=== PATIENT | male | born 1965 | race American Indian/Alaskan Native ===

== ENCOUNTER 2022-03-13 01:23 | Inpatient (IN) | payer OTHER ==
--- NOTE | 2022-03-13 02:32 | Emergency Department Report ---
HPI - General Chief Complaint: Dyspnea/Respdistress Time Seen by Provider: 03/13/22 02:14 - [facility] HPI: Room 4 Patient is a 56-year-old male present with a chief complaint of abdominal pain. Patient states he came to the emergency department because for the past 3 days he has had intermittent diffuse abdominal pain. Patient admits to nausea but denies vomiting. Patient denies diarrhea. Patient also states for the same on time he has had dyspnea on exertion. Patient has history of congestive heart failure and states he has been compliant with his Lasix. Patient states currently while at rest and not moving he does not have abdominal pain. Patient currently denies symptoms ED Past Medical Hx - Past Medical History Previous Medical History?: Yes Hx Hypertension: Yes Hx Congestive Heart Failure: Yes Hx Diabetes: Yes - Surgical History Past Surgical History?: No - Family History Family history: no significant - Social History Smoking Status: Never Smoker Substance Use Type: None (Denies illicit drug use) ED Review of Systems ROS: Stated complaint: CHF Other details as noted in HPI Constitutional: no symptoms reported Eyes: denies: eye pain ENT: denies: throat pain Respiratory: SOB with exertion Cardiovascular: dyspnea on exertion Endocrine: no symptoms reported Gastrointestinal: abdominal pain, nausea. denies: vomiting, diarrhea Genitourinary: denies: dysuria Musculoskeletal: denies: back pain Neurological: denies: headache Physical Exam - Physical Exam Vital Signs: Vital Signs 03/13/22 03/13/22 03/13/22 01:47 02:17 02:20 Temperature 98.4 F Pulse Rate 87 Respiratory 18 17 18 Rate Blood Pressure 149/88 O2 Sat by Pulse 94 94 99 Oximetry Physical Exam: GENERAL: The patient is a morbidly obese well-nourished male lying on stretcher not appearing to be in acute distress. [] HEENT: Normocephalic. Atraumatic. Extraocular motions are intact. Patient has moist mucous membranes. NECK: Supple. Trachea midline CHEST/LUNGS: Clear to auscultation. There is no respiratory distress noted. HEART/CARDIOVASCULAR: Regular. There is no tachycardia. There is no gallop rub or murmur. ABDOMEN: Abdomen is soft, with diffuse mild discomfort to palpation. Patient has normal bowel sounds. There is no abdominal distention. SKIN: There is no diaphoresis. NEURO: The patient is awake, alert, and oriented. The patient is cooperative. The patient has no focal neurologic deficits. The patient has normal speech. GCS 15 MUSCULOSKELETAL: There is no evidence of acute injury. ED Course Vital Signs 03/13/22 03/13/22 03/13/22 01:47 02:17 02:20 Temperature 98.4 F Pulse Rate 87 Respiratory 18 17 18 Rate Blood Pressure 149/88 O2 Sat by Pulse 94 94 99 Oximetry - Reevaluation(s) Reevaluation #1: 03/13/22 03:58 After fentanyl administration patient desatted to the 60s. Patient drifts to sleep but is easily awakened by verbal and tactile stimuli and answers questions appropriately at this time. Patient placed on nonrebreather and Narcan 0.4 mg ordered ED Medical Decision Making - Lab Data Result diagrams: 03/13/22 02:30 03/13/22 02:30 Laboratory Tests 03/13/22 03/13/22 02:30 02:30 WBC 6.8 RBC 4.47 Hgb 11.0 L Hct 35.5 MCV 80 L MCH 25 L MCHC 31 L RDW 21.0 H Plt Count 192 Lymph % (Auto) 24.4 [place] % (Auto) 10.1 H Eos % (Auto) 1.5 Baso % (Auto) 0.4 Lymph # (Auto) 1.6 [place] # (Auto) 0.7 Eos # (Auto) 0.1 Baso # (Auto) 0.0 Seg Neutrophils % 63.6 Seg Neutrophils # 4.3 Sodium 141 Potassium 4.3 Chloride 98.1 Carbon Dioxide 33 H Anion Gap 14 BUN 23 H Creatinine 1.1 Estimated GFR > 60 BUN/Creatinine Ratio 21 Glucose 99 Calcium 8.1 L Total Bilirubin 0.50 AST 13 ALT 13 Alkaline Phosphatase 73 NT-Pro-B Natriuret Pep 4736 H Total Protein 7.5 Albumin 3.5 L Albumin/Globulin Ratio 0.9 Lipase 12 L - EKG Data -: EKG Interpreted by Me EKG shows normal: sinus rhythm Rate: normal - EKG Data When compared to previous EKG there are: changes noted Interpretation: nonspecific ST-T wave robert (T wave inversions leads II, 3, aVF, V2, V3, V4, V5, V6) - Radiology Data Radiology results: report reviewed (CT abdomen pelvis, chest x-ray), image reviewed (CT abdomen pelvis, chest x-ray) interpreted by me: Chest x-ray-no vascular congestion. No pneumothorax. No definite focal infiltrate [facility] [address] [place] [address] Cat Scan Report Signed Patient: JEFFY GUNTER MR#: [id number] : 1965 Acct:[id number] Age/Sex: 56 / M ADM Date: 03/13/22 Loc: ED Attending Dr: Order ing Physician: RADHA OLIVIER MD Date of Service: 03/13/22 Procedure(s): CT abdomen pelvis w con Accession Number(s): [id number] cc: RADHA OLIVIER MD CT ABDOMEN AND PELVIS WITH CONTRAST INDICATION / CLINICAL INFORMATION: Diffuse pain. TECHNIQUE: Axial CT images were obtained through the abdomen and pelvis after 100 cc Omnipaque [address] scans at this location are performed using CT dose reduction for ALARA by means of automated exposure control. COMPARISON: None available. FINDINGS: LOWER CHEST: Moderate cardiomegaly. LIVER: No focal lesion. No acute findings. GALLBLADDER: No significant abnormality. BILE DUCTS: Not well visualized. SPLEEN: No significant abnormality. PANCREAS: No significant abnormality. ADRENALS: No significant abnormality. KIDNEYS/URETERS: No stones or hydronephrosis. No solid renal lesion. STOMACH / DUODENUM / SMALL BOWEL: The stomach, duodenum, and small bowel demonstrate no significant abnormality. No specific abnormality of the mesentery demonstrated. COLON: Diverticulosis without acute inflammation. APPENDIX: No significant abnormality. PERITONEUM: No free air or free fluid are present within the abdomen or pelvis. LYMPH NODES: No significant adenopathy. AORTA / ARTERIES: No significant abnormality. IVC / VEINS: No significant abnormality. URINARY BLADDER: No significant abnormality. REPRODUCTIVE ORGANS: No significant abnormality. ADDITIONAL ABDOMINAL/PELVIC FINDINGS: None. SKELETAL SYSTEM: Degenerative changes of the lumbar spine are present with straightening of lordosis and moderate loss of intervertebral disc space at L4-5 and L5-S1. V acuum disc phenomenon present. IMPRESSION: 1. No imaging findings to suggest etiology of the provided symptoms. Signer Name: Sonia Graham II, MD Signed: 03/13/2022 5:04 AM Workstation Name: [id number] Transcribed By: ROGER Dictated By: SONIA GRAHAM II, MD Electronically Authenticated By: SONIA GRAHAM II, MD Signed Date/Time: 03/13/22 0504 DD/ 0500 TD/TT: [facility] [address] [place] [address] XRay Report Signed Patient: JEFFY UGNTER MR#: [id number] : 1965 Acct:[id number] Age/Sex: 56 / M ADM Date: 03/13/22 Loc: ED Attending Dr: Ordering Physician: RADHA OLIVIER MD Date of Service: 03/13/22 Procedure(s): XR chest 1V ap Accession Number(s): [id number] cc: RADHA OLIVIER MD Fluoro Time In Terese saúl: CHEST 1 VIEW INDICATION / CLINICAL INFORMATION: Dyspnea on exertion. COMPARISON: None available. FINDINGS: SUPPORT DEVICES: None. HEART / MEDIASTINUM: Mild cardiomegaly. LUNGS / PLEURA: Enlarged central pulmonary vasculature. Trace fluid minor fissure. Beam attenuation from chest wall soft tissues. No focal airspace consolidation. BONES: No significant osseous abnormality. ADDITIONAL FINDINGS: No significant additional findings. IMPRESSION: 1. Cardiomegaly and mild pulmonary vascular congestive changes are suggested. Mild interstitial pulmonary edema not excluded. Signer Name: Sonia Graham II, MD Signed: 03/13/2022 3:20 AM Workstation Name: [id number] Transcribed By: ROGER Dictated By: SONIA GRAHAM II, MD Electronically Authenticated By: SONIA GRAHAM II, MD Signed Date/Time: 03/13/22 0320 DD/ TD/TT: - Differential Diagnosis Gastritis, pancreatitis, CHF exacerbation Critical care attestation.: If time is entered above; I have spent that time in minutes in the direct care of this critically ill patient, excluding procedure time. ED Disposition Clinical Impression: CHF exacerbation, Abdominal pain Disposition: ADMITTED INPATIENT Is pt being admited?: Yes Does the pt Need Aspirin: Yes Condition: Fair Time of Disposition: 05:31 (Care transferred to hospitalist (Dr Yeh))
[2022-03-13 02:57] LABS: Basophils % (Auto) 0.4 % (0.0-1.8); Eosinophils # (Auto) 0.1 K/mm3 (0.0-0.4); Eosinophils % (Auto) 1.5 % (0.0-4.3); Hematocrit 35.5 % (35.5-45.6); Lymphocytes # (Auto) 1.6 K/mm3 (1.2-5.4); Lymphocytes % (Auto) 24.4 % (13.4-35.0); Mean Corpuscular HGB Conc 31 % (32-34); Mean Corpuscular Volume 80 fl (84-94); Monocytes # (Auto) 0.7 K/mm3 (0.0-0.8); Monocytes % (Auto) 10.1 % (0.0-7.3); Platelet Count 192 K/mm3 (140-440); Red Blood Count 4.47 M/mm3 (3.65-5.03)
[2022-03-13 03:07] LABS: Alanine Aminotransferase 13 units/L (7-56); Albumin 3.5 g/dL (3.9-5); BUN/Creatinine Ratio 21; Blood Urea Nitrogen 23 mg/dL (9-20); Calcium 8.1 mg/dL (8.4-10.2); Hemolysis Index 4
--- NOTE | 2022-03-13 03:25 | XRay Report ---
CHEST 1 VIEW INDICATION / CLINICAL INFORMATION: Dyspnea on exertion. COMPARISON: None available. FINDINGS: SUPPORT DEVICES: None. HEART / MEDIASTINUM: Mild cardiomegaly. LUNGS / PLEURA: Enlarged central pulmonary vasculature. Trace fluid minor fissure. Beam attenuation f rom chest wall soft tissues. No focal airspace consolidation. BONES: No significant osseous abnormality. ADDITIONAL FINDINGS: No significant additional findings. IMPRESSION: 1. Cardiomegaly and mild pulmonary vascular congestive changes are suggested. Mild interstitial pulmo nary edema not excluded. Signer Name: Pj Das II, MD Signed: 03/13/2022 3:20 AM Workstation Name: [id number]
[2022-03-13] MEDS ORDERED: ONDANSETRON 4 MG/2 ML INJ IV ONE (03:29)
[2022-03-13] MEDS ORDERED: fentaNYL 100 MCG/2 ML INJ IV ONE ×2 (03:29→12:18)
[2022-03-13] MEDS ORDERED: NALOXONE 2 MG/2 ML INJ IV ONE ×3 (03:56→08:00)
[2022-03-13] MEDS ORDERED: NALOXONE 2 MG/2 ML INJ ONE (03:56)
[2022-03-13] MEDS ORDERED: FUROSEMIDE 40 MG/4 ML INJ IV ONE (05:00)
--- NOTE | 2022-03-13 05:09 | Cat Scan Report ---
CT ABDOMEN AND PELVIS WITH CONTRAST INDICATION / CLINICAL INFORMATION: Diffuse pain. TECHNIQUE: Axial CT images were obtained through the abdomen and pelvis after 100 cc Omnipaque [address] scans at this location are performed using CT dose reduction for ALARA by means of automated exposure control. COMPARISON: None available. FINDINGS: LOWER CHEST: Moderate cardiomegaly. LIVER: No focal lesion. No acute findings. GALLBLADDER: No significant abnormality. BILE DUCTS: Not well visualized. SPLEEN: No significant abnormality. PANCREAS: No significant abnormality. ADRENALS: No significant abnormality. KIDNEYS/URETERS: No stones or hydronephrosis. No solid renal lesion. STOMACH / DUODENUM / SMALL BOWEL: The stomach, duodenum, and small bowel demonstrate no significant a bnormality. No specific abnormality of the mesentery demonstrated. COLON: Diverticulosis without acute inflammation. APPENDIX: No significant abnormality. PERITONEUM: No free air or free fluid are present within the abdomen or pelvis. LYMPH NODES: No significant adenopathy. AORTA / ARTERIES: No significant abnormality. IVC / VEINS: No significant abnormality. URINARY BLADDER: No significant abnormality. REPRODUCTIVE ORGANS: No significant abnormality. ADDITIONAL ABDOMINAL/PELVIC FINDINGS: None. SKELETAL SYSTEM: Degenerative changes of the lumbar spine are present with straightening of lordosis and moderate loss of intervertebral disc space at L4-5 and L5-S1. Vacuum disc phenomenon present. IMPRESSION: 1. No imaging findings to suggest etiology of the provided symptoms. Signer Name: Pj Das II, MD Signed: 03/13/2022 5:04 AM Workstation Name: [id number]
[2022-03-13] MEDS ORDERED: MAGNESIUM HYDROXIDE (MOM) ORAL LIQD UDC PO PRN (05:48)
[2022-03-13] MEDS ORDERED: DEXTROSE 50% IN WATER (25GM) 50 ML SYRINGE IV PRN (05:48)
[2022-03-13] MEDS ORDERED: MORPHINE 2 MG/1 ML INJ IV PRN (05:48)
[2022-03-13] MEDS ORDERED: ONDANSETRON 4 MG/2 ML INJ IV PRN (05:48)
--- NOTE | 2022-03-13 05:59 | History and Physical Report ---
History of Present Illness Date of examination: 03/13/22 Date of admission: 03/13/2022 Chief complaint: Shortness of Breath Abdominal Pain History of present illness: 56-year-old -[place] male with known history of congestive heart failure, diabetes mellitus, hypertension and morbid obesity presenting to the emergency room today complaining of abdominal pain. Abdominal pain is said to be diffuse started sometime earlier today. He denies any fever or chills, denies any vomiting but has been having some nausea. Patient denies any diarrhea. Patient also indicates that he has been having intermittent shortness of breath especially on exertion. He states he has been compliant with his medications. While in the emergency room today patient had an episode of respiratory distress and became hypoxic. He was subsequently placed on nonrebreather with improvement in his oxygen saturation. Work-up in the emergency room today, chest x-ray reveals mild pulmonary vascular congestion and cardiomegaly. Labs significant for BUN of 23 and creatinine of 1.1. All other labs were essentially unremarkable. Past History Past Medical History: diabetes, heart failure, hypertension Past Surgical History: No surgical history Social history: no significant social history Family history: no significant family history Medications and Allergies Allergies Allergy/AdvReac Type Severity Reaction Status Date / Time No Known Allergies Allergy Unverified 03/13/22 01:55 Review of Systems Constitutional: no fever, no chills Ears, nose, mouth and throat: no nasal congestion, no sore throat Cardiovascular: no chest pain, no palpitations Respiratory: shortness of breath, no cough, no wheezing Gastrointestinal: no abdominal pain, no nausea, no vomiting, no diarrhea Genitourinary Male: no dysuria, no hematuria, no nocturia Musculoskeletal: no neck pain, no low back pain Integumentary: no rash, no pruritis Neurological: no headaches, no confusion Psychiatric: no anxiety, no depression Endocrine: no polyphagia, no polyuria, no nocturia Exam - Constitutional Vitals: Temp Pulse Resp BP Pulse Ox 98.4 F 94 H 18 141/91 92 03/13/22 01:47 03/13/22 04:04 03/13/22 04:10 03/13/22 04:01 03/13/22 04:10 General appearance: Present: no acute distress, well-nourished, obese - EENT Eyes: Present: PERRL, EOM intact. Absent: scleral icterus ENT: hearing intact, clear oral mucosa, dentition normal - Neck Neck: Present: supple, normal ROM - Respiratory Respiratory effort: normal Respiratory: bilateral: rales - Cardiovascular Rhythm: regular Heart Sounds: Present: S1 & S2. Absent: gallop, systolic murmur, diastolic murmur, rub, click - Extremities Extremities: no ischemia, pulses intact, pulses symmetrical, normal temperature, Full ROM Extremity abnormal: edema (2+ bilateral lower extremity edema), ulceration (Dressing over ulcer on the lower one third of of left leg), other (Hyperpigmentation of skin on bilateral lower extremities) Peripheral Pulses: within normal limits - Abdominal General gastrointestinal: Present: soft, non-tender, non-distended (Very obese), normal bowel sounds. Absent: mass - Integumentary Integumentary: Present: clear, warm, dry, normal turgor. Absent: rash - Musculoskeletal Musculoskeletal: strength equal bilaterally - Psychiatric Psychiatric: appropriate mood/affect, intact judgment & insight, memory intact, cooperative - Neurologic Neurologic: CNII-XII intact, no focal deficits, moves all extremities Results - Labs CBC & Chem 7: 03/13/22 02:30 03/13/22 02:30 Labs: Abnormal lab results 03/13/22 03/13/22 Range/Units 02:30 02:30 Hgb 11.0 L (11.8-15.2) gm/dl MCV 80 L (84-94) fl MCH 25 L (28-32) pg MCHC 31 L (32-34) % RDW 21.0 H (13.2-15.2) % [place] % (Auto) 10.1 H (0.0-7.3) % Carbon Dioxide 33 H (22-30) mmol/L BUN 23 H (9-20) mg/dL Calcium 8.1 L (8.4-10.2) mg/dL NT-Pro-B Natriuret Pep 4736 H (0-900) pg/mL Albumin 3.5 L (3.9-5) g/dL Lipase 12 L (13-60) units/L Assessment and Plan - Patient Problems (1) CHF exacerbation Status: Acute Plan to address problem: Patient admitted and placed on diuretics Will monitor of input and output and also monitor daily weight. We will schedule patient for echocardiogram. (2) Abdominal pain Status: Acute Plan to address problem: Etiology is unclear. CT scan of the abdomen and pelvis did not reveal any acute abnormality. Will place on analgesic medication as needed. (3) Diabetes mellitus Status: Acute Plan to address problem: Patient placed on sliding scale insulin. Will monitor Accu-Cheks. (4) Morbid obesity with BMI of 50.0-59.9, adult Status: Acute Plan to address problem: BMI of 59.3 Dietary consult requested Labs modification encouraged. (5) DVT prophylaxis Status: Acute Plan to address problem: Patient placed on subcutaneous heparin. (6) Full code status Status: Acute Plan to address problem: Patient is full code.
[2022-03-13] MEDS ORDERED: FUROSEMIDE 40 MG/4 ML INJ IV SCH (06:00)
[2022-03-13 08:24] LABS: ABG Base Excess 5.7 mmol/L (-2.0-3.0); ABG HCO3 41.7 mmol/L (20.0-26.0); ABG Methemoglobin 0.6 % (0.0-1.5); ABG Oxygen Saturation 90.4 % (95.0-99.0); ABG PCO2 172.7 mm Hg; ABG PO2 90.8 mm Hg (80.0-90.0)
[2022-03-13 08:30] LABS: ABG PH 7.001 pH Units (7.350-7.450)
[2022-03-13] MEDS ORDERED: KETAMINE 500 MG/5 ML VIAL MDV ONE (08:40)
[2022-03-13] MEDS ORDERED: ROCURONIUM 50 MG/5 ML INJ IV ONE ×2 (08:41→09:05)
[2022-03-13 08:52] LABS: Bacteria,Urine 1+ /HPF (Negative); Bilirubin,Urine NEG (Negative); Blood,Urine NEG (Negative); Color,Urine Yellow (Yellow); Hyaline Casts,Urine 1 /LPF; Mucus,Urine FEW /HPF; RBC,Urine < 1.0 /HPF (0.0-6.0); Urobilinogen,Urine < 2.0 mg/dL (<2.0); WBC,Urine < 1.0 /HPF (0.0-6.0)
[2022-03-13] MEDS ORDERED: KETAMINE 200 MG/20 ML INJ MDV IV ONE (09:05)
--- NOTE | 2022-03-13 09:09 | Procedure Note ---
Date of procedure: 03/13/22 Pre-op diagnosis: Acute hypercarbic respiratory failure Post-op diagnosis: same Procedure: Received a phone call from hospital physician, Dr. Ramiro Bee, requesting intubation for ABG demonstrating acute hypercarbic respiratory failure and decompensated respiratory acidosis. Patient is on a BiPAP, and reported to be unresponsive. During quick evaluation, the patient is obtunded, and on BiPAP. A decision is made to intubate given the aforementioned. Patient moved into room 2, placed on electronic device monitor, pulse oximeter, nasal cannula, 15 L/min, and is currently on positive pressure ventilation. Patient is induced with 400 mg of ketamine, and video laryngoscopy is performed with a curved S4 laryngoscope blade. He received 200 mg of rocuronium The trachea is visualized, and a 7.5 endotracheal tube is gently inserted through the trachea. The ship's pilot balloon is inflated, and fastens in place, 24 cm at the lip. He has appropriate end-tidal capnography color change, and remains hemodynamically stable. The hospital physician is updated. An x-ray is ordered, but I will defer to the inpatient team to follow-up on postintubation sedation package, as well as contacting critical care team to arrange admission to the ICU. The patient tolerated the procedure well, without obvious complications. Assisted by respiratory therapist Shamika Kwon. Soft tissue neck-2 frontal images INDICATION: ETT PLACEment. COMPARISON: Chest x-ray from today IMPRESSION: Endotracheal tube terminates just below the level the clavicles in satisfactory position. Unchanged lung findings. NG tube projects below the sbasp-rh-ahde. Signer Name: Matthieu Pryor MD Signed: 03/13/2022 9:27 AM Workstation Name: [id number] CHEST - 1 VIEW INDICATION: resp failure ett placement COMPARISON: Earlier today FINDINGS: SUPPORT DEVICES: Nasogastric tube placement with tip projecting below the [id number]-lk-nmzh into the stomach. HEART: Stable cardiomediastinal silhouette. LUNGS/PLEURA: Unchanged findings of interstitial edema and right hilar prominence. ADDITIONAL FINDINGS: None. IMPRESSION: New NG tube projecting below the msfpi-me-hekh to the stomach. Otherwise unchanged exam. Signer Name: Matthieu Pryor MD Signed: 03/13/2022 8:41 AM Workstation N neel: [id number] Anesthesia: other (Ketamine, rocuronium) Surgeon: NATACHA SAMAYOA [employer]: JENNIFER KWON Estimated blood loss: none Condition: critical Disposition: ICU
--- NOTE | 2022-03-13 09:45 | XRay Report ---
CHEST - 1 VIEW INDICATION: resp failure ett placement COMPARISON: Earlier today FINDINGS: SUPPORT DEVICES: Nasogastric tube placement with tip projecting below the taypl-au-rdxh into the sto mach. HEART: Stable cardiomediastinal silhouette. LUNGS/PLEURA: Unchanged findings of interstitial edema and right hilar prominence. ADDITIONAL FINDINGS: None. IMPRESSION: New NG tube projecting below the iuefp-sn-hrsr to the stomach. Otherwise unchanged exam. Signer Name: Matthieu Pryor MD Signed: 03/13/2022 9:41 AM Workstation Name: [id number]
--- NOTE | 2022-03-13 10:27 | Consultation ---
History of Present Illness Consult date: 03/13/22 Consult reason: congestive heart failure, hypertension History of present illness: 56-year-old morbidly obese -[place] male presenting with shortness of breath who was found to be in hypoxemic hypercapnic respiratory failure and currently intubated on the ventilator patient is currently unresponsive given his sedation. Past History Past Medical History: diabetes, heart failure, hypertension Past Surgical History: No surgical history Social history: no significant social history Family history: no significant family history Medications and Allergies Allergies Allergy/AdvReac Type Severity Reaction Status Date / Time No Known Allergies Allergy Unverified 03/13/22 01:55 Active Meds: Active Medications Acetaminophen (Acetaminophen 325 Mg Tab) 650 mg PO Q4H PRN PRN Reason: Pain MILD(1-3)/Fever >100.5/DEJESUS Dextrose (Dextrose 50% In Water (25gm) 50 Ml Syringe) 0 ml IV Q30MIN PRN; Protocol PRN Reason: Hypoglycemia Furosemide (Furosemide 40 Mg/4 Ml Inj) 40 mg IV BID@0600,1800 GERRI Last Admin: 03/13/22 06:27 Dose: Not Given Heparin Sodium (Porcine) (Heparin 5,000 Unit/1 Ml Vial) 5,000 unit SUB-Q Q8H GERRI Insulin Human Lispro (Insulin Lispro 100 Unit/Ml) 0 unit SUB-Q ACHS ON LICENSE OF [facility]; Protocol Magnesium Hydroxide (Magnesium Hydroxide (Mom) Oral Liqd Udc) 30 ml PO Q4H PRN PRN Reason: Constipation Morphine Sulfate (Morphine 2 Mg/1 Ml Inj) 2 mg IV Q4H PRN PRN Reason: Pain, Moderate (4-6) Morphine Sulfate (Morphine 4 Mg/1 Ml Inj) 4 mg IV Q4H PRN PRN Reason: Pain , Severe (7-10) Ondansetron HCl (Ondansetron 4 Mg/2 Ml Inj) 4 mg IV Q8H PRN PRN Reason: Nausea And Vomiting Sodium Chloride (Sodium Chloride 0.9% 10 Ml Flush Syringe) 10 ml IV BID GERRI Sodium Chloride (Sodium Chloride 0.9% 10 Ml Flush Syringe) 10 ml IV PRN PRN PRN Reason: LINE FLUSH Review of Systems ROS unobtainable: due to endotracheal tube, due to mental status Physical Examination Vital Signs Temp Pulse Resp BP Pulse Ox 98.4 F 87 18 149/88 94 03/13/22 01:47 03/13/22 01:47 03/13/22 01:47 03/13/22 01:47 03/13/22 01:47 General appearance: obese (intubated) HEENT: Positive: PERRL, Normocephaly, Mucus Membranes Moist. Negative: Jaundice Neck: Positive: neck supple, trachea midline. Negative: JVD/HJR Cardiac: Positive: Regular Rate, S1/S2, Dilated, Laterally Displaced. Negative: S3 Lungs: Positive: clear to auscultation, No Wheeze, Rales, Rhonchi Neuro: Positive: No Lateralizing Findings Abdomen: Positive: Soft, Active Bowel Sounds Extremities: Present: edema, Other (peripheral ulcer left leg, hyperpigmentation both lower legs with vascular skin changes) Results 03/13/22 02:30 03/13/22 02:30 Cardiac Enzymes 03/13/22 Range/Units 02:30 AST 13 (5-40) units/L CBC 03/13/22 Range/Units 02:30 WBC 6.8 (4.5-11.0) K/mm3 RBC 4.47 (3.65-5.03) M/mm3 Hgb 11.0 L (11.8-15.2) gm/dl Hct 35.5 (35.5-45.6) % Plt Count 192 (140-440) K/mm3 Lymph # (Auto) 1.6 (1.2-5.4) K/mm3 [place] # (Auto) 0.7 (0.0-0.8) K/mm3 Eos # (Auto) 0.1 (0.0-0.4) K/mm3 Baso # (Auto) 0.0 (0.0-0.1) K/mm3 Comprehensive Metabolic Panel 03/13/22 Range/Units 02:30 Sodium 141 (137-145) mmol/L Potassium 4.3 (3.6-5.0) mmol/L Chloride 98.1 (98-107) mmol/L Carbon Dioxide 33 H (22-30) mmol/L BUN 23 H (9-20) mg/dL Creatinine 1.1 (0.8-1.3) mg/dL Glucose 99 (75-100) mg/dL Calcium 8.1 L (8.4-10.2) mg/dL AST 13 (5-40) units/L ALT 13 (7-56) units/L Alkaline Phosphatase 73 (35-129) units/L Total Protein 7.5 (6.3-8.2) g/dL Albumin 3.5 L (3.9-5) g/dL EKG interpretations - Telemetry EKG Rhythm: Sinus Rhythm Assessment and Plan 1. 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 Dilated cardiomyopathy 3. Essential hypertension 4. Respiratory failure currently intubated on the mechanical ventilator 5. Morbid obesity 6. Type 2 diabetes mellitus Patient is currently intubated and sedated. Nitro ointment to be applied for pre and afterload reduction of the left ventricle and echocardiogram be done to assess global and regional left ventricular systolic function. Intravenous diuretics. Pulmonary consultation for management of respiratory failure and ventilator
--- NOTE | 2022-03-13 10:31 | XRay Report ---
Soft tissue neck-2 frontal images INDICATION: ETT PLACEment. COMPARISON: Chest x-ray from today IMPRESSION: Endotracheal tube terminates just below the level the clavicles in satisfactory position . Unchanged lung findings. NG tube projects below the idxak-dy-akma. Signer Name: Matthieu Pryor MD Signed: 03/13/2022 10:27 AM Workstation Name: [id number]
[2022-03-13] MEDS ORDERED: IPRATROPIUM/ALBUTEROL SULFATE 3 ML AMPUL.NEB IH PRN (10:52)
[2022-03-13 11:26] LABS: ABG Base Excess 9.6 mmol/L (-2.0-3.0); ABG HCO3 35.2 mmol/L (20.0-26.0); ABG Methemoglobin 0.5 % (0.0-1.5); ABG Oxygen Saturation 93.6 % (95.0-99.0); ABG PCO2 52.3 mm Hg; ABG PH 7.446 pH Units (7.350-7.450); ABG PO2 56.8 mm Hg (80.0-90.0)
--- NOTE | 2022-03-13 12:43 | Progress Note ---
Assessment and Plan Critical care statement The high probability OF a clinically significant sudden or life-threatening deterioration of the cardiorespiratory system and endocrine system required my full and direct attention, intervention and postoperative management. The aggregate critical care time was 40 minutes. The time is in addition to time spent performing reported procedures but includes the followin: Data review and interpretation 2: Patient assessment and monitoring of vital signs 3: Documentation 4:: Medication orders and management - Patient Problems (1) Acute respiratory failure with hypoxia and hypercapnia Current Visit: Yes Status: Acute Plan to address problem: Patient to be intubated by anesthesia (2) Acute encephalopathy Current Visit: Yes Status: Acute Plan to address problem: Secondary to hypercarbia (3) COPD with acute exacerbation Current Visit: Yes Status: Acute Plan to address problem: IV abx,High dose IV steroids and IV abx Vent protocol (4) CHF exacerbation Current Visit: No Status: Acute Qualifiers: Heart failure type: unspecified Qualified Code(s): I50.9 - Heart failure, unspecified Plan to address problem: BNP is high IV Lasix for now Aldactone Echocardiogram for ejection fraction Cardiology consult requested (5) T2DM (type 2 diabetes mellitus) Current Visit: Yes Status: Acute (6) Morbid obesity with BMI of 50.0-59.9, adult Current Visit: No Status: Acute Plan to address problem: Needs to follw with bariatric surgery dept in the hospital after discharge life style modification (7) Stasis dermatitis Current Visit: Yes Status: Chronic Qualifiers: Laterality: bilateral Qualified Code(s): I87.2 - Venous insufficiency (chronic) (peripheral) Plan to address problem: Stasis dermatitis bilateral lower extremity Venous insufficiency (8) DVT prophylaxis Current Visit: No Status: Acute Plan to address problem: On Heparin and GI -prophylaxis Subjective Date of service: 03/13/22 Principal diagnosis: Acute resp failure with hypoxia and hypercarbia Interval history: 56-year-old -L[place] male with known history of congestive heart failure, diabetes mellitus, hypertension and morbid obesity presenting to the emergency room today complaining of abdominal pain. Abdominal pain is said to be diffuse started sometime earlier today. He denies any fever or chills, denies any vomiting but has been having some nausea. Patient denies any diarrhea. Patient also indicates that he has been having intermittent shortness of breath especially on exertion. He states he has been compliant with his medications. While in the emergency room today patient had an episode of respiratory distress and became hypoxic. He was subsequently placed on nonrebreather with improvement in his oxygen saturation. Work-up in the emergency room today, chest x-ray reveals mild pulmonary vascular congestion and cardiomegaly. Labs significant for BUN of 23 and creatinine of 1.1. All other labs were essentially unremarkable. On Reeval patient is unresponsive on bipap ABG repeated---reveals Pco2 of 172 Intubation was initiated Objective - Constitutional Vitals: Vital Signs - 12hr 03/13/22 03/13/22 03/13/22 01:47 02:17 02:20 Temperature 98.4 F Pulse Rate 87 Respiratory 18 17 18 Rate Blood Pressure 149/88 Blood Pressure [Left] O2 Sat by Pulse 94 94 99 Oximetry 03/13/22 03/13/22 03/13/22 02:37 04:01 04:04 Temperature Pulse Rate 78 93 H 94 H Respiratory 17 21 Rate Blood Pressure Blood Pressure 141/91 [Left] O2 Sat by Pulse 91 96 Oximetry 03/13/22 03/13/22 03/13/22 04:10 06:17 07:04 Temperature 97.1 F L Pulse Rate 97 H Respiratory 18 18 17 Rate Blood Pressure Blood Pressure 156/88 [Left] O2 Sat by Pulse 92 92 95 Oximetry 03/13/22 03/13/22 08:20 09:00 Temperature Pulse Rate 85 100 H Respiratory 14 Rate Blood Pressure 135/88 Blood Pressure 116/71 [Left] O2 Sat by Pulse 87 99 Oximetry General appearance: Present: severe distress, well-nourished - EENT Eyes: PERRL, EOM intact ENT: hearing intact, clear oral mucosa Ears: bilateral: normal - Neck Neck: supple, normal ROM - Respiratory Respiratory effort: normal Respiratory: bilateral: diminished, rhonchi, wheezing - Breasts Breasts: normal - Cardiovascular Rhythm: regular Heart Sounds: Present: S1 & S2. Absent: gallop, rub Extremities: pulses intact, No edema, normal color, Full ROM - Gastrointestinal General gastrointestinal: Present: soft, non-tender, non-distended, normal bowel sounds - Genitourinary Male genitourinary: normal - Integumentary Integumentary: clear, warm, dry - Musculoskeletal Musculoskeletal: 1, strength equal bilaterally - Neurologic Neurologic: moves all extremities - Psychiatric Psychiatric: other (Decreased responsiveness) - Labs CBC & Chem 7: 05/29/22 02:30 03/13/22 02:30 Labs: Abnormal lab results 03/13/22 03/13/22 03/13/22 Range/Units 02:30 02:30 07:50 Hgb 11.0 L (11.8-15.2) gm/dl MCV 80 L (84-94) fl MCH 25 L (28-32) pg MCHC 31 L (32-34) % RDW 21.0 H (13.2-15.2) % [place] % (Auto) 10.1 H (0.0-7.3) % ABG pH 7.001 L* (7.350-7.450) pH Units ABG pO2 90.8 H (80.0-90.0) mm Hg ABG HCO3 41.7 H (20.0-26.0) mmol/L ABG O2 Saturation 90.4 L (95.0-99.0) % ABG Base Excess 5.7 H (-2.0-3.0) mmol/L ABG Hemoglobin 12.1 L (14.0-18.0) gm/dl Oxyhemoglobin 87.7 L (95.0-99.0) % Carbon Dioxide 33 H (22-30) mmol/L BUN 23 H (9-20) mg/dL Calcium 8.1 L (8.4-10.2) mg/dL NT-Pro-B Natriuret Pep 4736 H (0-900) pg/mL Albumin 3.5 L (3.9-5) g/dL Lipase 12 L (13-60) units/L 03/13/22 Range/Units 11:10 Hgb (11.8-15.2) gm/dl MCV (84-94) fl MCH (28-32) pg MCHC (32-34) % RDW (13.2-15.2) % [place] % (Auto) (0.0-7.3) % ABG pH (7.350-7.450) pH Units ABG pO2 56.8 L (80.0-90.0) mm Hg ABG HCO3 35.2 H (20.0-26.0) mmol/L ABG O2 Saturation 93.6 L (95.0-99.0) % ABG Base Excess 9.6 H (-2.0-3.0) mmol/L ABG Hemoglobin 12.1 L (14.0-18.0) gm/dl Oxyhemoglobin 91.0 L (95.0-99.0) % Carbon Dioxide (22-30) mmol/L BUN (9-20) mg/dL Calcium (8.4-10.2) mg/dL NT-Pro-B Natriuret Pep (0-900) pg/mL Albumin (3.9-5) g/dL Lipase (13-60) units/L Short CBC 03/13/22 Range/Units 02:30 WBC 6.8 (4.5-11.0) K/mm3 Hgb 11.0 L (11.8-15.2) gm/dl Hct 35.5 (35.5-45.6) % Plt Count 192 (140-440) K/mm3 BMP 03/13/22 02:30 Sodium 141 Potassium 4.3 Chloride 98.1 Carbon Dioxide 33 H BUN 23 H Creatinine 1.1 Glucose 99 Calcium 8.1 L Liver Function 03/13/22 Range/Units 02:30 Total Bilirubin 0.50 (0.1-1.2) mg/dL AST 13 (5-40) units/L ALT 13 (7-56) units/L Alkaline Phosphatase 73 (35-129) units/L Albumin 3.5 L (3.9-5) g/dL Urine 03/13/22 Range/Units 07:20 Urine Color Yellow (Yellow) Urine pH 5.0 (5.0-7.0) Ur Specific [place] 1.012 (1.003-1.030) Urine Protein 30 mg/dl (Negative) mg/dL Urine Glucose (UA) Neg (Negative) mg/dL
[2022-03-13] MEDS ORDERED: MIDAZOLAM 5 MG/5 ML INJ MDV IV SCH (13:00)
[2022-03-13] MEDS: cefTRIAXone/NS 2 GM/100 ML 2 GM/100 ML BAG IV SCH (13:07)
[2022-03-13] MEDS: IPRATROPIUM/ALBUTEROL SULFATE 3 ML AMPUL.NEB IH SCH ×3 (13:11→19:54)
[2022-03-13] MEDS ORDERED: methylPREDNISolone Sod Succinate 125 MG/2 ML INJ IV SCH (14:00)
[2022-03-13] MEDS: SPIRONOLACTONE 50 MG TAB PO SCH (15:16)
[2022-03-13] MEDS: NITROGLYCERIN 2% OINT 1 GM TP SCH ×2 (15:20→17:56)
[2022-03-13] MEDS: INSULIN LISPRO 100 UNIT/ML SUB-Q SCH ×2 (16:22→22:57)
[2022-03-13] MEDS: HEPARIN 5,000 UNIT/1 ML VIAL SUB-Q SCH (16:27)
[2022-03-13] MEDS: AZITHROMYCIN/NS 500 MG/250 ML 500 MG/250 ML BAG IV SCH (16:40)
[2022-03-13] MEDS: hydrALAZINE 20 MG/1 ML INJ IV PRN (17:05)
[2022-03-13] MEDS: FUROSEMIDE 40 MG/4 ML INJ IV SCH (17:57)
--- NOTE | 2022-03-13 19:30 | Consultation ---
History of Present Illness Consult date: 03/13/22 Requesting physician: JENNIFER ELISE Reason for consult: other (Acute hypoxic hypercapnic resp failure on MVS) History of present illness: 56-year-old -[place] male with known history of congestive heart failure, diabetes mellitus, hypertension and morbid obesity presenting to the emergency room today complaining of abdominal pain. Abdominal pain is said to be diffuse started sometime earlier today. He denies any fever or chills, denies any vomiting but has been having some nausea. Patient denies any diarr hea. Patient also indicates that he has been having intermittent shortness of breath especially on exertion. He states he has been compliant with his medications. While in the emergency room today patient had an episode of respiratory distress and became hypoxic. He was subsequently placed on nonrebreather with improvement in his oxygen saturation. Work-up in the emergency room today, chest x-ray reveals mild pulmonary vascular congestion and cardiomegaly. Labs significant for BUN of 23 and creatinine of 1.1. All other labs were essentially unremarkable. After fentanyl administration patient dropped his SpO2 to the 60s. Patient placed on non rebreather and Narcan 0.4 mg ordered He was placed on BIPAP, with worsening encephaloapthy, ABG was ordered which showed acute severe uncompensated resp acidosis, the patient was orally intubated and admitted to the ICU Patient seen and examined. Vitals, labs, medications, chart and imaging reviewed. He cannot give a history at this time secondary to encephalopathy and intubation status. Past History Past Medical History: diabetes, heart failure, hypertension Past Surgical History: No surgical history Social history: no significant social history Family history: no significant family history Medications and Allergies Allergies Allergy/AdvReac Type Severity Reaction Status Date / Time No Known Allergies Allergy Unverified 03/13/22 01:55 Active Meds: Active Medications Acetaminophen (Acetaminophen 325 Mg Tab) 650 mg PO Q4H PRN PRN Reason: Pain MILD(1-3)/Fever >100.5/DEJESUS Albuterol/Ipratropium (Ipratropium/Albuterol Sulfate 3 Ml Ampul.Neb) 1 ampul IH Q3H PRN PRN Reason: Wheezing Albuterol/Ipratropium (Ipratropium/Albuterol Sulfate 3 Ml Ampul.Neb) 1 ampul IH QIDRT GERRI Last Admin: 03/13/22 16:01 Dose: 1 ampul Dextrose (Dextrose 50% In Water (25gm) 50 Ml Syringe) 0 ml IV Q30MIN PRN; Protocol PRN Reason: Hypoglycemia Furosemide (Furosemide 40 Mg/4 Ml Inj) 40 mg IV 0600,1800 [facility] Last Admin: 03/13/22 17:57 Dose: 40 mg Heparin Sodium (Porcine) (Heparin 5,000 Unit/1 Ml Vial) 5,000 unit SUB-Q Q8H [facility] Last Admin: 03/13/22 16:27 Dose: 5,000 unit Hydralazine HCl (Hydralazine 20 Mg/1 Ml Inj) 10 mg IV Q3H PRN PRN Reason: Hypertension Last Admin: 03/13/22 17:05 Dose: 10 mg Azithromycin (Zithromax/Ns) 500 mg in 250 mls @ 250 mls/hr IV Q24H [facility] Last Admin: 03/13/22 16:40 Dose: 250 mls/hr Ceftriaxone Sodium (Rocephin/Ns 2 Gm/100 Ml) 2 gm in 100 mls @ 200 mls/hr IV Q24HR [facility]; Protocol Last Admin: 03/13/22 13:07 Dose: 200 mls/hr Insulin Human Lispro (Insulin Lispro 100 Unit/Ml) 0 unit SUB-Q ACHS [facility]; Protocol Last Admin: 03/13/22 16:22 Dose: Not Given Magnesium Hydroxide (Magnesium Hydroxide (Mom) Oral Liqd Udc) 30 ml PO Q4H PRN PRN Reason: Constipation Methylprednisolone Sodium Succinate (Methylprednisolone Sod Succinate 125 Mg/2 Ml Inj) 125 mg IV Q8HR [facility] Last Admin: 03/13/22 15:19 Dose: 125 mg Midazolam HCl (Midazolam 5 Mg/5 Ml Inj Mdv) 5 mg IV ONCE [facility] Last Admin: 03/13/22 12:36 Dose: 5 mg Morphine Sulfate (Morphine 2 Mg/1 Ml Inj) 2 mg IV Q4H PRN PRN Reason: Pain, Moderate (4-6) Morphine Sulfate (Morphine 4 Mg/1 Ml Inj) 4 mg IV Q4H PRN PRN Reason: Pain , Severe (7-10) Nitroglycerin (Nitroglycerin 2% Oint 1 Gm) 1 inch TP TIDNTG [facility]; Protocol Last Admin: 03/13/22 17:56 Dose: 1 inch Ondansetron HCl (Ondansetron 4 Mg/2 Ml Inj) 4 mg IV Q8H PRN PRN Reason: Nausea And Vomiting Sodium Chloride (Sodium Chloride 0.9% 10 Ml Flush Syringe) 10 ml IV BID [facility] Last Admin: 03/13/22 13:08 Dose: 10 ml Sodium Chloride (Sodium Chloride 0.9% 10 Ml Flush Syringe) 10 ml IV PRN PRN PRN Reason: LINE FLUSH Spironolactone (Spironolactone 50 Mg Tab) 50 mg PO QDAY [facility] Last Admin: 03/13/22 15:16 Dose: Not Given Review of Systems ROS unobtainable: due to endotracheal tube, due to mental status Physical Examination Vital signs: Vital Signs Temp Pulse Resp BP Pulse Ox 98.4 F 87 18 149/88 94 03/13/22 01:47 03/13/22 01:47 03/13/22 01:47 03/13/22 01:47 03/13/22 01:47 General appearance: no acute distress, other (atruamatic, normocephalic, alrge neck, orally intuabted) Eyes: non-icteric ENT: other (ETT at ) Neck: supple, no lymphadenopathy, other (short large neck) Ascultation: Bilateral: diminished breath sounds, rhonchi Cardiovascular: regular rate and rhythm, other (S1,S2) Gastrointestinal: normoactive bowel sounds, soft, non-tender, non-distended Extremities: edema (3+, scrotal edema, anterior abdominal wall edema) non-focal exam (grossly), unable to assess other (Unale to assess mood or affect) Results - Laboratory Findings CBC and BMP: 03/14/22 Unknown 03/14/22 02:50 ABG ABG pH 7.446 pH Units (7.350-7.450) 03/13/22 11:10 ABG pCO2 52.3 mm Hg 03/13/22 11:10 ABG pO2 56.8 mm Hg (80.0-90.0) L 03/13/22 11:10 ABG O2 Saturation 93.6 % (95.0-99.0) L 03/13/22 11:10 Abnormal lab findings: Abnormal Labs 03/13/22 03/13/22 03/13/22 02:30 02:30 07:50 Hgb 11.0 L MCV 80 L MCH 25 L MCHC 31 L RDW 21.0 H [place] % (Auto) 10.1 H ABG pH 7.001 L* ABG pO2 90.8 H ABG HCO3 41.7 H ABG O2 Saturation 90.4 L ABG Base Excess 5.7 H ABG Hemoglobin 12.1 L Oxyhemoglobin 87.7 L Carbon Dioxide 33 H BUN 23 H Calcium 8.1 L NT-Pro-B Natriuret Pep 4736 H Albumin 3.5 L Lipase 12 L 03/13/22 11:10 Hgb MCV MCH MCHC RDW [place] % (Auto) ABG pH ABG pO2 56.8 L ABG HCO3 35.2 H ABG O2 Saturation 93.6 L ABG Base Excess 9.6 H ABG Hemoglobin 12.1 L Oxyhemoglobin 91.0 L Carbon Dioxide BUN Calcium NT-Pro-B Natriuret Pep Albumin Lipase - Diagnostic Findings Chest x-ray: image reviewed (Cardiomegaly, alveolar edema) Assessment and Plan Acute and chronic Respiratory Failure with Hypoxia and Hypercapnia 2/2 CHF Exacerbation on MVS Probable AGUS/Obesity Hypoventilation Syndrome Extreme obesity BMI 59.4 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 Daily SBT -Fentnayl infusion fro pain managemnt. Titrate to CPOT 0-2 - CXR suggesting possible pulmonary edema, pulmonary venous hypertension -Diuresis while monitoring renal function, hemodynamics and electrolyte profile -Replete electrolytes as clinically indicated - IV steroids and bronchodilators- discontinue steroids -Empiric antibiotics therapy fro CAP- get procalitonin levels. If normal, discontinue antibiotics -Accuchecks with glycemic control. target blood glucose 140-180 mg/dL. Avoid hypoglycemia -Confirm OGT position and initiate enteric nutritional support -VTE prophylaxis- Heparin -Avoid nephrotoxins and renally dose all medications -Stress ulcer prophylaxsis- start famotidine -Mobility, frequent turning, off loading per facility protocol to prevent pressure ulcers - Strict I&Os and Daily weights -Heart failure measures, Follow echocardiogram -Maintnain sleep wake cycle, avoid benzodiazepines. -Limit delirium CONDITION:CRITICAL PROGNOSIS: GUARDED CODE STATUS; FULL CODE The high probability of a clinically significant, sudden or life threatening deterioration of the respiratory, cardiovascular, neurology system required my full and direct attention, intervention and personal management. The aggregate critical care time was [75] minutes. This time is in addition to time spent performing reported procedures but includes the following: [x] Data Review and interpretation [x] Patient assessment and monitoring of vital signs [x] Documentation [x] Medication orders and management
[2022-03-13] MEDS ORDERED: LIP THERAPY VASELINE TP PRN (19:33)
[2022-03-13] MEDS ORDERED: MINERAL OIL/PETROLATUM, WHITE OPHTH OINT 3.5 GM OU PRN (19:33)
[2022-03-13] MEDS: MORPHINE 4 MG/1 ML INJ IV PRN (20:10)
[2022-03-13] MEDS: methylPREDNISolone Sod Succinate 40 MG/1 ML INJ IV SCH (22:58)
[2022-03-13] MEDS: FAMOTIDINE 20 MG/2 ML INJ IV SCH (22:58)
[2022-03-13] MEDS: SENNOSIDES/DOCUSATE SODIUM 8.6/50 MG TAB FEEDTUBE SCH (22:58)
[2022-03-14] MEDS: HEPARIN 5,000 UNIT/1 ML VIAL SUB-Q SCH ×3 (00:05→16:35)
[2022-03-14] MEDS: MORPHINE 4 MG/1 ML INJ IV PRN (01:15)
[2022-03-14 02:54] LABS: Hematocrit 35.7 % (35.5-45.6); Hemoglobin 11.2 gm/dl (11.8-15.2); Mean Corpuscular HGB Conc 31 % (32-34); Mean Corpuscular Volume 78 fl (84-94); Platelet Count 181 K/mm3 (140-440); Red Blood Count 4.55 M/mm3 (3.65-5.03)
[2022-03-14 03:05] LABS: Red Cell Distribution Width 20.8 % (13.2-15.2)
[2022-03-14 03:08] LABS: BUN/Creatinine Ratio 21; Blood Urea Nitrogen 23 mg/dL (9-20); Calcium 7.6 mg/dL (8.4-10.2); Hemolysis Index 334
[2022-03-14 04:22] LABS: Band Neutrophils # (Manual) 0.2 K/mm3; Total Cells Counted 100
[2022-03-14 04:23] LABS: Basophils % (Manual) 0 % (0.0-1.8)
[2022-03-14 04:24] LABS: Platelet Estimate Consistent w Auto
[2022-03-14 05:38] LABS: ABG Base Excess 8.9 mmol/L (-2.0-3.0); ABG HCO3 33.5 mmol/L (20.0-26.0); ABG Methemoglobin 0.6 % (0.0-1.5); ABG Oxygen Saturation 96.9 % (95.0-99.0); ABG PCO2 46.1 mm Hg; ABG PH 7.478 pH Units (7.350-7.450); ABG PO2 76.2 mm Hg (80.0-90.0)
[2022-03-14] MEDS: NITROGLYCERIN 2% OINT 1 GM TP SCH ×3 (06:27→17:05)
[2022-03-14] MEDS: FUROSEMIDE 40 MG/4 ML INJ IV SCH ×2 (06:27→17:04)
[2022-03-14] MEDS: methylPREDNISolone Sod Succinate 40 MG/1 ML INJ IV SCH (06:27)
[2022-03-14] MEDS: IPRATROPIUM/ALBUTEROL SULFATE 3 ML AMPUL.NEB IH SCH (07:27)
[2022-03-14] MEDS: cefTRIAXone/NS 2 GM/100 ML 2 GM/100 ML BAG IV SCH (09:56)
[2022-03-14] MEDS: INSULIN LISPRO 100 UNIT/ML SUB-Q SCH ×4 (09:57→21:55)
[2022-03-14] MEDS: SPIRONOLACTONE 50 MG TAB PO SCH (09:57)
[2022-03-14] MEDS: FAMOTIDINE 20 MG/2 ML INJ IV SCH ×2 (09:57→21:56)
[2022-03-14] MEDS: SENNOSIDES/DOCUSATE SODIUM 8.6/50 MG TAB FEEDTUBE SCH ×2 (09:58→21:56)
[2022-03-14] MEDS ORDERED: ALBUTEROL 2.5 MG/3 ML NEBU IH PRN ×2 (10:00)
--- NOTE | 2022-03-14 11:07 | XRay Report ---
XR chest 1V ap INDICATION / CLINICAL INFORMATION: resp distress. COMPARISON: Radiograph from yesterday. FINDINGS: SUPPORT DEVICES: Endotracheal tube projects in the midtrachea. Enteric catheter is stable, as visuali zed. HEART /PULMONARY VASCULATURE: Slight increased congestive changes. Stable cardiomegaly. LUNGS / PLEURA: Mild increase in bilateral pulmonary opacities. No pneumothorax. IMPRESSION: Slight interval worsening in congestive changes and pulmonary edema. Signer Name: Filiberto Davis MD Signed: 03/14/2022 11:03 AM Workstation Name: [id number]
--- NOTE | 2022-03-14 12:02 | Progress Note ---
Assessment and Plan 1. 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 Dilated cardiomyopathy 3. Essential hypertension 4. Respiratory failure currently intubated on the mechanical ventilator 5. Morbid obesity 6. Type 2 diabetes mellitus Plan. Patient's is hemodynamically stable and rhythm is sinus. Currently in a negative fluid balance we will continue diuresing patient to be weaned off of mechanical ventilator as per pulmonary management. Echocardiogram pending. Subjective Date of service: 03/14/22 Principal diagnosis: Acute resp failure with hypoxia and hypercarbia Interval history: Intubated on mechanical ventilator Objective Vital Signs Temp Pulse Pulse Pulse Pulse Resp Resp 03/14/22 11:38 66 03/14/22 10:30 88 21 03/14/22 10:16 67 30 H 03/14/22 10:00 66 30 H 03/14/22 09:57 64 03/14/22 09:46 67 29 H 03/14/22 09:30 72 19 03/14/22 09:16 67 30 H 03/14/22 09:00 65 30 H 03/14/22 08:46 76 20 03/14/22 08:30 67 30 H 03/14/22 08:16 63 26 H 03/14/22 08:00 68 30 H 03/14/22 07:46 66 30 H 03/14/22 07:30 64 30 H 03/14/22 07:27 67 66 30 H 03/14/22 07:16 66 30 H 03/14/22 07:00 70 30 H 03/14/22 06:46 67 30 H 03/14/22 06:30 70 20 03/14/22 06:27 68 03/14/22 06:16 69 30 H 03/14/22 06:00 69 30 H 03/14/22 05:46 68 30 H 03/14/22 05:30 71 27 H 03/14/22 05:16 122 H 30 H 03/14/22 05:00 70 30 H 03/14/22 04:46 71 30 H 03/14/22 04:30 68 30 H 03/14/22 04:16 69 30 H 03/14/22 04:00 69 73 30 H 03/14/22 03:46 72 30 H 03/14/22 03:34 71 03/14/22 03:30 69 30 H 03/14/22 03:18 99.3 F 03/14/22 03:16 71 30 H 03/14/22 03:00 71 30 H 03/14/22 02:46 71 30 H 03/14/22 02:30 74 30 H 03/14/22 02:16 74 30 H 03/14/22 02:00 77 30 H 03/14/22 01:46 76 30 H 03/14/22 01:30 85 30 H 03/14/22 01:16 85 25 H 03/14/22 01:00 78 30 H 03/14/22 00:46 77 30 H 03/14/22 00:30 77 30 H 03/14/22 00:16 77 30 H 03/14/22 00:00 99.3 F 75 73 30 H 03/13/22 23:46 79 30 H 03/13/22 23:30 79 30 H 03/13/22 23:22 78 03/13/22 23:16 74 30 H 03/13/22 23:11 75 30 H 03/13/22 23:00 78 29 H 03/13/22 22:46 74 30 H 03/13/22 22:30 73 30 H 03/13/22 22:16 71 26 H 03/13/22 22:00 75 30 H 03/13/22 21:46 70 30 H 03/13/22 21:30 75 30 H 03/13/22 21:16 75 30 H 03/13/22 21:00 77 30 H 03/13/22 20:46 71 30 H 03/13/22 20:30 75 30 H 03/13/22 20:16 77 31 H 03/13/22 20:00 77 73 26 H 03/13/22 19:54 79 74 30 H 03/13/22 19:53 98.6 F 03/13/22 19:46 74 22 03/13/22 19:30 72 30 H 03/13/22 19:16 69 30 H 03/13/22 19:00 67 30 H 03/13/22 18:46 70 30 H 03/13/22 18:41 69 30 H 03/13/22 18:00 98.2 F 30 H 03/13/22 17:56 70 03/13/22 17:36 66 03/13/22 17:31 97.9 F 05/29/22 17:30 69 30 H 03/13/22 17:05 66 03/13/22 17:00 65 30 H 03/13/22 16:30 66 28 H 03/13/22 16:08 64 30 H 03/13/22 16:00 03/13/22 15:30 65 18 03/13/22 15:20 64 03/13/22 15:00 69 29 H 03/13/22 14:30 65 29 H 03/13/22 13:10 71 03/13/22 13:00 72 19 03/13/22 12:50 74 15 03/13/22 12:40 75 29 H 03/13/22 12:32 76 24 03/13/22 12:21 03/13/22 12:20 68 03/13/22 12:00 68 24 BP Pulse Ox 03/14/22 11:38 139/74 96 03/14/22 10:30 143/89 94 03/14/22 10:16 143/89 92 03/14/22 10:00 123/75 86 03/14/22 09:57 134/71 03/14/22 09:46 134/71 95 03/14/22 09:30 133/70 96 03/14/22 09:16 133/70 92 03/14/22 09:00 131/67 96 03/14/22 08:46 141/79 96 03/14/22 08:30 141/79 88 03/14/22 08:16 142/77 94 03/14/22 08:00 137/74 95 03/14/22 07:46 137/74 93 03/14/22 07:30 124/70 96 03/14/22 07:27 137/74 96 03/14/22 07:16 124/70 94 03/14/22 07:00 115/73 93 03/14/22 06:46 121/65 93 03/14/22 06:30 130/60 87 03/14/22 06:27 126/71 03/14/22 06:16 126/71 95 03/14/22 06:00 123/68 97 03/14/22 05:46 123/68 95 03/14/22 05:30 121/78 96 03/14/22 05:16 121/78 93 03/14/22 05:00 130/68 90 03/14/22 04:46 127/74 92 03/14/22 04:30 128/64 89 03/14/22 04:16 127/66 94 03/14/22 04:00 129/65 88 03/14/22 03:46 123/63 97 03/14/22 03:34 123/63 97 03/14/22 03:30 123/63 94 03/14/22 03:18 03/14/22 03:16 104/68 93 03/14/22 03:00 113/68 92 03/14/22 02:46 106/61 94 03/14/22 02:30 120/59 92 03/14/22 02:16 112/55 96 03/14/22 02:00 116/60 92 03/14/22 01:46 115/51 95 03/14/22 01:30 119/56 92 03/14/22 01:16 124/62 93 03/14/22 01:00 136/70 88 03/14/22 00:46 138/72 94 03/14/22 00:30 140/83 94 03/14/22 00:16 136/80 91 03/14/22 00:00 133/72 88 03/13/22 23:46 135/72 96 03/13/22 23:30 138/79 86 03/13/22 23:22 138/79 97 03/13/22 23:16 137/74 97 03/13/22 23:11 146/69 97 03/13/22 23:00 146/69 90 03/13/22 22:46 139/77 93 03/13/22 22:30 141/81 90 03/13/22 22:16 143/87 93 03/13/22 22:00 151/89 90 03/13/22 21:46 145/76 95 05 21:30 144/78 91 03/13/22 21:16 148/80 97 03/13/22 21:00 143/74 94 03/13/22 20:46 141/83 94 03/13/22 20:30 137/76 92 03/13/22 20:16 153/98 91 05 20:00 164/96 94 03/13/22 19:54 164/96 97 03/13/22 19:53 03/13/22 19:46 166/103 98 05/29/22 19:30 166/103 92 03/13/22 19:16 154/91 98 03/13/22 19:00 154/91 93 03/13/22 18:46 155/97 94 03/13/22 18:41 98 03/13/22 18:00 159/97 99 03/13/22 17:56 153/97 03/13/22 17:36 03/13/22 17:31 03/13/22 17:30 162/94 97 03/13/22 17:05 165/98 03/13/22 17:00 169/101 97 03/13/22 16:30 168/92 95 03/13/22 16:08 03/13/22 16:00 164/97 96 03/13/22 15:30 153/92 99 03/13/22 15:20 153/92 03/13/22 15:00 124/89 97 03/13/22 14:30 148/82 100 03/13/22 13:10 127/78 98 03/13/22 13:00 153/65 95 03/13/22 12:50 138/63 93 03/13/22 12:40 153/65 96 03/13/22 12:32 162/108 03/13/22 12:21 162/108 78 L 03/13/22 12:20 158/102 100 03/13/22 12:00 158/102 93 - Physical Examination General: Other (intubated and sedated,Morbidly obese) HEENT: Positive: PERRL, Normocephaly, Mucus Membranes Moist. Negative: Jaundice Neck: Positive: neck supple, trachea midline. Negative: JVD/HJR Cardiac: Positive: Regular Rate, S1/S2, PMI, Dilated, Laterally Displaced Lungs: Positive: clear to auscultation, No Wheeze, Rales, Rhonchi Neuro: Positive: No Lateralizing Findings, Other (Intubatd and sedated) Abdomen: Positive: Soft, Active Bowel Sounds Extremities: Present: edema, Other (peripheral ulcer left leg, hyperpigmentation both lower legs with vascular skin changes) - Labs and Meds CBC 03/14/22 Range/Units Unknown WBC 6.6 (4.5-11.0) K/mm3 RBC 4.55 (3.65-5.03) M/mm3 Hgb 11.2 L (11.8-15.2) gm/dl Hct 35.7 (35.5-45.6) % Plt Count 181 (140-440) K/mm3 Comprehensive Metabolic Panel 03/14/22 Range/Units 02:50 Sodium 139 (137-145) mmol/L Potassium 4.0 (3.6-5.0) mmol/L Chloride 97.2 L (98-107) mmol/L Carbon Dioxide 30 (22-30) mmol/L BUN 23 H (9-20) mg/dL Creatinine 1.1 (0.8-1.3) mg/dL Glucose 132 H (75-100) mg/dL Calcium 7.6 L (8.4-10.2) mg/dL
--- NOTE | 2022-03-14 12:25 | Progress Note ---
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 Daily SBT -Fentanyl infusion for pain management- ordered but not started. Patient states he feels comfortable -Continue diuresis while monitoring renal function, hemodynamics and electrolyte profile -Replete electrolytes as clinically indicated -Empiric antibiotics therapy for CAP-await procalcitonin levels. If normal, discontinue antibiotics -Accuchecks with glycemic control. target blood glucose 140-180 mg/dL. Avoid hypoglycemia -VTE prophylaxis- Heparin -Avoid nephrotoxins and renally dose all medications -Stress ulcer prophylaxis- famotidine -Mobility, frequent turning, off loading per facility protocol to prevent pre ssure ulcers - Strict I&Os and Daily weights -Heart failure measures -Maintain sleep wake cycle, avoid benzodiazepines. -Limit delirium Will need aggressive weight loss management, dietary and life style modifications Sleep study as outpatient, evaluation for surgical bariatric intervention CONDITION:CRITICAL PROGNOSIS: GUARDED CODE STATUS; FULL CODE The high probability of a clinically significant, sudden or life threatening deterioration of the respiratory, cardiovascular, neurology system required my full and direct attention, intervention and personal management. The aggregate critical care time was [35] minutes. 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 No adverse overnight events reported. Discussed with nursing and respiratory staff. remains orally intubated FIO2 70% PEEP 8 No reported fevers, no diarrhea, no emesis Objective Vital Signs - 12hr 03/14/22 03/14/22 03/14/22 00:30 00:46 01:00 Temperature Pulse Rate 77 77 78 Pulse Rate [ Anterior Bilateral] Pulse Rate [ From Monitor] Respiratory 30 H 30 H 30 H Rate Respiratory Rate [Anterior Bilateral] Blood Pressure 140/83 138/72 136/70 O2 Sat by Pulse 94 94 88 Oximetry 03/14/22 03/14/22 03/14/22 01:16 01:30 01:46 Temperature Pulse Rate 85 85 76 Pulse Rate [ Anterior Bilateral] Pulse Rate [ From Monitor] Respiratory 25 H 30 H 30 H Rate Respiratory Rate [Anterior Bilateral] Blood Pressure 124/62 119/56 115/51 O2 Sat by Pulse 93 92 95 Oximetry 03/14/22 03/14/22 03/14/22 02:00 02:16 02:30 Temperature Pulse Rate 77 74 74 Pulse Rate [ Anterior Bilateral] Pulse Rate [ From Monitor] Respiratory 30 H 30 H 30 H Rate Respiratory Rate [Anterior Bilateral] Blood Pressure 116/60 112/55 120/59 O2 Sat by Pulse 92 96 92 Oximetry 03/14/22 03/14/22 03/14/22 02:46 03:00 03:16 Temperature Pulse Rate 71 71 71 Pulse Rate [ Anterior Bilateral] Pulse Rate [ From Monitor] Respiratory 30 H 30 H 30 H Rate Respiratory Rate [Anterior Bilateral] Blood Pressure 106/61 113/68 104/68 O2 Sat by Pulse 94 92 93 Oximetry 03/14/22 03/14/22 03/14/22 03:18 03:30 03:34 Temperature 99.3 F Pulse Rate 69 71 Pulse Rate [ Anterior Bilateral] Pulse Rate [ From Monitor] Respiratory 30 H Rate Respiratory Rate [Anterior Bilateral] Blood Pressure 123/63 123/63 O2 Sat by Pulse 94 97 Oximetry 03/14/22 03/14/22 03/14/22 03:46 04:00 04:16 Temperature Pulse Rate 72 69 69 Pulse Rate [ Anterior Bilateral] Pulse Rate [ 73 From Monitor] Respiratory 30 H 30 H 30 H Rate Respiratory Rate [Anterior Bilateral] Blood Pressure 123/63 129/65 127/66 O2 Sat by Pulse 97 88 94 Oximetry 03/14/22 03/14/22 03/14/22 04:30 04:46 05:00 Temperature Pulse Rate 68 71 70 Pulse Rate [ Anterior Bilateral] Pulse Rate [ From Monitor] Respiratory 30 H 30 H 30 H Rate Respiratory Rate [Anterior Bilateral] Blood Pressure 128/64 127/74 130/68 O2 Sat by Pulse 89 92 90 Oximetry 03/14/22 03/14/22 03/14/22 05:16 05:30 05:46 Temperature Pulse Rate 122 H 71 68 Pulse Rate [ Anterior Bilateral] Pulse Rate [ From Monitor] Respiratory 30 H 27 H 30 H Rate Respiratory Rate [Anterior Bilateral] Blood Pressure 121/78 121/78 123/68 O2 Sat by Pulse 93 96 95 Oximetry 03/14/22 03/14/22 03/14/22 06:00 06:16 06:27 Temperature Pulse Rate 69 69 68 Pulse Rate [ Anterior Bilateral] Pulse Rate [ From Monitor] Respiratory 30 H 30 H Rate Respiratory Rate [Anterior Bilateral] Blood Pressure 123/68 126/71 126/71 O2 Sat by Pulse 97 95 Oximetry 03/14/22 03/14/22 03/14/22 06:30 06:46 07:00 Temperature Pulse Rate 70 67 70 Pulse Rate [ Anterior Bilateral] Pulse Rate [ From Monitor] Respiratory 20 30 H 30 H Rate Respiratory Rate [Anterior Bilateral] Blood Pressure 130/60 121/65 115/73 O2 Sat by Pulse 87 93 93 Oximetry 03/14/22 03/14/22 03/14/22 07:16 07:27 07:30 Temperature Pulse Rate 66 67 64 Pulse Rate [ 66 Anterior Bilateral] Pulse Rate [ From Monitor] Respiratory 30 H 30 H Rate Respiratory 30 H Rate [Anterior Bilateral] Blood Pressure 124/70 137/74 124/70 O2 Sat by Pulse 94 96 96 Oximetry 03/14/22 03/14/22 03/14/22 07:46 08:00 08:16 Temperature Pulse Rate 66 68 63 Pulse Rate [ Anterior Bilateral] Pulse Rate [ From Monitor] Respiratory 30 H 30 H 26 H Rate Respiratory Rate [Anterior Bilateral] Blood Pressure 137/74 137/74 142/77 O2 Sat by Pulse 93 95 94 Oximetry 03/14/22 03/14/22 03/14/22 08:30 08:46 09:00 Temperature Pulse Rate 67 76 65 Pulse Rate [ Anterior Bilateral] Pulse Rate [ From Monitor] Respiratory 30 H 20 30 H Rate Respiratory Rate [Anterior Bilateral] Blood Pressure 141/79 141/79 131/67 O2 Sat by Pulse 88 96 96 Oximetry 03/14/22 03/14/22 03/14/22 09:16 09:30 09:46 Temperature Pulse Rate 67 72 67 Pulse Rate [ Anterior Bilateral] Pulse Rate [ From Monitor] Respiratory 30 H 19 29 H Rate Respiratory Rate [Anterior Bilateral] Blood Pressure 133/70 133/70 134/71 O2 Sat by Pulse 92 96 95 Oximetry 03/14/22 03/14/22 03/14/22 09:57 10:00 10:16 Temperature Pulse Rate 64 66 67 Pulse Rate [ Anterior Bilateral] Pulse Rate [ From Monitor] Respiratory 30 H 30 H Rate Respiratory Rate [Anterior Bilateral] Blood Pressure 134/71 123/75 143/89 O2 Sat by Pulse 86 92 Oximetry 03/14/22 03/14/22 10:30 11:38 Temperature Pulse Rate 88 66 Pulse Rate [ Anterior Bilateral] Pulse Rate [ From Monitor] Respiratory 21 Rate Respiratory Rate [Anterior Bilateral] Blood Pressure 143/89 139/74 O2 Sat by Pulse 94 96 Oximetry Constitutional: no acute distress, alert, other (atruamatic, normocephalic, large neck, orally intuabted) Eyes: non-icteric ENT: other (ETT at ) Neck: supple, no lymphadenopathy, other (short large neck, tracheostomy scar) Effort: mildly labored Ascultation: Bilateral: diminished breath sounds, rhonchi Cardiovascular: regular rate and rhythm, other (S1,S2) Gastrointestinal: normoactive bowel sounds, soft, non-tender, non-distended Extremities: no cyanosis, edema (3+, scrotal edema, anterior abdominal wall gena a), other Neurologic: normal mental status, non-focal exam (grossly), pupils equal and round, motor strength normal and Psychiatric: mood appropriate, affect normal CBC and BMP: 03/16/22 08:04 03/16/22 08:04 ABG, PT/INR, D-dimer: ABG ABG pH 7.478 pH Units (7.350-7.450) H 03/14/22 05:24 ABG pCO2 46.1 mm Hg 03/14/22 05:24 ABG pO2 76.2 mm Hg (80.0-90.0) L 03/14/22 05:24 ABG O2 Saturation 96.9 % (95.0-99.0) 03/14/22 05:24 Abnormal lab findings: Abnormal Labs 03/13/22 03/13/22 03/13/22 02:30 02:30 07:50 Hgb 11.0 L MCV 80 L MCH 25 L MCHC 31 L RDW 21.0 H [place] % (Auto) 10.1 H Seg Neuts % (Manual) Lymphocytes % (Manual) Lymphocytes # (Manual) ABG pH 7.001 L* ABG pO2 90.8 H ABG HCO3 41.7 H ABG O2 Saturation 90.4 L ABG Base Excess 5.7 H ABG Hemoglobin 12.1 L Oxyhemoglobin 87.7 L Chloride Carbon Dioxide 33 H BUN 23 H Glucose POC Glucose Calcium 8.1 L NT-Pro-B Natriuret Pep 4736 H Albumin 3.5 L Lipase 12 L 03/13/22 03/13/22 03/14/22 11:10 21:52 02:50 Hgb MCV MCH MCHC RDW [place] % (Auto) Seg Neuts % (Manual) Lymphocytes % (Manual) Lymphocytes # (Manual) ABG pH ABG pO2 56.8 L ABG HCO3 35.2 H ABG O2 Saturation 93.6 L ABG Base Excess 9.6 H ABG Hemoglobin 12.1 L Oxyhemoglobin 91.0 L Chloride 97.2 L Carbon Dioxide BUN 23 H Glucose 132 H POC Glucose 107 H Calcium 7.6 L NT-Pro-B Natriuret Pep Albumin Lipase 03/14/22 03/14/22 03/14/22 05:24 09:54 Unknown Hgb 11.2 L MCV 78 L MCH 25 L MCHC 31 L RDW 20.8 H [place] % (Auto) Seg Neuts % (Manual) 89.0 H Lymphocytes % (Manual) 4.0 L Lymphocytes # (Manual) 0.3 L ABG pH 7.478 H ABG pO2 76.2 L ABG HCO3 33.5 H ABG O2 Saturation ABG Base Excess 8.9 H ABG Hemoglobin 11.4 L Oxyhemoglobin 94.8 L Chloride Carbon Dioxide BUN Glucose POC Glucose 145 H Calcium NT-Pro-B Natriuret Pep Albumin Lipase Chest x-ray: image reviewed (Pulmonary edema) Allied health notes reviewed: RT
[2022-03-14] MEDS: AZITHROMYCIN/NS 500 MG/250 ML 500 MG/250 ML BAG IV SCH (12:42)
--- NOTE | 2022-03-14 14:25 | Progress Note ---
<EDGARSUZAN HKolby - Last Filed: 03/14/22 14:23> Assessment and Plan Assessment and plan: This is a 56-year-old male with CHF, DM, HTN, morbid obesity admitted with acute hypercarbic respiratory failure, acute decompensated chronic combined systolic and diastolic heart failure Neuro: NAD -As needed fentanyl -Precedex gtt -Avoid delirium -Reorientation as needed -Maintain sleep-wake cycle -As needed analgesia Cardiac: Acute decompensated chronic combined systolic and diastolic heart failure, h/o HTN -Cardiology consulted, appreciate recommendations -Blood pressure monitoring per protocol -Echocardiogram pending -Diuresis with Lasix and Aldactone -proBNP 4736 Respiratory: Acute hypercapnic and hypoxic respiratory failure, ? OHS versus AGUS -CCM consulted, appreciate recommendations -Intubated 03/13 wtih 7.5 OETT at 24 cm at lip -A.m. vent settings: Assist-control/PRVC tidal volume 500, rate 30, PEEP 10, FiO2 70% -See RT notes for titration -A.m. ABG and CXR noted -VAP bundle -SPO2 monitoring GI: Morbid obesity -24 hours -2024 mL -PPI -NTR consulted for tube feedings -BR: Senokat -CT abdomen/pelvis with contrast showed no acute findings, moderate cardiomegaly, diverticulosis without acute inflammation, degenerative changes of the lumbar spine present with straightening of lordosis and moderate loss of intervertebral disc space at L4-5 and L5 -S1, vacuum disc phenomenon present : NAD -Nephrology consulted, appreciate recommendations -Strict intake and output -Renally dose medications -Avoid nephrotoxic medications -Daily weights -Trend BMP ID: ? CAP, lower extremity cellulites -Infectious disease consulted, appreciate recommendation -Antibiotic therapy with azithromycin and Rocephin -x/x precautions -f/u blood culture -Monitor WBC and temperature curve Endo: h/o DM -Avoid hypoglycemia -SSI -Accu-Cheks q. 6hr Heme: NAD -Trend CBC -heparin subq -Transfuse hemoglobin less than 7 -Monitor for signs of bleeding -SCDs to BLE while in bed The high probability of a clinically significant, sudden or life threatening deterioration of the [resp/cardio] system(s) required my full and direct attention, intervention and personal management. The aggregate critical care time was [60] minutes. This time is in addition to time spent performing reported procedures but includes the following: [x] Data Review and interpretation [x] Patient assessment and monitoring of vital signs [x] Documentation [x] Medication orders and management Disposition Plan: icu Total Time Spent with Patient (Minutes): 60 History Interval history: This is a 56-year-old male with CHF, DM, HTN, MO presents to the emergency department on 03/13 with complaints of diffuse abdominal pain which started earlier in the day with nausea and intermittent shortness of breath on exertion. In the emergency department patient had an episode of respiratory distress and became hypoxic and was placed on nonrebreather with improvement his oxygen saturations. Work-up in the emergency department included a CXR which showed mi ld pulmonary vascular congestion and cardiomegaly and lab work significant for elevated creatinine of 1.1. Patient was admitted to the hospitalist service with consults to cardiology. While in the emergency department patient's respiratory distress progressed to acute hypercarbic respiratory failure with decompensated respiratory acidosis while on BiPAP and patient became unresponsive and had to be intubated in the emergency department. [facility] was sent consulted and patient transferred to ICU. Hospital course to date: 03/14: Patient remains intubated with FiO2 of 70%, CXR shows cardiomegaly with pulmonary edema. We will continue antibiotics until procalcitonin results. Continue diuresis. Wean respiratory support as tolerated. Fentanyl as needed as needed. Patient has sedated however states that he is comfortable. Hospitalist Physical - Constitutional Vitals: Temp Pulse Resp BP Pulse Ox 99.3 F 62 30 H 143/79 94 03/14/22 03:18 03/14/22 12:42 03/14/22 12:16 03/14/22 12:42 03/14/22 12:16 General appearance: Present: no acute distress, well-nourished, obese - EENT Eyes: Present: PERRL, EOM intact ENT: hearing intact, clear oral mucosa, dentition normal - Neck Neck: Present: normal ROM - Respiratory Respiratory effort: normal Respiratory: bilateral: CTA, diminished - Cardiovascular Rhythm: regular Heart Sounds: Present: S1 & S2. Absent: systolic murmur, diastolic murmur - Extremities Extremities: no ischemia, pulses intact, pulses symmetrical, No edema, normal temperature, normal color Peripheral Pulses: within normal limits - Abdominal General gastrointestinal: soft, non-tender, non-distended, normal bowel sounds - Integumentary Integumentary: Present: warm, dry - Psychiatric Psychiatric: appropriate mood/affect, cooperative - Neurologic Neurologic: CNII-XII intact, no focal deficits, moves all extremities - Allied Health Allied health notes reviewed: nursing, RT, social work Results - Labs CBC & Chem 7: 03/14/22 Unknown 03/14/22 02:50 Labs: Laboratory Last Values WBC 6.6 K/mm3 (4.5-11.0) 03/14/22 Unknown RBC 4.55 M/mm3 (3.65-5.03) 03/14/22 Unknown Hgb 11.2 gm/dl (11.8-15.2) L 03/14/22 Unknown Hct 35.7 % (35.5-45.6) 03/14/22 Unknown MCV 78 fl (84-94) L 03/14/22 Unknown MCH 25 pg (28-32) L 03/14/22 Unknown MCHC 31 % (32-34) L 03/14/22 Unknown RDW 20.8 % (13.2-15.2) H 03/14/22 Unknown Plt Count 181 K/mm3 (140-440) 03/14/22 Unknown Lymph % (Auto) 24.4 % (13.4-35.0) 03/13/22 02:30 [place] % (Auto) 10.1 % (0.0-7.3) H 03/13/22 02:30 Eos % (Auto) 1.5 % (0.0-4.3) 03/13/22 02:30 Baso % (Auto) 0.4 % (0.0-1.8) 03/13/22 02:30 Lymph # (Auto) 1.6 K/mm3 (1.2-5.4) 03/13/22 02:30 [place] # (Auto) 0.7 K/mm3 (0.0-0.8) 03/13/22 02:30 Eos # (Auto) 0.1 K/mm3 (0.0-0.4) 03/13/22 02:30 Baso # (Auto) 0.0 K/mm3 (0.0-0.1) 03/13/22 02:30 Add Manual Diff Complete 03/14/22 Unknown Total Counted 100 03/14/22 Unknown Seg Neutrophils % Snowmaker 03/14/22 Unknown Seg Neuts % (Manual) 89.0 % (40.0-70.0) H 03/14/22 Unknown Band Neutrophils % 3.0 % 03/14/22 Unknown Lymphocytes % (Manual) 4.0 % (13.4-35.0) L 03/14/22 Unknown Reactive Lymphs % (Man) 0 % 03/14/22 Unknown Monocytes % (Manual) 3.0 % (0.0-7.3) 03/14/22 Unknown Eosinophils % (Manual) 1.0 % (0.0-4.3) 03/14/22 Unknown Basophils % (Manual) 0 % (0.0-1.8) 03/14/22 Unknown Metamyelocytes % 0 % 03/14/22 Unknown Myelocytes % 0 % 03/14/22 Unknown Promyelocytes % 0 % 03/14/22 Unknown Blast Cells % 0 % 03/14/22 Unknown Nucleated RBC % Not Reportable 03/14/22 Unknown Seg Neutrophils # 4.3 K/mm3 (1.8-7.7) 03/13/22 02:30 Seg Neutrophils # Man 5.9 K/mm3 (1.8-7.7) 03/14/22 Unknown Band Neutrophils # 0.2 K/mm3 03/14/22 Unknown Lymphocytes # (Manual) 0.3 K/mm3 (1.2-5.4) L 03/14/22 Unknown Abs React Lymphs (Man) 0.0 K/mm3 03/14/22 Unknown Monocytes # (Manual) 0.2 K/mm3 (0.0-0.8) 03/14/22 Unknown Eosinophils # (Manual) 0.1 K/mm3 (0.0-0.4) 03/14/22 Unknown Basophils # (Manual) 0.0 K/mm3 (0.0-0.1) 03/14/22 Unknown Metamyelocytes # 0.0 K/mm3 03/14/22 Unknown Myelocytes # 0.0 K/mm3 03/14/22 Unknown Promyelocytes # 0.0 K/mm3 03/14/22 Unknown Blast Cells # 0.0 K/mm3 03/14/22 Unknown WBC Morphology Not Reportable 03/14/22 Unknown Hypersegmented Neuts Not Reportable 03/14/22 Unknown Hyposegmented Neuts Not Reportable 03/14/22 Unknown Hypogranular Neuts Not Reportable 03/14/22 Unknown Smudge Cells Not Reportable 03/14/22 Unknown Toxic Granulation Not Reportable 03/14/22 Unknown Toxic Vacuolation Not Reportable 03/14/22 Unknown Dohle Bodies Not Reportable 03/14/22 Unknown Pelger-Huet Anomaly Not Reportable 03/14/22 Unknown Jill Rods Not Reportable 03/14/22 Unknown Platelet Estimate Consistent w auto 03/14/22 Unknown Clumped Platelets Not Reportable 03/14/22 Unknown Plt Clumps, EDTA Not Reportable 03/14/22 Unknown Large Platelets Not Reportable 03/14/22 Unknown Giant Platelets Not Reportable 03/14/22 Unknown Platelet Satelliting Not Reportable 03/14/22 Unknown Plt Morphology Comment Not Reportable 03/14/22 Unknown RBC Morphology Not Reportable 03/14/22 Unknown Dimorphic RBCs Not Reportable 03/14/22 Unknown Polychromasia Not Reportable 03/14/22 Unknown Hypochromasia Not Reportable 03/14/22 Unknown Poikilocytosis Not Reportable 03/14/22 Unknown Anisocytosis Not Reportable 03/14/22 Unknown Microcytosis Few 03/14/22 Unknown Macrocytosis Not Reportable 03/14/22 Unknown Spherocytes Not Reportable 03/14/22 Unknown Pappenheimer Bodies Not Reportable 03/14/22 Unknown Sickle Cells Not Reportable 03/14/22 Unknown Target Cells Not Reportable 03/14/22 Unknown Tear Drop Cells Not Reportable 03/14/22 Unknown Ovalocytes Not Reportable 03/14/22 Unknown Helmet Cells Not Reportable 03/14/22 Unknown Rgullon-Newhope Bodies Not Reportable 03/14/22 Unknown [place] Rings Not Reportable 03/14/22 Unknown [place] Cells Not Reportable 03/14/22 Unknown Bite Cells Not Reportable 03/14/22 Unknown Crenated Cell Not Reportable 03/14/22 Unknown Elliptocytes Not Reportable 03/14/22 Unknown Acanthocytes (Spur) Not Reportable 03/14/22 Unknown Rouleaux Not Reportable 03/14/22 Unknown Hemoglobin C Crystals Not Reportable 03/14/22 Unknown Schistocytes Not Reportable 03/14/22 Unknown Malaria parasites Not Reportable 03/14/22 Unknown Martell Bodies Not Reportable 03/14/22 Unknown Hem Pathologist Commnt No 03/14/22 Unknown ABG pH 7.478 pH Units (7.350-7.450) H 03/14/22 05:24 ABG pCO2 46.1 mm Hg 03/14/22 05:24 ABG pO2 76.2 mm Hg (80.0-90.0) L 03/14/22 05:24 ABG HCO3 33.5 mmol/L (20.0-26.0) H 03/14/22 05:24 ABG O2 Saturation 96.9 % (95.0-99.0) 03/14/22 05:24 ABG O2 Content 15.3 (0.0-44) 03/14/22 05:24 ABG Base Excess 8.9 mmol/L (-2.0-3.0) H 03/14/22 05:24 ABG Hemoglobin 11.4 gm/dl (14.0-18.0) L 03/14/22 05:24 ABG Carboxyhemoglobin 1.6 % (0.0-5.0) 03/14/22 05:24 ABG Methemoglobin 0.6 % (0.0-1.5) 03/14/22 05:24 Oxyhemoglobin 94.8 % (95.0-99.0) L 03/14/22 05:24 FiO2 70 % 03/14/22 05:24 Sodium 139 mmol/L (137-145) 03/14/22 02:50 Potassium 4.0 mmol/L (3.6-5.0) 03/14/22 02:50 Chloride 97.2 mmol/L (98-107) L 03/14/22 02:50 Carbon Dioxide 30 mmol/L (22-30) 03/14/22 02:50 Anion Gap 19 mmol/L 03/14/22 02:50 BUN 23 mg/dL (9-20) H 03/14/22 02:50 Creatinine 1.1 mg/dL (0.8-1.3) 03/14/22 02:50 Estimated GFR > 60 ml/min 03/14/22 02:50 BUN/Creatinine Ratio 21 % 03/14/22 02:50 Glucose 132 mg/dL (75-100) H 03/14/22 02:50 POC Glucose 145 mg/dL (70-105) H 03/14/22 09:54 Calcium 7.6 mg/dL (8.4-10.2) L 03/14/22 02:50 Total Bilirubin 0.50 mg/dL (0.1-1.2) 03/13/22 02:30 AST 13 units/L (5-40) 03/13/22 02:30 ALT 13 units/L (7-56) 03/13/22 02:30 Alkaline Phosphatase 73 units/L (35-129) 03/13/22 02:30 NT-Pro-B Natriuret Pep 4736 pg/mL (0-900) H 03/13/22 02:30 Total Protein 7.5 g/dL (6.3-8.2) 03/13/22 02:30 Albumin 3.5 g/dL (3.9-5) L 03/13/22 02:30 Albumin/Globulin Ratio 0.9 % 03/13/22 02:30 Lipase 12 units/L (13-60) L 03/13/22 02:30 Urine Color Yellow (Yellow) 03/13/22 07:20 Urine Turbidity Clear (Clear) 03/13/22 07:20 Urine pH 5.0 (5.0-7.0) 03/13/22 07:20 Ur Specific [place] 1.012 (1.003-1.030) 03/13/22 07:20 Urine Protein 30 mg/dl mg/dL (Negative) 03/13/22 07:20 Urine Glucose (UA) Neg mg/dL (Negative) 03/13/22 07:20 Urine Ketones Neg mg/dL (Negative) 03/13/22 07:20 Urine Blood Neg (Negative) 03/13/22 07:20 Urine Nitrite Neg (Negative) 03/13/22 07:20 Urine Bilirubin Neg (Negative) 03/13/22 07:20 Urine Urobilinogen < 2.0 mg/dL (<2.0) 03/13/22 07:20 Ur Leukocyte Esterase Neg (Negative) 03/13/22 07:20 Urine WBC (Auto) < 1.0 /HPF (0.0-6.0) 03/13/22 07:20 Urine RBC (Auto) < 1.0 /HPF (0.0-6.0) 03/13/22 07:20 Urine Bacteria (Auto) 1+ /HPF (Negative) 03/13/22 07:20 Hyaline Casts 1 /LPF 03/13/22 07:20 Urine Mucus Few /HPF 03/13/22 07:20 Microbiology: Microbiology 03/13/22 20:08 Tracheal Aspirate Sputum Culture - Preliminary [place]/IV: Voiding Method Indwelling Catheter Active Medications - Current Medications Current Medications: Generic Name Dose Route Start Last Admin Trade Name Freq PRN Reason Stop Dose Admin Acetaminophen 650 mg 03/13/22 05:48 Acetaminophen 325 Mg Tab PO Q4H PRN Pain MILD(1-3)/Fever >100.5/DEJESUS Albuterol 2.5 mg 03/14/22 10:00 Albuterol 2.5 Mg/3 Ml Nebu IH Q3H PRN Wheezing Dextrose 0 ml 03/13/22 05:48 Dextrose 50% In Water (25gm) 50 Ml Syringe IV Q30MIN PRN Hypoglycemia Protocol Famotidine 20 mg 03/13/22 22:00 03/14/22 09:57 Famotidine 20 Mg/2 Ml Inj IV 20 mg BID GERRI Administration Furosemide 40 mg 03/13/22 18:00 03/14/22 06:27 Furosemide 40 Mg/4 Ml Inj IV 40 mg 0600,1800 GERRI Administration Heparin Sodium (Porcine) 5,000 unit 03/13/22 08:00 03/14/22 09:00 Heparin 5,000 Unit/1 Ml Vial SUB-Q 5,000 unit Q8H EGRRI Administration Hydralazine HCl 10 mg 03/13/22 16:56 03/13/22 17:05 Hydralazine 20 Mg/1 Ml Inj IV 10 mg Q3H PRN Administration Hypertension Hydrophilic Ointment 1 applic 03/13/22 19:33 Lip Therapy Vaseline TP Q2HR PRN Dry Lips Azithromycin 500 mg in 250 mls @ 250 mls/hr 03/13/22 12:00 03/14/22 12:42 Zithromax/Ns IV 250 mls/hr Q24H GERRI Administration Ceftriaxone Sodium 2 gm in 100 mls @ 200 mls/hr 03/13/22 11:00 03/14/22 09:56 Rocephin/Ns 2 Gm/100 Ml IV 200 mls/hr Q24HR GERRI Administration Protocol Dexmedetomidine HCl 200 mcg/ 50 mls @ 9.942 mls/hr 03/13/22 20:00 Sodium Chloride IV TITRATE [facility] Protocol 0.2 MCG/KG/HR Insulin Human Lispro 0 unit 03/13/22 07:30 03/14/22 12:30 Insulin Lispro 100 Unit/Ml SUB-Q Not Given ACHS [facility] Protocol Magnesium Hydroxide 30 ml 03/13/22 05:48 Magnesium Hydroxide (Mom) Oral Liqd Udc PO Q4H PRN Constipation Morphine Sulfate 2 mg 03/13/22 05:48 Morphine 2 Mg/1 Ml Inj IV Q4H PRN Pain, Moderate (4-6) Morphine Sulfate 4 mg 03/13/22 05:48 03/14/22 01:15 Morphine 4 Mg/1 Ml Inj IV 4 mg Q4H PRN Administration Pain , Severe (7-10) Multi-Ingred Cream/Lotion/Oil/Oint 1 applic 03/13/22 19:33 Mineral Oil/Petrolatum, White Ophth Oint 3.5 Gm OU Q4HR PRN Dry Eye(s) Nitroglycerin 1 inch 03/13/22 13:00 03/14/22 12:42 Nitroglycerin 2% Oint 1 Gm TP 1 inch [facility]G [facility] Administration Protocol Ondansetron HCl 4 mg 03/13/22 05:48 Ondansetron 4 Mg/2 Ml Inj IV Q8H PRN Nausea And Vomiting Senna/Docusate Sodium 1 tab 03/13/22 22:00 03/14/22 09:58 Sennosides/Docusate Sodium 8.6/50 Mg Tab FEEDTUBE 1 tab BID GERRI Administration Sodium Chloride 10 ml 03/13/22 10:00 03/14/22 09:57 Sodium Chloride 0.9% 10 Ml Flush Syringe IV 10 ml BID GERRI Administration Sodium Chloride 10 ml 03/13/22 05:48 Sodium Chloride 0.9% 10 Ml Flush Syringe IV PRN PRN LINE FLUSH Spironolactone 50 mg 03/13/22 15:00 03/14/22 09:57 Spironolactone 50 Mg Tab PO 50 mg QDAY GERRI Administration Nutrition/Malnutrition Assess - Dietary Evaluation Nutrition/Malnutrition Findings: Nutrition Notes Start: 03/14/22 12:45 Freq: Status: Active Protocol: Document 03/14/22 12:45 MASOUD (Rec: 03/14/22 13:04 MASOUD [id number]) Nutrition Notes 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 Weight Status Morbidly Obese Subjective/Other Information RD consult for skin risk and nutritional intake assessments , and write/manage TF. <JUVE ROSADO E - Last Filed: 03/19/22 07:38> Assessment and Plan Assessment and plan: I saw and evaluated the patient. I agree with the findings and the plan of care as documented in the Nurse Practitioner's~note, with the following corrections and additions. Hospitalist Physical - Constitutional Vitals: Temp Pulse Resp BP Pulse Ox 98.6 F 68 19 127/81 97 03/19/22 04:15 03/19/22 04:49 03/19/22 04:49 03/19/22 04:49 03/19/22 04:49 Results - Labs CBC & Chem 7: 03/17/22 05:10 03/18/22 12:37 Labs: Laboratory Last Values WBC 5.0 K/mm3 (4.5-11.0) 03/17/22 05:10 RBC 5.39 M/mm3 (3.65-5.03) H 03/17/22 05:10 Hgb 12.9 gm/dl (11.8-15.2) 03/17/22 05:10 Hct 42.9 % (35.5-45.6) 03/17/22 05:10 MCV 80 fl (84-94) L 03/17/22 05:10 MCH 24 pg (28-32) L 03/17/22 05:10 MCHC 30 % (32-34) L 03/17/22 05:10 RDW 20.7 % (13.2-15.2) H 03/17/22 05:10 Plt Count 183 K/mm3 (140-440) 03/17/22 05:10 Lymph % (Auto) 24.4 % (13.4-35.0) 03/13/22 02:30 [place] % (Auto) 10.1 % (0.0-7.3) H 03/13/22 02:30 Eos % (Auto) 1.5 % (0.0-4.3) 03/13/22 02:30 Baso % (Auto) 0.4 % (0.0-1.8) 03/13/22 02:30 Lymph # (Auto) 1.6 K/mm3 (1.2-5.4) 03/13/22 02:30 [place] # (Auto) 0.7 K/mm3 (0.0-0.8) 03/13/22 02:30 Eos # (Auto) 0.1 K/mm3 (0.0-0.4) 03/13/22 02:30 Baso # (Auto) 0.0 K/mm3 (0.0-0.1) 03/13/22 02:30 Add Manual Diff Complete 03/14/22 Unknown Total Counted 100 03/14/22 Unknown Seg Neutrophils % Snowmaker 03/14/22 Unknown Seg Neuts % (Manual) 89.0 % (40.0-70.0) H 03/14/22 Unknown Band Neutrophils % 3.0 % 03/14/22 Unknown Lymphocytes % (Manual) 4.0 % (13.4-35.0) L 03/14/22 Unknown Reactive Lymphs % (Man) 0 % 03/14/22 Unknown Monocytes % (Manual) 3.0 % (0.0-7.3) 03/14/22 Unknown Eosinophils % (Manual) 1.0 % (0.0-4.3) 03/14/22 Unknown Basophils % (Manual) 0 % (0.0-1.8) 03/14/22 Unknown Metamyelocytes % 0 % 03/14/22 Unknown Myelocytes % 0 % 03/14/22 Unknown Promyelocytes % 0 % 03/14/22 Unknown Blast Cells % 0 % 03/14/22 Unknown Nucleated RBC % Not Reportable 03/14/22 Unknown Seg Neutrophils # 4.3 K/mm3 (1.8-7.7) 03/13/22 02:30 Seg Neutrophils # Man 5.9 K/mm3 (1.8-7.7) 03/14/22 Unknown Band Neutrophils # 0.2 K/mm3 03/14/22 Unknown Lymphocytes # (Manual) 0.3 K/mm3 (1.2-5.4) L 03/14/22 Unknown Abs React Lymphs (Man) 0.0 K/mm3 03/14/22 Unknown Monocytes # (Manual) 0.2 K/mm3 (0.0-0.8) 03/14/22 Unknown Eosinophils # (Manual) 0.1 K/mm3 (0.0-0.4) 03/14/22 Unknown Basophils # (Manual) 0.0 K/mm3 (0.0-0.1) 03/14/22 Unknown Metamyelocytes # 0.0 K/mm3 03/14/22 Unknown Myelocytes # 0.0 K/mm3 03/14/22 Unknown Promyelocytes # 0.0 K/mm3 03/14/22 Unknown Blast Cells # 0.0 K/mm3 03/14/22 Unknown WBC Morphology Not Reportable 03/14/22 Unknown Hypersegmented Neuts Not Reportable 03/14/22 Unknown Hyposegmented Neuts Not Reportable 03/14/22 Unknown Hypogranular Neuts Not Reportable 03/14/22 Unknown Smudge Cells Not Reportable 03/14/22 Unknown Toxic Granulation Not Reportable 03/14/22 Unknown Toxic Vacuolation Not Reportable 03/14/22 Unknown Dohle Bodies Not Reportable 03/14/22 Unknown Pelger-Huet Anomaly Not Reportable 03/14/22 Unknown Jill Rods Not Reportable 03/14/22 Unknown Platelet Estimate Consistent w auto 03/14/22 Unknown Clumped Platelets Not Reportable 03/14/22 Unknown Plt Clumps, EDTA Not Reportable 03/14/22 Unknown Large Platelets Not Reportable 03/14/22 Unknown Giant Platelets Not Reportable 03/14/22 Unknown Platelet Satelliting Not Reportable 03/14/22 Unknown Plt Morphology Comment Not Reportable 03/14/22 Unknown RBC Morphology Not Reportable 03/14/22 Unknown Dimorphic RBCs Not Reportable 03/14/22 Unknown Polychromasia Not Reportable 03/14/22 Unknown Hypochromasia Not Reportable 03/14/22 Unknown Poikilocytosis Not Reportable 03/14/22 Unknown Anisocytosis Not Reportable 03/14/22 Unknown Microcytosis Few 03/14/22 Unknown Macrocytosis Not Reportable 03/14/22 Unknown Spherocytes Not Reportable 03/14/22 Unknown Pappenheimer Bodies Not Reportable 03/14/22 Unknown Sickle Cells Not Reportable 03/14/22 Unknown Target Cells Not Reportable 03/14/22 Unknown Tear Drop Cells Not Reportable 03/14/22 Unknown Ovalocytes Not Reportable 03/14/22 Unknown Helmet Cells Not Reportable 03/14/22 Unknown Grullon-Newhope Bodies Not Reportable 03/14/22 Unknown [place] Rings Not Reportable 03/14/22 Unknown [place] Cells Not Reportable 03/14/22 Unknown Bite Cells Not Reportable 03/14/22 Unknown Crenated Cell Not Reportable 03/14/22 Unknown Elliptocytes Not Reportable 03/14/22 Unknown Acanthocytes (Spur) Not Reportable 03/14/22 Unknown Rouleaux Not Reportable 03/14/22 Unknown Hemoglobin C Crystals Not Reportable 03/14/22 Unknown Schistocytes Not Reportable 03/14/22 Unknown Malaria parasites Not Reportable 03/14/22 Unknown Martell Bodies Not Reportable 03/14/22 Unknown Hem Pathologist Commnt No 03/14/22 Unknown ABG pH 7.511 pH Units (7.350-7.450) H 03/15/22 08:32 ABG pCO2 42.7 mm Hg 03/15/22 08:32 ABG pO2 68.3 mm Hg (80.0-90.0) L 03/15/22 08:32 ABG HCO3 33.4 mmol/L (20.0-26.0) H 03/15/22 08:32 ABG O2 Saturation 95.6 % (95.0-99.0) 03/15/22 08:32 ABG O2 Content 17.5 (0.0-44) 03/15/22 08:32 ABG Base Excess 9.5 mmol/L (-2.0-3.0) H 03/15/22 08:32 ABG Hemoglobin 13.3 gm/dl (14.0-18.0) L 03/15/22 08:32 ABG Carboxyhemoglobin 1.7 % (0.0-5.0) 03/15/22 08:32 ABG Methemoglobin 0.5 % (0.0-1.5) 03/15/22 08:32 Oxyhemoglobin 93.5 % (95.0-99.0) L 03/15/22 08:32 FiO2 75 % 03/15/22 08:32 Sodium 137 mmol/L (137-145) 03/18/22 12:37 Potassium 4.2 mmol/L (3.6-5.0) 03/18/22 12:37 Chloride 94.9 mmol/L (98-107) L 03/18/22 12:37 Carbon Dioxide 33 mmol/L (22-30) H 03/18/22 12:37 Anion Gap 13 mmol/L 03/18/22 12:37 BUN 22 mg/dL (9-20) H 03/18/22 12:37 Creatinine 0.8 mg/dL (0.8-1.3) 03/18/22 12:37 Estimated GFR > 60 ml/min 03/18/22 12:37 BUN/Creatinine Ratio 28 % 03/18/22 12:37 Glucose 109 mg/dL (75-100) H 03/18/22 12:37 POC Glucose 135 mg/dL (70-105) H 03/18/22 21:41 Calcium 9.0 mg/dL (8.4-10.2) 03/18/22 12:37 Magnesium 2.10 mg/dL (1.7-2.3) 03/15/22 09:14 Total Bilirubin 0.50 mg/dL (0.1-1.2) 03/13/22 02:30 AST 13 units/L (5-40) 03/13/22 02:30 ALT 13 units/L (7-56) 03/13/22 02:30 Alkaline Phosphatase 73 units/L (35-129) 03/13/22 02:30 NT-Pro-B Natriuret Pep 4736 pg/mL (0-900) H 03/13/22 02:30 Total Protein 7.5 g/dL (6.3-8.2) 03/13/22 02:30 Albumin 3.5 g/dL (3.9-5) L 03/13/22 02:30 Albumin/Globulin Ratio 0.9 % 03/13/22 02:30 Lipase 12 units/L (13-60) L 03/13/22 02:30 Procalcitonin 1.23 ng/mL (<0.15) 03/14/22 15:39 Urine Color Yellow (Yellow) 03/13/22 07:20 Urine Turbidity Clear (Clear) 03/13/22 07:20 Urine pH 5.0 (5.0-7.0) 03/13/22 07:20 Ur Specific [place] 1.012 (1.003-1.030) 03/13/22 07:20 Urine Protein 30 mg/dl mg/dL (Negative) 03/13/22 07:20 Urine Glucose (UA) Neg mg/dL (Negative) 03/13/22 07:20 Urine Ketones Neg mg/dL (Negative) 03/13/22 07:20 Urine Blood Neg (Negative) 03/13/22 07:20 Urine Nitrite Neg (Negative) 03/13/22 07:20 Urine Bilirubin Neg (Negative) 03/13/22 07:20 Urine Urobilinogen < 2.0 mg/dL (<2.0) 03/13/22 07:20 Ur Leukocyte Esterase Neg (Negative) 03/13/22 07:20 Urine WBC (Auto) < 1.0 /HPF (0.0-6.0) 03/13/22 07:20 Urine RBC (Auto) < 1.0 /HPF (0.0-6.0) 03/13/22 07:20 Urine Bacteria (Auto) 1+ /HPF (Negative) 03/13/22 07:20 Hyaline Casts 1 /LPF 03/13/22 07:20 Urine Mucus Few /HPF 03/13/22 07:20 [place]/IV: Voiding Method Indwelling Catheter Active Medications - Current Medications Current Medications: Generic Name Dose Route Start Last Admin Trade Name Freq PRN Reason Stop Dose Admin Acetaminophen 650 mg 03/13/22 05:48 03/18/22 15:48 Acetaminophen 325 Mg Tab PO 650 mg Q4H PRN Administration Pain MILD(1-3)/Fever >100.5/DEJESUS Albuterol 2.5 mg 03/14/22 10:00 03/15/22 17:15 Albuterol 2.5 Mg/3 Ml Nebu IH 2.5 mg Q3H PRN Administration Wheezing Carvedilol 3.125 mg 03/17/22 12:00 03/18/22 22:18 Carvedilol 3.125 Mg Tab PO 3.125 mg BID GERRI Administration Dextrose 0 ml 03/13/22 05:48 Dextrose 50% In Water (25gm) 50 Ml Syringe IV Q30MIN PRN Hypoglycemia Protocol Famotidine 20 mg 03/16/22 10:00 03/18/22 10:47 Famotidine 20 Mg Tab PO 20 mg QDAY GERRI Administration Furosemide 40 mg 03/13/22 18:00 03/19/22 05:03 Furosemide 40 Mg/4 Ml Inj IV 40 mg 0600,1800 [facility] Administration Heparin Sodium (Porcine) 5,000 unit 03/13/22 08:00 03/19/22 00:00 Heparin 5,000 Unit/1 Ml Vial SUB-Q 5,000 unit Q8H GERRI Administration Hydralazine HCl 10 mg 03/13/22 16:56 03/16/22 09:43 Hydralazine 20 Mg/1 Ml Inj IV 10 mg Q3H PRN Administration Hypertension Hydralazine HCl 10 mg 03/17/22 14:00 03/19/22 05:03 Hydralazine 10 Mg Tab PO 10 mg Q8HR [facility] Administration Insulin Human Lispro 0 unit 03/16/22 11:30 03/18/22 22:20 Insulin Lispro 100 Unit/Ml SUB-Q Not Given ACHS [facility] Protocol Lisinopril 20 mg 03/17/22 12:00 03/18/22 18:46 Lisinopril 20 Mg Tab PO Not Given QDAY [facility] Magnesium Hydroxide 30 ml 03/13/22 05:48 Magnesium Hydroxide (Mom) Oral Liqd Udc PO Q4H PRN Constipation Morphine Sulfate 2 mg 03/13/22 05:48 Morphine 2 Mg/1 Ml Inj IV Q4H PRN Pain, Moderate (4-6) Morphine Sulfate 4 mg 03/13/22 05:48 03/15/22 11:42 Morphine 4 Mg/1 Ml Inj IV 4 mg Q4H PRN Administration Pain , Severe (7-10) Nitroglycerin 1 inch 03/13/22 13:00 03/19/22 05:03 Nitroglycerin 2% Oint 1 Gm TP 1 inch [facility] Administration Protocol Ondansetron HCl 4 mg 03/13/22 05:48 Ondansetron 4 Mg/2 Ml Inj IV Q8H PRN Nausea And Vomiting Senna/Docusate Sodium 1 tab 03/16/22 10:00 03/18/22 22:18 Sennosides/Docusate Sodium 8.6/50 Mg Tab PO 1 tab Q12H GERRI Administration Sodium Chloride 10 ml 03/13/22 10:00 03/18/22 22:19 Sodium Chloride 0.9% 10 Ml Flush Syringe IV 10 ml BID GERRI Administration Sodium Chloride 10 ml 05/29/22 05:48 03/15/22 05:06 Sodium Chloride 0.9% 10 Ml Flush Syringe IV 10 ml PRN PRN Administration LINE FLUSH Spironolactone 50 mg 03/13/22 15:00 03/18/22 10:48 Spironolactone 50 Mg Tab PO 50 mg QDAY GERRI Administration Nutrition/Malnutrition Assess - Dietary Evaluation Nutrition/Malnutrition Findings: Nutrition Notes Start: 03/14/22 12:45 Freq: Status: Active Protocol: Document 03/16/22 15:27 MASOUD (Rec: 03/16/22 15:38 MASOUD [email or web address]) Nutrition Notes Initial or Follow up Brief Note Current Diagnosis COPD,Diabetes,Hypertension, Respiratory Failure Other Pertinent Diagnosis Encephalopathy, CHF, L-LE Stasis Dermatitis, Abdominal Pain/Nausea. Current Diet Consistent Carbohydrates Diet (since L 03/16). Height 6 ft Weight 196 kg [place] Body Weight (kg) 80.90 BMI 58.6 Weight change and time frame 2.8 Kg body weight loss reported in 2 days. Weight Status Morbidly Obese Subjective/Other Information RD consult for routine F/U on TF tolerance/continuation. Diet advanced to PO, Bedside Swallow Screen passed, according to RN notes. No reports available on Pt's PO intake of meals at the time , will assess at F/U. RN note on 03/16/22 09:07: 0700 Report completed. Assessment on patient completed. [id number] Reviewed patient with NEPHROLOGY NURSE. Bedside swallow completed with pass. Diet to be ordered. 1120 NGT removed per orders. Reviewed rome catheter with NEPHROLOGY NURSE. Pt is on Nasal Cannula, O2 saturation @ 92%, according to Physical Assessment History notes. Percent of energy/protein needs met: Prescribed Consistent Carbohydrates Diet provides for energy/protein needs (2, 061 Kcal/91 g) during LOS. #1 Nutrition Diagnosis Inadequate oral intake Diagnosis Progress(for reassessment Resolved documentation) Is patient on ventilator? No Is Patient Ambulatory and/or Out of Bed No REE-([facility]-confined to bed) 3408.432 Kcal/Kg value to use for calculation 12 Approximate Energy Requirements Using 2352 kcal/Kg Calculation Used for Recommendations Kcal/kg Additional Notes Protein: 0.8-1 g/Kg AdjBW; 112 -140 g/day. Fluids: 1 ml/Kcal, or as per MD. Nutrition Intervention Change Diet Order: Advance to Consistent Carbohydrates Diet as tolerated. Nutrition Support: Discontinued. Goal #1 Adjust the dietary intervention to better serve Pt's needs and clinical conditions during LOS. Goal #2 Maintain body weight within +/ -3% of admission body weight during LOS. Follow-Up By: 03/23/22 Additional Comments Start monitoring food tolerance, %PO intake of meals , and BM.
[2022-03-15] MEDS: hydrALAZINE 20 MG/1 ML INJ IV PRN (01:34)
[2022-03-15] MEDS: HEPARIN 5,000 UNIT/1 ML VIAL SUB-Q SCH ×3 (01:35→15:49)
[2022-03-15 04:54] LABS: Mean Corpuscular HGB Conc 30 % (32-34); Mean Corpuscular Volume 79 fl (84-94); Platelet Count 196 K/mm3 (140-440); Red Blood Count 4.88 M/mm3 (3.65-5.03)
[2022-03-15 04:55] LABS: Hematocrit 38.3 % (35.5-45.6); Hemoglobin 11.6 gm/dl (11.8-15.2); Red Cell Distribution Width 21.1 % (13.2-15.2)
[2022-03-15] MEDS: FUROSEMIDE 40 MG/4 ML INJ IV SCH ×2 (05:04→18:18)
[2022-03-15] MEDS: NITROGLYCERIN 2% OINT 1 GM TP SCH ×3 (05:04→18:11)
[2022-03-15 05:23] LABS: BUN/Creatinine Ratio 23; Blood Urea Nitrogen 21 mg/dL (9-20); Calcium 8.4 mg/dL (8.4-10.2); Hemolysis Index 3
[2022-03-15] MEDS ORDERED: POTASSIUM CHLORIDE 20 MEQ PACKET FEEDTUBE SCH (08:00)
[2022-03-15] MEDS: INSULIN LISPRO 100 UNIT/ML SUB-Q SCH ×3 (08:28→18:11)
[2022-03-15 09:00] LABS: ABG Base Excess 9.5 mmol/L (-2.0-3.0); ABG HCO3 33.4 mmol/L (20.0-26.0); ABG Methemoglobin 0.5 % (0.0-1.5); ABG Oxygen Saturation 95.6 % (95.0-99.0); ABG PCO2 42.7 mm Hg; ABG PH 7.511 pH Units (7.350-7.450); ABG PO2 68.3 mm Hg (80.0-90.0)
[2022-03-15] MEDS: SENNOSIDES/DOCUSATE SODIUM 8.6/50 MG TAB FEEDTUBE SCH ×2 (10:05→21:40)
[2022-03-15] MEDS: FAMOTIDINE 20 MG/2 ML INJ IV SCH ×2 (10:05→21:41)
--- NOTE | 2022-03-15 10:28 | Progress Note ---
Assessment and Plan 1. Acute systolic heart failure improving 2. Cardiomyopathy unspecified 3. Essential hypertension 4. Respiratory failure currently intubated on the mechanical ventilator. 5. Chronic cor pulmonale 6. Morbid obesity 7. Type 2 diabetes mellitus Echocardiogram was suboptimal secondary to poor acoustic windows global left ventricular systolic function appears to be within normal limits. The right ventricle and right atrium were inadequately visualized but appear to be dilated with good excursions of the RV free wall. Further cardiac evaluation with a cardiac MRI when more stable. Plan. Patient's is hemodynamically stable and rhythm is sinus. Currently in a negative fluid balance we will continue diuresing patient to be weaned off of mechanical ventilator and extubated as per pulmonary management. Subjective Date of service: 03/15/22 Principal diagnosis: Acute resp failure with hypoxia and hypercarbia Interval history: Patient alert intubated on mechanical ventilator. Objective Vital Signs Temp Pulse Pulse Pulse Resp BP Pulse Ox 03/15/22 09:01 70 30 H 149/92 91 03/15/22 08:45 70 26 H 147/87 93 03/15/22 08:31 74 27 H 147/87 96 03/15/22 08:15 67 30 H 147/87 96 03/15/22 08:00 65 68 29 H 147/87 89 03/15/22 07:45 73 13 152/109 95 03/15/22 07:37 74 143/83 95 03/15/22 07:31 59 L 30 H 152/109 94 03/15/22 07:15 67 31 H 143/83 94 03/15/22 07:00 61 27 H 152/109 94 03/15/22 06:45 67 30 H 151/86 93 03/15/22 06:31 63 30 H 151/86 94 03/15/22 06:15 64 30 H 152/109 94 03/15/22 06:01 68 30 H 152/109 93 03/15/22 05:45 65 28 H 151/86 95 03/15/22 05:31 66 30 H 151/86 94 03/15/22 05:15 62 19 151/86 96 03/15/22 05:04 62 151/86 03/15/22 05:01 62 30 H 151/86 92 03/15/22 04:45 65 29 H 152/92 96 03/15/22 04:31 65 30 H 152/92 94 03/15/22 04:20 69 29 H 89 03/15/22 04:15 65 30 H 152/92 95 03/15/22 04:01 69 30 H 152/92 89 03/15/22 03:45 65 30 H 151/84 95 03/15/22 03:31 64 30 H 151/84 95 03/15/22 03:15 67 30 H 151/84 95 03/15/22 03:01 61 30 H 152/87 94 03/15/22 03:00 98.0 F 61 29 H 89 03/15/22 02:45 60 30 H 152/87 95 03/15/22 02:31 60 29 H 152/87 95 03/15/22 02:15 62 24 152/87 96 03/15/22 02:01 60 30 H 167/100 97 03/15/22 01:45 65 27 H 167/100 96 03/15/22 01:34 61 167/100 03/15/22 01:31 64 30 H 167/100 95 03/15/22 01:25 64 29 H 177/135 99 03/15/22 01:15 58 L 30 H 154/97 95 03/15/22 01:01 64 30 H 154/97 96 03/15/22 01:00 61 03/15/22 00:45 59 L 27 H 154/97 92 03/15/22 00:31 60 30 H 154/97 95 03/15/22 00:15 62 22 154/97 93 03/15/22 00:01 64 26 H 154/97 97 03/15/22 00:00 98.0 F 69 03/14/22 23:45 62 30 H 154/97 94 03/14/22 23:31 66 21 154/97 95 03/14/22 23:15 62 30 H 154/97 96 03/14/22 23:08 63 27 H 154/97 96 03/14/22 23:01 63 30 H 154/97 90 03/14/22 23:00 62 29 H 89 03/14/22 22:45 62 30 H 143/86 95 03/14/22 22:31 60 30 H 138/90 93 03/14/22 22:15 65 30 H 138/90 94 03/14/22 22:01 64 30 H 143/86 90 03/14/22 21:45 62 30 H 138/90 94 03/14/22 21:31 63 30 H 138/90 94 03/14/22 21:15 62 30 H 138/90 94 03/14/22 21:10 29 H 89 03/14/22 21:01 138/81 03/14/22 20:45 138/81 94 03/14/22 20:31 82 16 138/81 94 03/14/22 20:15 66 23 138/81 95 03/14/22 20:01 67 30 H 138/81 91 03/14/22 20:00 98.2 F 69 03/14/22 19:45 71 30 H 135/80 95 03/14/22 19:31 68 24 135/80 94 03/14/22 19:26 67 135/80 95 03/14/22 19:15 69 30 H 135/80 96 03/14/22 19:01 71 30 H 135/80 90 03/14/22 19:00 71 68 29 H 89 03/14/22 18:45 76 19 133/111 94 03/14/22 18:31 81 22 122/80 03/14/22 18:15 79 13 122/80 93 03/14/22 18:01 62 24 122/80 92 03/14/22 17:45 63 30 H 139/77 95 03/14/22 17:31 64 30 H 139/77 90 03/14/22 17:15 64 30 H 125/74 94 03/14/22 17:05 64 124/74 03/14/22 17:01 65 30 H 125/74 92 03/14/22 16:45 65 30 H 109/75 95 03/14/22 16:31 72 15 109/75 91 03/14/22 16:15 65 30 H 122/70 96 03/14/22 16:01 73 29 H 122/70 93 03/14/22 15:45 67 26 H 145/89 93 03/14/22 15:31 74 17 145/89 93 03/14/22 15:30 63 145/89 94 03/14/22 15:15 79 18 146/94 92 03/14/22 15:00 63 30 H 93 03/14/22 14:46 65 30 H 163/63 95 03/14/22 14:30 63 24 144/81 90 03/14/22 14:16 65 30 H 142/80 92 03/14/22 14:00 65 30 H 134/78 92 03/14/22 13:46 66 30 H 129/78 93 03/14/22 13:30 67 27 H 131/83 88 03/14/22 13:16 70 29 H 136/75 93 03/14/22 13:00 64 30 H 148/79 88 03/14/22 12:46 67 30 H 148/79 92 03/14/22 12:42 62 143/79 03/14/22 12:30 60 30 H 143/79 90 03/14/22 12:16 64 30 H 152/82 94 03/14/22 12:00 67 67 29 H 142/84 89 03/14/22 11:46 66 30 H 140/78 87 03/14/22 11:38 66 139/74 96 03/14/22 11:30 65 30 H 139/74 88 03/14/22 11:16 70 30 H 141/78 94 03/14/22 11:00 69 30 H 132/78 94 03/14/22 10:46 66 30 H 143/89 93 03/14/22 10:30 88 21 143/89 94 - Physical Examination General: Other (intubated and sedated,Morbidly obese) HEENT: Positive: PERRL, Normocephaly, Mucus Membranes Moist. Negative: Jaundice Neck: Positive: neck supple, trachea midline. Negative: JVD/HJR Cardiac: Positive: Regular Rate, S1/S2, PMI, Dilated, Laterally Displaced. Negative: S3, S4 Lungs: Positive: clear to auscultation, No Wheeze, Rales, Rhonchi Neuro: Positive: No Lateralizing Findings, Other (Intubatd and sedated) Abdomen: Positive: Soft, Active Bowel Sounds Extremities: Present: edema, Other (peripheral ulcer left leg, hyperpigmentation both lower legs with vascular skin changes) - Labs and Meds CBC 03/15/22 Range/Units 04:17 WBC 6.6 (4.5-11.0) K/mm3 RBC 4.88 (3.65-5.03) M/mm3 Hgb 11.6 L (11.8-15.2) gm/dl Hct 38.3 (35.5-45.6) % Plt Count 196 (140-440) K/mm3 Comprehensive Metabolic Panel 03/15/22 Range/Units 04:17 Sodium 144 (137-145) mmol/L Potassium 3.3 L (3.6-5.0) mmol/L Chloride 99.8 (98-107) mmol/L Carbon Dioxide 30 (22-30) mmol/L BUN 21 H (9-20) mg/dL Creatinine 0.9 (0.8-1.3) mg/dL Glucose 87 (75-100) mg/dL Calcium 8.4 (8.4-10.2) mg/dL
--- NOTE | 2022-03-15 10:29 | XRay Report ---
CHEST 1 VIEW 03/15/2022 10:07 AM INDICATION / CLINICAL INFORMATION: resp failure. COMPARISON: One view of the chest from 03/14/2022. FINDINGS: SUPPORT DEVICES: Unchanged. HEART / MEDIASTINUM: Stable. LUNGS / PLEURA: Reduced lung volumes are noted with improved bilateral pulmonary opacities. No signif icant pleural effusion. No pneumothorax. ADDITIONAL FINDINGS: No significant additional findings. IMPRESSION: Improved aeration of the lungs without other significant interval changes. Signer Name: Jose De Jesus Gilmore MD Signed: 03/15/2022 10:25 AM Workstation Name: [id number]
[2022-03-15] MEDS: AZITHROMYCIN/NS 500 MG/250 ML 500 MG/250 ML BAG IV SCH (11:20)
[2022-03-15] MEDS: cefTRIAXone/NS 2 GM/100 ML 2 GM/100 ML BAG IV SCH (11:21)
[2022-03-15] MEDS: MORPHINE 4 MG/1 ML INJ IV PRN (11:42)
[2022-03-15] MEDS: SPIRONOLACTONE 50 MG TAB PO SCH (12:05)
--- NOTE | 2022-03-15 15:16 | Progress Note ---
<EDGARSUZAN ZamoraKolby - Last Filed: 03/15/22 16:47> Assessment and Plan Assessment and plan: This is a 56-year-old male with CHF, DM, HTN, morbid obesity admitted with acute hypercarbic respiratory failure, acute decompensated chronic combined systolic and diastolic heart failure Neuro: NAD -As needed morphine -Precedex gtt -Avoid delirium -Reorientation as needed -Maintain sleep-wake cycle -As needed analgesia Cardiac: Acute decompensated chronic combined systolic and diastolic heart failure, Chronic cor pulmonale (per cardio), h/o HTN -Cardiology consulted, appreciate recommendations -Blood pressure monitoring per protocol -Echocardiogram shows EF of 60 to 65% -Diuresis with Lasix and Aldactone -proBNP 4736 Respiratory: Acute hypercapnic and hypoxic respiratory failure, ? OHS versus AGUS -CCM consulted, appreciate recommendations -Intubated 03/13 wtih 7.5 OETT at 24 cm at lip -A.m. vent settings: Assist-control/PRVC tidal volume 500, rate 30, PEEP 10, FiO2 70% -See RT notes for titration -Currently at 55% -CCM decreased CPAP to 6/6 -RT to obtain NIF and RSBI and planned extubation -Bipap q HS -A.m. ABG and CXR noted -VAP bundle -SPO2 monitoring GI: Morbid obesity -24 hours -2470 mL -PPI -NTR consulted for tube feedings -BR: Senokat -CT abdomen/pelvis with contrast showed no acute findings, moderate cardiomegaly, diverticulosis without acute inflammation, degenerative changes of the lumbar spine present with straightening of lordosis and moderate loss of intervertebral disc space at L4-5 and L5 -S1, vacuum disc phenomenon present : Hypokalemia -Nephrology consulted, appreciate recommendations -Strict intake and output -Renally dose medications -Avoid nephrotoxic medications -Daily weights -Replete KCL -Trend BMP ID: ? CAP, lower extremity cellulites -Antibiotic therapy with azithromycin and Rocephin -Procal 1.23 -f/u blood culture -Monitor WBC and temperature curve Endo: h/o DM -Avoid hypoglycemia -SSI -Accu-Cheks q. 6hr Heme: NAD -Trend CBC -heparin subq -Transfuse hemoglobin less than 7 -Monitor for signs of bleeding -SCDs to BLE while in bed The high probability of a clinically significant, sudden or life threatening deterioration of the [resp/cardio] system(s) required my full and direct attention, intervention and personal management. The aggregate critical care time was [60] minutes. This time is in addition to time spent performing rep orted procedures but includes the following: [x] Data Review and interpretation [x] Patient assessment and monitoring of vital signs [x] Documentation [x] Medication orders and management Disposition Plan: icu Total Time Spent with Patient (Minutes): 60 History Interval history: This is a 56-year-old male with CHF, DM, HTN, MO presents to the emergency department on 03/13 with complaints of diffuse abdominal pain which started earlier in the day with nausea and intermittent shortness of breath on exertion. In the emergency department patient had an episode of respiratory distress and became hypoxic and was placed on nonrebreather with improvement his oxygen saturations. Work-up in the emergency department included a CXR which showed mild pulmonary vascular congestion and cardiomegaly and lab work significant for elevated creatinine of 1.1. Patient was admitted to the hospitalist service with consults to cardiology. While in the emergency department patient's respiratory distress progressed to acute hypercarbic respiratory failure with decompensated respiratory acidosis while on BiPAP and patient became unresponsive and had to be intubated in the emergency department. CCM was sent consulted and patient transferred to ICU. Hospital course to date: 03/14: Patient remains intubated with FiO2 of 70%, CXR shows cardiomegaly with pulmonary edema. We will continue antibiotics until procalcitonin results. Continue diuresis. Wean respiratory support as tolerated. Fentanyl as needed as needed. Patient has sedated however states that he is comfortable. 03/15: Weaning Fi02 as tolerated. No acute events overnight. Hospitalist Physical - Constitutional Vitals: Temp Pulse Resp BP Pulse Ox 98.0 F 66 30 H 135/90 96 03/15/22 03:00 03/15/22 12:15 03/15/22 12:15 03/15/22 12:15 03/15/22 12:15 General appearance: Present: no acute distress, well-nourished, obese Results - Labs CBC & Chem 7: 03/15/22 04:17 03/15/22 04:17 Labs: Laboratory Last Values WBC 6.6 K/mm3 (4.5-11.0) 03/15/22 04:17 RBC 4.88 M/mm3 (3.65-5.03) 03/15/22 04:17 Hgb 11.6 gm/dl (11.8-15.2) L 03/15/22 04:17 Hct 38.3 % (35.5-45.6) 03/15/22 04:17 MCV 79 fl (84-94) L 03/15/22 04:17 MCH 24 pg (28-32) L 03/15/22 04:17 MCHC 30 % (32-34) L 03/15/22 04:17 RDW 21.1 % (13.2-15.2) H 03/15/22 04:17 Plt Count 196 K/mm3 (140-440) 03/15/22 04:17 Lymph % (Auto) 24.4 % (13.4-35.0) 03/13/22 02:30 [place] % (Auto) 10.1 % (0.0-7.3) H 03/13/22 02:30 Eos % (Auto) 1.5 % (0.0-4.3) 03/13/22 02:30 Baso % (Auto) 0.4 % (0.0-1.8) 03/13/22 02:30 Lymph # (Auto) 1.6 K/mm3 (1.2-5.4) 03/13/22 02:30 [place] # (Auto) 0.7 K/mm3 (0.0-0.8) 03/13/22 02:30 Eos # (Auto) 0.1 K/mm3 (0.0-0.4) 03/13/22 02:30 Baso # (Auto) 0.0 K/mm3 (0.0-0.1) 03/13/22 02:30 Add Manual Diff Complete 03/14/22 Unknown Total Counted 100 03/14/22 Unknown Seg Neutrophils % Records Tech 03/14/22 Unknown Seg Neuts % (Manual) 89.0 % (40.0-70.0) H 03/14/22 Unknown Band Neutrophils % 3.0 % 03/14/22 Unknown Lymphocytes % (Manual) 4.0 % (13.4-35.0) L 03/14/22 Unknown Reactive Lymphs % (Man) 0 % 03/14/22 Unknown Monocytes % (Manual) 3.0 % (0.0-7.3) 03/14/22 Unknown Eosinophils % (Manual) 1.0 % (0.0-4.3) 03/14/22 Unknown Basophils % (Manual) 0 % (0.0-1.8) 03/14/22 Unknown Metamyelocytes % 0 % 03/14/22 Unknown Myelocytes % 0 % 03/14/22 Unknown Promyelocytes % 0 % 03/14/22 Unknown Blast Cells % 0 % 03/14/22 Unknown Nucleated RBC % Not Reportable 03/14/22 Unknown Seg Neutrophils # 4.3 K/mm3 (1.8-7.7) 03/13/22 02:30 Seg Neutrophils # Man 5.9 K/mm3 (1.8-7.7) 03/14/22 Unknown Band Neutrophils # 0.2 K/mm3 03/14/22 Unknown Lymphocytes # (Manual) 0.3 K/mm3 (1.2-5.4) L 03/14/22 Unknown Abs React Lymphs (Man) 0.0 K/mm3 03/14/22 Unknown Monocytes # (Manual) 0.2 K/mm3 (0.0-0.8) 03/14/22 Unknown Eosinophils # (Manual) 0.1 K/mm3 (0.0-0.4) 03/14/22 Unknown Basophils # (Manual) 0.0 K/mm3 (0.0-0.1) 03/14/22 Unknown Metamyelocytes # 0.0 K/mm3 03/14/22 Unknown Myelocytes # 0.0 K/mm3 03/14/22 Unknown Promyelocytes # 0.0 K/mm3 03/14/22 Unknown Blast Cells # 0.0 K/mm3 03/14/22 Unknown WBC Morphology Not Reportable 03/14/22 Unknown Hypersegmented Neuts Not Reportable 03/14/22 Unknown Hyposegmented Neuts Not Reportable 03/14/22 Unknown Hypogranular Neuts Not Reportable 03/14/22 Unknown Smudge Cells Not Reportable 03/14/22 Unknown Toxic Granulation Not Reportable 03/14/22 Unknown Toxic Vacuolation Not Reportable 03/14/22 Unknown Dohle Bodies Not Reportable 03/14/22 Unknown Pelger-Huet Anomaly Not Reportable 03/14/22 Unknown Jill Rods Not Reportable 03/14/22 Unknown Platelet Estimate Consistent w auto 03/14/22 Unknown Clumped Platelets Not Reportable 03/14/22 Unknown Plt Clumps, EDTA Not Reportable 03/14/22 Unknown Large Platelets Not Reportable 03/14/22 Unknown Giant Platelets Not Reportable 03/14/22 Unknown Platelet Satelliting Not Reportable 03/14/22 Unknown Plt Morphology Comment Not Reportable 03/14/22 Unknown RBC Morphology Not Reportable 03/14/22 Unknown Dimorphic RBCs Not Reportable 03/14/22 Unknown Polychromasia Not Reportable 03/14/22 Unknown Hypochromasia Not Reportable 03/14/22 Unknown Poikilocytosis Not Reportable 03/14/22 Unknown Anisocytosis Not Reportable 03/14/22 Unknown Microcytosis Few 03/14/22 Unknown Macrocytosis Not Reportable 03/14/22 Unknown Spherocytes Not Reportable 03/14/22 Unknown Pappenheimer Bodies Not Reportable 03/14/22 Unknown Sickle Cells Not Reportable 03/14/22 Unknown Target Cells Not Reportable 03/14/22 Unknown Tear Drop Cells Not Reportable 03/14/22 Unknown Ovalocytes Not Reportable 03/14/22 Unknown Helmet Cells Not Reportable 03/14/22 Unknown [place] Bodies Not Reportable 03/14/22 Unknown [place] Rings Not Reportable 03/14/22 Unknown [place] Cells Not Reportable 03/14/22 Unknown Bite Cells Not Reportable 03/14/22 Unknown Crenated Cell Not Reportable 03/14/22 Unknown Elliptocytes Not Reportable 03/14/22 Unknown Acanthocytes (Spur) Not Reportable 03/14/22 Unknown Rouleaux Not Reportable 03/14/22 Unknown Hemoglobin C Crystals Not Reportable 03/14/22 Unknown Schistocytes Not Reportable 03/14/22 Unknown Malaria parasites Not Reportable 03/14/22 Unknown Martell Bodies Not Reportable 03/14/22 Unknown Hem Pathologist Commnt No 03/14/22 Unknown ABG pH 7.511 pH Units (7.350-7.450) H 03/15/22 08:32 ABG pCO2 42.7 mm Hg 03/15/22 08:32 ABG pO2 68.3 mm Hg (80.0-90.0) L 03/15/22 08:32 ABG HCO3 33.4 mmol/L (20.0-26.0) H 03/15/22 08:32 ABG O2 Saturation 95.6 % (95.0-99.0) 03/15/22 08:32 ABG O2 Content 17.5 (0.0-44) 03/15/22 08:32 ABG Base Excess 9.5 mmol/L (-2.0-3.0) H 03/15/22 08:32 ABG Hemoglobin 13.3 gm/dl (14.0-18.0) L 03/15/22 08:32 ABG Carboxyhemoglobin 1.7 % (0.0-5.0) 03/15/22 08:32 ABG Methemoglobin 0.5 % (0.0-1.5) 03/15/22 08:32 Oxyhemoglobin 93.5 % (95.0-99.0) L 03/15/22 08:32 FiO2 75 % 03/15/22 08:32 Sodium 144 mmol/L (137-145) 03/15/22 04:17 Potassium 3.3 mmol/L (3.6-5.0) L 03/15/22 04:17 Chloride 99.8 mmol/L (98-107) 03/15/22 04:17 Carbon Dioxide 30 mmol/L (22-30) 03/15/22 04:17 Anion Gap 18 mmol/L 03/15/22 04:17 BUN 21 mg/dL (9-20) H 03/15/22 04:17 Creatinine 0.9 mg/dL (0.8-1.3) 03/15/22 04:17 Estimated GFR > 60 ml/min 03/15/22 04:17 BUN/Creatinine Ratio 23 % 03/15/22 04:17 Glucose 87 mg/dL (75-100) 03/15/22 04:17 POC Glucose 115 mg/dL (70-105) H 03/14/22 21:50 Calcium 8.4 mg/dL (8.4-10.2) 03/15/22 04:17 Magnesium 2.10 mg/dL (1.7-2.3) 03/15/22 09:14 Total Bilirubin 0.50 mg/dL (0.1-1.2) 03/13/22 02:30 AST 13 units/L (5-40) 03/13/22 02:30 ALT 13 units/L (7-56) 03/13/22 02:30 Alkaline Phosphatase 73 units/L (35-129) 03/13/22 02:30 NT-Pro-B Natriuret Pep 4736 pg/mL (0-900) H 03/13/22 02:30 Total Protein 7.5 g/dL (6.3-8.2) 03/13/22 02:30 Albumin 3.5 g/dL (3.9-5) L 03/13/22 02:30 Albumin/Globulin Ratio 0.9 % 03/13/22 02:30 Lipase 12 units/L (13-60) L 03/13/22 02:30 Procalcitonin 1.23 ng/mL (<0.15) 03/14/22 15:39 Urine Color Yellow (Yellow) 03/13/22 07:20 Urine Turbidity Clear (Clear) 03/13/22 07:20 Urine pH 5.0 (5.0-7.0) 03/13/22 07:20 Ur Specific [place] 1.012 (1.003-1.030) 03/13/22 07:20 Urine Protein 30 mg/dl mg/dL (Negative) 03/13/22 07:20 Urine Glucose (UA) Neg mg/dL (Negative) 03/13/22 07:20 Urine Ketones Neg mg/dL (Negative) 03/13/22 07:20 Urine Blood Neg (Negative) 03/13/22 07:20 Urine Nitrite Neg (Negative) 03/13/22 07:20 Urine Bilirubin Neg (Negative) 03/13/22 07:20 Urine Urobilinogen < 2.0 mg/dL (<2.0) 03/13/22 07:20 Ur Leukocyte Esterase Neg (Negative) 03/13/22 07:20 Urine WBC (Auto) < 1.0 /HPF (0.0-6.0) 03/13/22 07:20 Urine RBC (Auto) < 1.0 /HPF (0.0-6.0) 03/13/22 07:20 Urine Bacteria (Auto) 1+ /HPF (Negative) 03/13/22 07:20 Hyaline Casts 1 /LPF 03/13/22 07:20 Urine Mucus Few /HPF 03/13/22 07:20 [place]/IV: Voiding Method Indwelling Catheter Active Medications - Current Medications Current Medications: Generic Name Dose Route Start Last Admin Trade Name Freq PRN Reason Stop Dose Admin Acetaminophen 650 mg 03/13/22 05:48 Acetaminophen 325 Mg Tab PO Q4H PRN Pain MILD(1-3)/Fever >100.5/DEJESUS Albuterol 2.5 mg 03/14/22 10:00 Albuterol 2.5 Mg/3 Ml Nebu IH Q3H PRN Wheezing Dextrose 0 ml 03/13/22 05:48 Dextrose 50% In Water (25gm) 50 Ml Syringe IV Q30MIN PRN Hypoglycemia Protocol Famotidine 20 mg 03/13/22 22:00 03/15/22 10:05 Famotidine 20 Mg/2 Ml Inj IV 20 mg BID GERRI Administration Furosemide 40 mg 03/13/22 18:00 03/15/22 05:04 Furosemide 40 Mg/4 Ml Inj IV 40 mg 0600,1800 GERRI Administration Heparin Sodium (Porcine) 5,000 unit 03/13/22 08:00 03/15/22 09:00 Heparin 5,000 Unit/1 Ml Vial SUB-Q 5,000 unit Q8H GERRI Administration Hydralazine HCl 10 mg 03/13/22 16:56 03/15/22 01:34 Hydralazine 20 Mg/1 Ml Inj IV 10 mg Q3H PRN Administration Hypertension Hydrophilic Ointment 1 applic 03/13/22 19:33 Lip Therapy Vaseline TP Q2HR PRN Dry Lips Azithromycin 500 mg in 250 mls @ 250 mls/hr 03/13/22 12:00 03/15/22 11:20 Zithromax/Ns IV 250 mls/hr Q24H GERRI Administration Ceftriaxone Sodium 2 gm in 100 mls @ 200 mls/hr 03/13/22 11:00 03/15/22 11:21 Rocephin/Ns 2 Gm/100 Ml IV 200 mls/hr Q24HR GERRI Administration Protocol Dexmedetomidine HCl 200 mcg/ 50 mls @ 9.942 mls/hr 03/13/22 20:00 Sodium Chloride IV TITRATE [facility] Protocol 0.2 MCG/KG/HR Insulin Human Lispro 0 unit 03/15/22 12:00 03/15/22 11:26 Insulin Lispro 100 Unit/Ml SUB-Q Not Given Q6HR GERRI Protocol Magnesium Hydroxide 30 ml 03/13/22 05:48 Magnesium Hydroxide (Mom) Oral Liqd Udc PO Q4H PRN Constipation Morphine Sulfate 2 mg 03/13/22 05:48 Morphine 2 Mg/1 Ml Inj IV Q4H PRN Pain, Moderate (4-6) Morphine Sulfate 4 mg 03/13/22 05:48 03/15/22 11:42 Morphine 4 Mg/1 Ml Inj IV 4 mg Q4H PRN Administration Pain , Severe (7-10) Multi-Ingred Cream/Lotion/Oil/Oint 1 applic 03/13/22 19:33 Mineral Oil/Petrolatum, White Ophth Oint 3.5 Gm OU Q4HR PRN Dry Eye(s) Nitroglycerin 1 inch 03/13/22 13:00 03/15/22 10:05 Nitroglycerin 2% Oint 1 Gm TP 1 inch TIDNTG GERRI Administration Protocol Ondansetron HCl 4 mg 03/13/22 05:48 Ondansetron 4 Mg/2 Ml Inj IV Q8H PRN Nausea And Vomiting Senna/Docusate Sodium 1 tab 03/13/22 22:00 03/15/22 10:05 Sennosides/Docusate Sodium 8.6/50 Mg Tab FEEDTUBE 1 tab BID GERRI Administration Sodium Chloride 10 ml 03/13/22 10:00 03/15/22 10:05 Sodium Chloride 0.9% 10 Ml Flush Syringe IV 10 ml BID GERRI Administration Sodium Chloride 10 ml 03/13/22 05:48 03/15/22 05:06 Sodium Chloride 0.9% 10 Ml Flush Syringe IV 10 ml PRN PRN Administration LINE FLUSH Spironolactone 50 mg 03/13/22 15:00 03/15/22 12:05 Spironolactone 50 Mg Tab PO 50 mg QDAY GERRI Administration Nutrition/Malnutrition Assess - Dietary Evaluation Nutrition/Malnutrition Findings: Nutrition Notes Start: 03/14/22 12:45 Freq: Status: Active Protocol: Document 03/14/22 12:45 MASOUD (Rec: 03/14/22 13:04 MASOUD [id number]) Nutrition Notes Need for Assessment generated from: MD Order,bead cutter Initial or Follow up Assessment Current Diagnosis COPD,Diabetes,Hypertension, Respiratory Failure Other Pertinent Diagnosis Encephalopathy, CHF, L-LE Stasis Dermatitis, Abdominal Pain/Nausea. Current Diet TF-Glucerna 1.2 Mart @ 80 ml/hr (since D 03/14). Labs/Tests 03/14: Cl 97.2, BUN 23, Glu 132, Ca 7.6. Pertinent Medications 03/14: Nutritionally unremarkable. Height 6 ft Weight 198.8 kg [place] Body Weight (kg) 80.90 BMI 59.4 Intake Prior to Admission Good Weight change and time frame Pt states not having loss body weight [employer]. Weight Status Morbidly Obese Subjective/Other Information RD consult for skin risk and nutritional intake assessments , and write/manage TF. Pt is currently on Mechanical Ventilation, O2 saturation @ 89%, according to Physical Assessment History notes. Pt has missing teeth, according to Physical Assessment History notes. Pt presents abdominal pain and nausea, according to Physical Assessment History notes. Procedure on 03/13: Intubation and started Mechanical ventilation, well tolerated, according to Procedure notes. TF prescribed and ordered. Pt presents L-LE Stasis Dermatitis, according to Physical Assessment History notes and Admission Documents. Percent of energy/protein needs met: Prescribed TF-Glucerna 1.2 Mart @ 80 ml/hr provides for energy/protein needs (2,300 Kcal/115 g) during LOS, 96% Kcal; 100% AA. Burn Absent Trauma Absent GI Symptoms Nausea,Other Food Allergy No Skin Integrity/Comment L-LE Stasis Dermatitis Current % PO Other Minimum of two criteria No #1 Nutrition Diagnosis Inadequate oral intake Etiology Pt on Mechanical Ventilation. As Evidenced by Signs and Symptoms Pt currently on NPO. Is patient on ventilator? Yes Is Patient Ambulatory and/or Out of Bed No REE-([facility]-confined to bed) 3441.996 Kcal/Kg value to use for calculation 12 Approximate Energy Requirements Using 2386 kcal/Kg Calculation Used for Recommendations Kcal/kg Additional Notes Protein: 0.8-1 g/Kg AdjBW; 112 -140 g/day. Fluids: 1 ml/Kcal, or as per MD. Nutrition Intervention Nutrition Support: Start TF-Glucerna 1.2 Mart @ 80 ml/hr. Flush: 140 ml water Q 4 hr, or as per MD. Kcal 2,300 Protein (gm) 115 Carbohydrates (gm) 219 Fat (gm) 115 Fluid (mL) 1,543 Fiber (gm) 31 % RDI: 96% Kcal; 100% AA. Goal #1 Provide at least 75% of energy /protein needs through Enteral Feeding during LOS. Goal #2 Maintain body weight within +/ -3% of admission body weight during LOS. Follow-Up By: 03/16/22 Additional Comments Start monitoring TF tolerance and BM. <KURTIS RICH - Last Filed: 03/22/22 10:14> Assessment and Plan Assessment and plan: I saw and evaluated the patient. Discussed with the nurse practitioner and agree with their findings and plan as documented in this note. Hospitalist Physical - Constitutional Vitals: Temp Pulse Resp BP Pulse Ox 97.6 F 71 18 138/82 91 03/19/22 11:35 03/19/22 12:50 03/19/22 11:35 03/19/22 12:50 03/19/22 11:35 Results - Labs CBC & Chem 7: 03/17/22 05:10 03/19/22 07:25 Labs: Laboratory Last Values WBC 5.0 K/mm3 (4.5-11.0) 03/17/22 05:10 RBC 5.39 M/mm3 (3.65-5.03) H 03/17/22 05:10 Hgb 12.9 gm/dl (11.8-15.2) 03/17/22 05:10 Hct 42.9 % (35.5-45.6) 03/17/22 05:10 MCV 80 fl (84-94) L 03/17/22 05:10 MCH 24 pg (28-32) L 03/17/22 05:10 MCHC 30 % (32-34) L 03/17/22 05:10 RDW 20.7 % (13.2-15.2) H 03/17/22 05:10 Plt Count 183 K/mm3 (140-440) 03/17/22 05:10 Lymph % (Auto) 24.4 % (13.4-35.0) 03/13/22 02:30 [place] % (Auto) 10.1 % (0.0-7.3) H 03/13/22 02:30 Eos % (Auto) 1.5 % (0.0-4.3) 03/13/22 02:30 Baso % (Auto) 0.4 % (0.0-1.8) 03/13/22 02:30 Lymph # (Auto) 1.6 K/mm3 (1.2-5.4) 03/13/22 02:30 [place] # (Auto) 0.7 K/mm3 (0.0-0.8) 03/13/22 02:30 Eos # (Auto) 0.1 K/mm3 (0.0-0.4) 03/13/22 02:30 Baso # (Auto) 0.0 K/mm3 (0.0-0.1) 03/13/22 02:30 Add Manual Diff Complete 03/14/22 Unknown Total Counted 100 03/14/22 Unknown Seg Neutrophils % Records Tech 03/14/22 Unknown Seg Neuts % (Manual) 89.0 % (40.0-70.0) H 03/14/22 Unknown Band Neutrophils % 3.0 % 03/14/22 Unknown Lymphocytes % (Manual) 4.0 % (13.4-35.0) L 03/14/22 Unknown Reactive Lymphs % (Man) 0 % 03/14/22 Unknown Monocytes % (Manual) 3.0 % (0.0-7.3) 03/14/22 Unknown Eosinophils % (Manual) 1.0 % (0.0-4.3) 03/14/22 Unknown Basophils % (Manual) 0 % (0.0-1.8) 03/14/22 Unknown Metamyelocytes % 0 % 03/14/22 Unknown Myelocytes % 0 % 03/14/22 Unknown Promyelocytes % 0 % 03/14/22 Unknown Blast Cells % 0 % 03/14/22 Unknown Nucleated RBC % Not Reportable 03/14/22 Unknown Seg Neutrophils # 4.3 K/mm3 (1.8-7.7) 03/13/22 02:30 Seg Neutrophils # Man 5.9 K/mm3 (1.8-7.7) 03/14/22 Unknown Band Neutrophils # 0.2 K/mm3 03/14/22 Unknown Lymphocytes # (Manual) 0.3 K/mm3 (1.2-5.4) L 03/14/22 Unknown Abs React Lymphs (Man) 0.0 K/mm3 03/14/22 Unknown Monocytes # (Manual) 0.2 K/mm3 (0.0-0.8) 03/14/22 Unknown Eosinophils # (Manual) 0.1 K/mm3 (0.0-0.4) 03/14/22 Unknown Basophils # (Manual) 0.0 K/mm3 (0.0-0.1) 03/14/22 Unknown Metamyelocytes # 0.0 K/mm3 03/14/22 Unknown Myelocytes # 0.0 K/mm3 03/14/22 Unknown Promyelocytes # 0.0 K/mm3 03/14/22 Unknown Blast Cells # 0.0 K/mm3 03/14/22 Unknown WBC Morphology Not Reportable 03/14/22 Unknown Hypersegmented Neuts Not Reportable 03/14/22 Unknown Hyposegmented Neuts Not Reportable 03/14/22 Unknown Hypogranular Neuts Not Reportable 03/14/22 Unknown Smudge Cells Not Reportable 03/14/22 Unknown Toxic Granulation Not Reportable 03/14/22 Unknown Toxic Vacuolation Not Reportable 03/14/22 Unknown Dohle Bodies Not Reportable 03/14/22 Unknown Pelger-Huet Anomaly Not Reportable 03/14/22 Unknown Jill Rods Not Reportable 03/14/22 Unknown Platelet Estimate Consistent w auto 03/14/22 Unknown Clumped Platelets Not Reportable 03/14/22 Unknown Plt Clumps, EDTA Not Reportable 03/14/22 Unknown Large Platelets Not Reportable 03/14/22 Unknown Giant Platelets Not Reportable 03/14/22 Unknown Platelet Satelliting Not Reportable 03/14/22 Unknown Plt Morphology Comment Not Reportable 03/14/22 Unknown RBC Morphology Not Reportable 03/14/22 Unknown Dimorphic RBCs Not Reportable 03/14/22 Unknown Polychromasia Not Reportable 03/14/22 Unknown Hypochromasia Not Reportable 03/14/22 Unknown Poikilocytosis Not Reportable 03/14/22 Unknown Anisocytosis Not Reportable 03/14/22 Unknown Microcytosis Few 03/14/22 Unknown Macrocytosis Not Reportable 03/14/22 Unknown Spherocytes Not Reportable 03/14/22 Unknown Pappenheimer Bodies Not Reportable 03/14/22 Unknown Sickle Cells Not Reportable 03/14/22 Unknown Target Cells Not Reportable 03/14/22 Unknown Tear Drop Cells Not Reportable 03/14/22 Unknown Ovalocytes Not Reportable 03/14/22 Unknown Helmet Cells Not Reportable 03/14/22 Unknown [place] Bodies Not Reportable 03/14/22 Unknown [place] Rings Not Reportable 03/14/22 Unknown [place] Cells Not Reportable 03/14/22 Unknown Bite Cells Not Reportable 03/14/22 Unknown Crenated Cell Not Reportable 03/14/22 Unknown Elliptocytes Not Reportable 03/14/22 Unknown Acanthocytes (Spur) Not Reportable 03/14/22 Unknown Rouleaux Not Reportable 03/14/22 Unknown Hemoglobin C Crystals Not Reportable 03/14/22 Unknown Schistocytes Not Reportable 03/14/22 Unknown Malaria parasites Not Reportable 03/14/22 Unknown Martell Bodies Not Reportable 03/14/22 Unknown Hem Pathologist Commnt No 03/14/22 Unknown ABG pH 7.511 pH Units (7.350-7.450) H 03/15/22 08:32 ABG pCO2 42.7 mm Hg 03/15/22 08:32 ABG pO2 68.3 mm Hg (80.0-90.0) L 03/15/22 08:32 ABG HCO3 33.4 mmol/L (20.0-26.0) H 03/15/22 08:32 ABG O2 Saturation 95.6 % (95.0-99.0) 03/15/22 08:32 ABG O2 Content 17.5 (0.0-44) 03/15/22 08:32 ABG Base Excess 9.5 mmol/L (-2.0-3.0) H 03/15/22 08:32 ABG Hemoglobin 13.3 gm/dl (14.0-18.0) L 03/15/22 08:32 ABG Carboxyhemoglobin 1.7 % (0.0-5.0) 03/15/22 08:32 ABG Methemoglobin 0.5 % (0.0-1.5) 03/15/22 08:32 Oxyhemoglobin 93.5 % (95.0-99.0) L 03/15/22 08:32 FiO2 75 % 03/15/22 08:32 Sodium 137 mmol/L (137-145) 03/19/22 07:25 Potassium 4.3 mmol/L (3.6-5.0) 03/19/22 07:25 Chloride 94.7 mmol/L (98-107) L 03/19/22 07:25 Carbon Dioxide 35 mmol/L (22-30) H 03/19/22 07:25 Anion Gap 12 mmol/L 03/19/22 07:25 BUN 22 mg/dL (9-20) H 03/19/22 07:25 Creatinine 0.9 mg/dL (0.8-1.3) 03/19/22 07:25 Estimated GFR > 60 ml/min 03/19/22 07:25 BUN/Creatinine Ratio 24 % 03/19/22 07:25 Glucose 96 mg/dL (75-100) 03/19/22 07:25 POC Glucose 95 mg/dL (70-105) 03/19/22 11:34 Calcium 8.8 mg/dL (8.4-10.2) 03/19/22 07:25 Magnesium 2.10 mg/dL (1.7-2.3) 03/15/22 09:14 Total Bilirubin 0.50 mg/dL (0.1-1.2) 03/13/22 02:30 AST 13 units/L (5-40) 03/13/22 02:30 ALT 13 units/L (7-56) 03/13/22 02:30 Alkaline Phosphatase 73 units/L (35-129) 03/13/22 02:30 NT-Pro-B Natriuret Pep 4736 pg/mL (0-900) H 03/13/22 02:30 Total Protein 7.5 g/dL (6.3-8.2) 03/13/22 02:30 Albumin 3.5 g/dL (3.9-5) L 03/13/22 02:30 Albumin/Globulin Ratio 0.9 % 03/13/22 02:30 Lipase 12 units/L (13-60) L 03/13/22 02:30 Procalcitonin 1.23 ng/mL (<0.15) 03/14/22 15:39 Urine Color Yellow (Yellow) 03/13/22 07:20 Urine Turbidity Clear (Clear) 03/13/22 07:20 Urine pH 5.0 (5.0-7.0) 03/13/22 07:20 Ur Specific [place] 1.012 (1.003-1.030) 03/13/22 07:20 Urine Protein 30 mg/dl mg/dL (Negative) 03/13/22 07:20 Urine Glucose (UA) Neg mg/dL (Negative) 03/13/22 07:20 Urine Ketones Neg mg/dL (Negative) 03/13/22 07:20 Urine Blood Neg (Negative) 03/13/22 07:20 Urine Nitrite Neg (Negative) 03/13/22 07:20 Urine Bilirubin Neg (Negative) 03/13/22 07:20 Urine Urobilinogen < 2.0 mg/dL (<2.0) 03/13/22 07:20 Ur Leukocyte Esterase Neg (Negative) 03/13/22 07:20 Urine WBC (Auto) < 1.0 /HPF (0.0-6.0) 03/13/22 07:20 Urine RBC (Auto) < 1.0 /HPF (0.0-6.0) 03/13/22 07:20 Urine Bacteria (Auto) 1+ /HPF (Negative) 03/13/22 07:20 Hyaline Casts 1 /LPF 03/13/22 07:20 Urine Mucus Few /HPF 03/13/22 07:20 [place]/IV: Voiding Method Toilet Nutrition/Malnutrition Assess - Dietary Evaluation Nutrition/Malnutrition Findings: Nutrition Notes Start: 03/14/22 12:45 Freq: Status: Discharge Protocol: Document 03/16/22 15:27 MASOUD (Rec: 03/16/22 15:38 MASOUD [id number]) Nutrition Notes Initial or Follow up Brief Note Current Diagnosis COPD,Diabetes,Hypertension, Respiratory Failure Other Pertinent Diagnosis Encephalopathy, CHF, L-LE Stasis Dermatitis, Abdominal Pain/Nausea. Current Diet Consistent Carbohydrates Diet (since L 03/16). Height 6 ft Weight 196 kg [place] Body Weight (kg) 80.90 BMI 58.6 Weight change and time frame 2.8 Kg body weight loss reported in 2 days. Weight Status Morbidly Obese Subjective/Other Information RD consult for routine F/U on TF tolerance/continuation. Diet advanced to PO, Bedside Swallow Screen passed, according to RN notes. No reports available on Pt's PO intake of meals at the time , will assess at F/U. RN note on 03/16/22 09:07: 0700 Report completed. Assessment on patient completed. [id number] Reviewed patient with [employer]. Bedside swallow completed with pass. Diet to be ordered. 1120 NGT removed per orders. Reviewed rome catheter with [employer]KE [employer]KER. Pt is on Nasal Cannula, O2 saturation @ 92%, according to Physical Assessment History notes. Percent of energy/protein needs met: Prescribed Consistent Carbohydrates Diet provides for energy/protein needs (2, 061 Kcal/91 g) during LOS. #1 Nutrition Diagnosis Inadequate oral intake Diagnosis Progress(for reassessment Resolved documentation) Is patient on ventilator? No Is Patient Ambulatory and/or Out of Bed No REE-([place]-confined to bed) [phone] Kcal/Kg value to use for calculation 12 Approximate Energy Requirements Using 2352 kcal/Kg Calculation Used for Recommendations Kcal/kg Additional Notes Protein: 0.8-1 g/Kg AdjBW; 112 -140 g/day. Fluids: 1 ml/Kcal, or as per MD. Nutrition Intervention Change Diet Order: Advance to Consistent Carbohydrates Diet as tolerated. Nutrition Support: Discontinued. Goal #1 Adjust the dietary intervention to better serve Pt's needs and clinical conditions during LOS. Goal #2 Maintain body weight within +/ -3% of admission body weight during LOS. Follow-Up By: 03/23/22 Additional Comments Start monitoring food tolerance, %PO intake of meals , and BM.
--- NOTE | 2022-03-15 16:18 | Progress Note ---
Assessment and Plan Acute and chronic Respiratory Failure with Hypoxia and Hypercapnia 2/2 CHF Exacerbation on MVS h/o Tracheostomy Probable AGUS/Obesity Hypoventilation Syndrome Extreme obesity BMI 59.4 Acute decompensated chronic combined systolic and diastolic heart failure Dilated cardiomyopathy Type [address] SBT Psupp 6. 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 Stop antibiotics -Accuchecks with glycemic control. target blood glucose 140-180 mg/dL. Avoid hypoglycemia -VTE prophylaxis- Heparin -Avoid nephrotoxins and renally dose all medications -Stress ulcer prophylaxis- famotidine -Mobility, frequent turning, off loading per facility protocol to prevent pressure ulcers - Strict I&Os and Daily weights -Heart failure measures -Maintain sleep wake cycle, avoid benzodiazepines. -Limit delirium Will need aggressive weight loss management, dietary and life style modificatio ns Sleep study as outpatient, evaluation for surgical bariatric intervention CONDITION:CRITICAL PROGNOSIS: GUARDED CODE STATUS; FULL CODE The high probability of a clinically significant, sudden or life threatening deterioration of the respiratory, cardiovascular, neurology system required my full and direct attention, intervention and personal management. The aggregate critical care time was [35] minutes. This time is in addition to time spent performing reported procedures but includes the following: [x] Data Review and interpretation [x] Patient assessment and monitoring of vital signs [x] Documentation [x] Medication orders and management Subjective Date of service: 03/15/22 Principal diagnosis: Acute resp failure with hypoxia and hypercarbia Interval history: Follow up for: Acute and chronic Respiratory Failure with Hypoxia and Hypercapnia 2/2 CHF Exacerbation on MVS; Probable AGUS/Obesity Hypoventilation Syndrome ;Extreme obesity BMI 59.4;Acute decompensated chronic combined systolic and diastolic heart failure;Dilated cardiomyopathy;Type 2 diabetes mellitus Seen and examined. No adverse overnight events reported. Discussed with nursing and respiratory staff. remains orally intubated FIO2 40% PSV 10/ No reported fevers, no diarrhea, no emesis Objective Vital Signs - 12hr 03/15/22 03/15/22 03/15/22 04:20 04:31 04:45 Pulse Rate 69 65 65 Pulse Rate [ From Monitor] Respiratory 29 H 30 H 29 H Rate Blood Pressure 152/92 152/92 O2 Sat by Pulse 89 94 96 Oximetry 03/15/22 03/15/22 03/15/22 05:01 05:04 05:15 Pulse Rate 62 62 62 Pulse Rate [ From Monitor] Respiratory 30 H 19 Rate Blood Pressure 151/86 151/86 151/86 O2 Sat by Pulse 92 96 Oximetry 03/15/22 03/15/22 03/15/22 05:31 05:45 06:01 Pulse Rate 66 65 68 Pulse Rate [ From Monitor] Respiratory 30 H 28 H 30 H Rate Blood Pressure 151/86 151/86 152/109 O2 Sat by Pulse 94 95 93 Oximetry 03/15/22 03/15/22 03/15/22 06:15 06:31 06:45 Pulse Rate 64 63 67 Pulse Rate [ From Monitor] Respiratory 30 H 30 H 30 H Rate Blood Pressure 152/109 151/86 151/86 O2 Sat by Pulse 94 94 93 Oximetry 03/15/22 03/15/22 03/15/22 07:00 07:15 07:31 Pulse Rate 61 67 59 L Pulse Rate [ From Monitor] Respiratory 27 H 31 H 30 H Rate Blood Pressure 152/109 143/83 152/109 O2 Sat by Pulse 94 94 94 Oximetry 03/15/22 03/15/22 03/15/22 07:37 07:45 08:00 Pulse Rate 74 73 65 Pulse Rate [ 68 From Monitor] Respiratory 13 29 H Rate Blood Pressure 143/83 152/109 147/87 O2 Sat by Pulse 95 95 89 Oximetry 03/15/22 03/15/22 03/15/22 08:15 08:31 08:45 Pulse Rate 67 74 70 Pulse Rate [ From Monitor] Respiratory 30 H 27 H 26 H Rate Blood Pressure 147/87 147/87 147/87 O2 Sat by Pulse 96 96 93 Oximetry 03/15/22 03/15/22 03/15/22 09:01 09:15 09:31 Pulse Rate 70 73 61 Pulse Rate [ From Monitor] Respiratory 30 H 22 30 H Rate Blood Pressure 149/92 149/92 147/87 O2 Sat by Pulse 91 95 93 Oximetry 03/15/22 03/15/22 03/15/22 09:45 10:01 10:05 Pulse Rate 69 69 64 Pulse Rate [ From Monitor] Respiratory 30 H 30 H Rate Blood Pressure 147/87 150/90 150/90 O2 Sat by Pulse 93 89 Oximetry 03/15/22 03/15/22 03/15/22 10:15 10:31 10:45 Pulse Rate 69 71 71 Pulse Rate [ From Monitor] Respiratory 22 27 H 27 H Rate Blood Pressure 150/90 150/90 150/90 O2 Sat by Pulse 93 94 95 Oximetry 03/15/22 03/15/22 03/15/22 11:01 11:15 11:17 Pulse Rate 67 69 66 Pulse Rate [ From Monitor] Respiratory 26 H 30 H Rate Blood Pressure 150/90 150/90 O2 Sat by Pulse 94 94 96 Oximetry 03/15/22 03/15/22 03/15/22 11:31 11:45 12:00 Pulse Rate 72 62 72 Pulse Rate [ 72 From Monitor] Respiratory 28 H 30 H 30 H Rate Blood Pressure 150/90 150/90 O2 Sat by Pulse 95 96 96 Oximetry 03/15/22 03/15/22 03/15/22 12:01 12:05 12:15 Pulse Rate 72 72 66 Pulse Rate [ From Monitor] Respiratory 30 H 30 H Rate Blood Pressure 150/90 150/90 135/90 O2 Sat by Pulse 96 Oximetry 03/15/22 03/15/22 03/15/22 12:31 12:45 13:01 Pulse Rate 67 68 65 Pulse Rate [ From Monitor] Respiratory 30 H 30 H 30 H Rate Blood Pressure 144/89 144/89 144/89 O2 Sat by Pulse 88 97 91 Oximetry 03/15/22 03/15/22 03/15/22 13:15 13:31 13:45 Pulse Rate 64 65 70 Pulse Rate [ From Monitor] Respiratory 30 H 30 H 22 Rate Blood Pressure 144/89 144/89 144/89 O2 Sat by Pulse 97 90 97 Oximetry 03/15/22 03/15/22 03/15/22 14:01 14:15 14:31 Pulse Rate 75 66 71 Pulse Rate [ From Monitor] Respiratory 30 H 30 H 30 H Rate Blood Pressure 144/89 144/89 144/89 O2 Sat by Pulse 93 96 Oximetry 05/03/15/22 03/15/22 14:45 15:01 15:15 Pulse Rate 67 68 73 Pulse Rate [ From Monitor] Respiratory 30 H 20 30 H Rate Blood Pressure 144/89 144/89 149/98 O2 Sat by Pulse 95 92 95 Oximetry 03/15/22 03/15/22 03/15/22 15:31 15:45 15:47 Pulse Rate 62 66 66 Pulse Rate [ From Monitor] Respiratory 22 30 H 18 Rate Blood Pressure 152/88 152/88 152/88 O2 Sat by Pulse 92 94 95 Oximetry Constitutional: no acute distress, alert, other (atruamatic, normocephalic, alrge neck, orally intuabted) Eyes: non-icteric ENT: other (ETT at ) Neck: supple, no lymphadenopathy, other (short large neck) Effort: normal Ascultation: Bilateral: diminished breath sounds, rhonchi Cardiovascular: regular rate and rhythm, other (S1,S2) Gastrointestinal: normoactive bowel sounds, soft, non-tender, non-distended Extremities: edema (3+, scrotal edema, anterior abdominal wall edema) Neurologic: normal mental status, non-focal exam, pupils equal and round, motor strength normal and Psychiatric: mood appropriate, affect normal CBC and BMP: 03/16/22 08:04 03/16/22 08:04 ABG, PT/INR, D-dimer: ABG ABG pH 7.511 pH Units (7.350-7.450) H 03/15/22 08:32 ABG pCO2 42.7 mm Hg 03/15/22 08:32 ABG pO2 68.3 mm Hg (80.0-90.0) L 03/15/22 08:32 ABG O2 Saturation 95.6 % (95.0-99.0) 03/15/22 08:32 Abnormal lab findings: Abnormal Labs 03/13/22 03/13/22 03/13/22 02:30 02:30 07:50 Hgb 11.0 L MCV 80 L MCH 25 L MCHC 31 L RDW 21.0 H [place] % (Auto) 10.1 H Seg Neuts % (Manual) Lymphocytes % (Manual) Lymphocytes # (Manual) ABG pH 7.001 L* ABG pO2 90.8 H ABG HCO3 41.7 H ABG O2 Saturation 90.4 L ABG Base Excess 5.7 H ABG Hemoglobin 12.1 L Oxyhemoglobin 87.7 L Potassium Chloride Carbon Dioxide 33 H BUN 23 H Glucose POC Glucose Calcium 8.1 L NT-Pro-B Natriuret Pep 4736 H Albumin 3.5 L Lipase 12 L 03/13/22 03/13/22 03/14/22 11:10 21:52 02:50 Hgb MCV MCH MCHC RDW [place] % (Auto) Seg Neuts % (Manual) Lymphocytes % (Manual) Lymphocytes # (Manual) ABG pH ABG pO2 56.8 L ABG HCO3 35.2 H ABG O2 Saturation 93.6 L ABG Base Excess 9.6 H ABG Hemoglobin 12.1 L Oxyhemoglobin 91.0 L Potassium Chloride 97.2 L Carbon Dioxide BUN 23 H Glucose 132 H POC Glucose 107 H Calcium 7.6 L NT-Pro-B Natriuret Pep Albumin Lipase 03/14/22 03/14/22 03/14/22 05:24 09:54 12:21 Hgb MCV MCH MCHC RDW [place] % (Auto) Seg Neuts % (Manual) Lymphocytes % (Manual) Lymphocytes # (Manual) ABG pH 7.478 H ABG pO2 76.2 L ABG HCO3 33.5 H ABG O2 Saturation ABG Base Excess 8.9 H ABG Hemoglobin 11.4 L Oxyhemoglobin 94.8 L Potassium Chloride Carbon Dioxide BUN Glucose POC Glucose 145 H 149 H Calcium NT-Pro-B Natriuret Pep Albumin Lipase 03/14/22 03/14/22 03/14/22 16:32 21:50 Unknown Hgb 11.2 L MCV 78 L MCH 25 L MCHC 31 L RDW 20.8 H [place] % (Auto) Seg Neuts % (Manual) 89.0 H Lymphocytes % (Manual) 4.0 L Lymphocytes # (Manual) 0.3 L ABG pH ABG pO2 ABG HCO3 ABG O2 Saturation ABG Base Excess ABG Hemoglobin Oxyhemoglobin Potassium Chloride Carbon Dioxide BUN Glucose POC Glucose 125 H 115 H Calcium NT-Pro-B Natriuret Pep Albumin Lipase 03/15/22 03/15/22 03/15/22 04:17 04:17 08:32 Hgb 11.6 L MCV 79 L MCH 24 L MCHC 30 L RDW 21.1 H [place] % (Auto) Seg Neuts % (Manual) Lymphocytes % (Manual) Lymphocytes # (Manual) ABG pH 7.511 H ABG pO2 68.3 L ABG HCO3 33.4 H ABG O2 Saturation ABG Base Excess 9.5 H ABG Hemoglobin 13.3 L Oxyhemoglobin 93.5 L Potassium 3.3 L Chloride Carbon Dioxide BUN 21 H Glucose POC Glucose Calcium NT-Pro-B Natriuret Pep Albumin Lipase Chest x-ray: image reviewed Allied health notes reviewed: RT
[2022-03-16] MEDS: INSULIN LISPRO 100 UNIT/ML SUB-Q SCH ×6 (00:30→22:43)
[2022-03-16] MEDS: HEPARIN 5,000 UNIT/1 ML VIAL SUB-Q SCH ×5 (00:34→23:09)
[2022-03-16] MEDS: NITROGLYCERIN 2% OINT 1 GM TP SCH ×3 (05:14→17:31)
[2022-03-16] MEDS: FUROSEMIDE 40 MG/4 ML INJ IV SCH ×2 (05:14→17:31)
[2022-03-16 08:33] LABS: Hemoglobin 12.9 gm/dl (11.8-15.2); Mean Corpuscular HGB Conc 30 % (32-34); Mean Corpuscular Volume 80 fl (84-94); Platelet Count 179 K/mm3 (140-440); Red Blood Count 5.37 M/mm3 (3.65-5.03)
[2022-03-16 08:34] LABS: Hematocrit 42.9 % (35.5-45.6); Red Cell Distribution Width 21.1 % (13.2-15.2)
[2022-03-16 08:42] LABS: BUN/Creatinine Ratio 20; Blood Urea Nitrogen 20 mg/dL (9-20); Calcium 8.8 mg/dL (8.4-10.2); Hemolysis Index 1
[2022-03-16] MEDS: hydrALAZINE 20 MG/1 ML INJ IV PRN (09:43)
[2022-03-16] MEDS: FAMOTIDINE 20 MG TAB PO SCH (09:43)
[2022-03-16] MEDS: SENNOSIDES/DOCUSATE SODIUM 8.6/50 MG TAB PO SCH ×2 (09:43→22:34)
--- NOTE | 2022-03-16 09:43 | XRay Report ---
CHEST 1 VIEW INDICATION / CLINICAL INFORMATION: resp failure. FINDINGS: SUPPORT DEVICES: Interval removal of endotracheal tube. HEART / MEDIASTINUM: The cardiomediastinal silhouette has not significantly changed in the interim. LUNGS / PLEURA: Increasing bilateral airspace disease/edema when compared to yesterday's exam. Signer Name: Mandeep Wolf MD Signed: 03/16/2022 9:38 AM Workstation Name: [id number]
[2022-03-16] MEDS: SPIRONOLACTONE 50 MG TAB PO SCH (09:44)
[2022-03-16] MEDS ORDERED: FAMOTIDINE 20 MG TAB FEEDTUBE SCH (10:00)
--- NOTE | 2022-03-16 10:40 | Progress Note ---
Assessment and Plan 1. Acute systolic heart failure improving 2. Cardiomyopathy unspecified 3. Essential hypertension 4. Respiratory failure currently intubated on the mechanical ventilator. 5. Chronic cor pulmonale 6. Morbid obesity 7. Type 2 diabetes mellitus Echocardiogram was suboptimal secondary to poor acoustic windows global left ventricular systolic function appears to be within normal limits. The right ventricle and right atrium were inadequately visualized but appear to be dilated with good excursions of the RV free wall. Further cardiac evaluation with a cardiac MRI when more stable. Plan. Patient is hemodynamically stable. Transfer to telemetry. CHF education Subjective Date of service: 03/16/22 Principal diagnosis: Acute resp failure with hypoxia and hypercarbia Interval history: Patient is alert and now extubated denies any chest pain or shortness of breath. Objective Vital Signs Temp Pulse Pulse Pulse Resp Resp BP 03/16/22 10:15 87 27 H 166/95 03/16/22 10:01 87 24 166/95 03/16/22 09:45 78 19 154/116 03/16/22 09:44 78 165/116 03/16/22 09:43 75 165/116 03/16/22 09:31 83 17 154/116 03/16/22 09:15 77 12 190/102 03/16/22 09:09 98.2 F 03/16/22 09:01 74 27 H 190/102 03/16/22 08:45 116 H 20 201/149 03/16/22 08:31 75 17 169/124 03/16/22 08:15 83 18 147/86 03/16/22 08:01 75 17 147/86 03/16/22 08:00 71 71 14 03/16/22 07:45 71 13 143/94 03/16/22 07:31 97 H 39 H 143/94 03/16/22 07:15 78 14 143/94 03/16/22 07:01 80 14 143/94 03/16/22 06:45 70 14 152/98 03/16/22 06:31 72 17 140/95 03/16/22 06:15 69 20 140/95 03/16/22 06:01 115 H 46 H 140/95 03/16/22 05:45 94 H 23 141/93 03/16/22 05:31 68 15 141/93 03/16/22 05:15 68 14 152/92 03/16/22 05:14 65 152/92 03/16/22 05:01 68 15 152/92 03/16/22 04:45 73 19 141/91 03/16/22 04:36 67 20 03/16/22 04:31 67 18 145/86 03/16/22 04:15 65 18 147/88 03/16/22 04:01 66 17 156/96 03/16/22 03:52 98.9 F 03/16/22 03:45 64 17 156/96 03/16/22 03:31 66 19 147/88 03/16/22 03:15 75 17 156/96 03/16/22 03:01 68 18 156/96 03/16/22 02:45 78 18 145/96 03/16/22 02:31 70 19 123/75 03/16/22 02:15 69 18 123/75 03/16/22 02:01 79 20 123/75 03/16/22 01:55 03/16/22 01:45 73 20 138/80 03/16/22 01:31 74 19 138/80 03/16/22 01:15 77 15 147/97 03/16/22 01:01 70 15 147/97 03/16/22 00:55 20 03/16/22 00:45 66 17 142/92 03/16/22 00:30 69 10 L 142/92 03/16/22 00:15 69 18 142/92 03/16/22 00:01 70 21 142/92 03/16/22 00:00 98.5 F 03/15/22 23:45 73 14 141/89 03/15/22 23:30 71 14 141/89 03/15/22 23:15 68 18 141/89 03/15/22 23:01 77 17 147/89 03/15/22 23:00 69 73 20 03/15/22 22:45 69 18 147/89 03/15/22 22:31 70 13 147/89 03/15/22 22:15 74 19 147/89 03/15/22 22:01 71 18 153/95 03/15/22 21:45 72 24 153/95 03/15/22 21:31 72 16 153/95 03/15/22 21:28 78 24 143/93 03/15/22 21:15 74 24 143/93 03/15/22 21:01 76 17 143/93 03/15/22 20:45 76 17 144/95 03/15/22 20:31 75 17 144/95 03/15/22 20:15 78 21 140/92 03/15/22 20:01 79 18 140/92 03/15/22 19:45 76 12 141/92 03/15/22 19:31 85 19 144/98 03/15/22 19:25 98.9 F 03/15/22 19:15 85 12 144/98 03/15/22 19:01 82 18 144/98 03/15/22 18:55 76 73 20 03/15/22 18:45 89 18 03/15/22 18:30 85 13 149/94 03/15/22 18:15 82 18 164/104 03/15/22 18:11 78 149/94 03/15/22 18:01 79 18 164/104 03/15/22 17:45 75 19 164/104 03/15/22 17:31 76 19 164/104 03/15/22 17:28 78 03/15/22 17:15 85 79 19 19 164/104 03/15/22 17:10 81 20 03/15/22 17:01 85 21 164/104 03/15/22 16:45 81 21 158/95 03/15/22 16:31 77 21 158/95 03/15/22 16:15 75 17 154/94 03/15/22 16:01 73 20 154/94 03/15/22 16:00 73 20 03/15/22 15:47 66 18 152/88 03/15/22 15:45 66 30 H 152/88 03/15/22 15:31 62 22 152/88 03/15/22 15:15 73 30 H 149/98 03/15/22 15:01 68 20 144/89 03/15/22 14:45 67 30 H 144/89 03/15/22 14:31 71 30 H 144/89 03/15/22 14:15 66 30 H 144/89 03/15/22 14:01 75 30 H 144/89 03/15/22 13:45 70 22 144/89 03/15/22 13:31 65 30 H 144/89 03/15/22 13:15 64 30 H 144/89 03/15/22 13:01 65 30 H 144/89 03/15/22 12:45 68 30 H 144/89 03/15/22 12:31 67 30 H 144/89 03/15/22 12:15 66 30 H 135/90 03/15/22 12:05 72 150/90 03/15/22 12:01 72 30 H 150/90 03/15/22 12:00 72 72 30 H 03/15/22 11:45 62 30 H 150/90 03/15/22 11:31 72 28 H 150/90 03/15/22 11:17 66 03/15/22 11:15 69 30 H 150/90 03/15/22 11:01 67 26 H 150/90 03/15/22 10:45 71 27 H 150/90 Pulse Ox 03/16/22 10:15 92 03/16/22 10:01 85 03/16/22 09:45 92 03/16/22 09:44 03/16/22 09:43 03/16/22 09:31 91 03/16/22 09:15 92 03/16/22 09:09 03/16/22 09:01 89 03/16/22 08:45 91 03/16/22 08:31 92 03/16/22 08:15 94 03/16/22 08:01 93 03/16/22 08:00 95 03/16/22 07:45 95 03/16/22 07:31 91 03/16/22 07:15 95 03/16/22 07:01 91 03/16/22 06:45 92 03/16/22 06:31 96 03/16/22 06:15 89 03/16/22 06:01 94 03/16/22 05:45 100 03/16/22 05:31 97 03/16/22 05:15 99 03/16/22 05:14 03/16/22 05:01 96 03/16/22 04:45 100 03/16/22 04:36 97 03/16/22 04:31 95 03/16/22 04:15 99 03/16/22 04:01 95 03/16/22 03:52 03/16/22 03:45 100 03/16/22 03:31 96 03/16/22 03:15 99 03/16/22 03:01 100 06/01/22 02:45 100 03/16/22 02:31 98 03/16/22 02:15 91 03/16/22 02:01 85 03/16/22 01:55 97 03/16/22 01:45 89 03/16/22 01:31 86 03/16/22 01:15 89 03/16/22 01:01 90 03/16/22 00:55 97 03/16/22 00:45 96 03/16/22 00:30 93 03/16/22 00:15 92 03/16/22 00:01 88 03/16/22 00:00 03/15/22 23:45 93 03/15/22 23:30 93 03/15/22 23:15 95 03/15/22 23:01 88 03/15/22 23:00 97 03/15/22 22:45 95 03/15/22 22:31 88 03/15/22 22:15 92 03/15/22 22:01 03/15/22 21:45 95 03/15/22 21:31 94 03/15/22 21:28 93 03/15/22 21:15 92 03/15/22 21:01 89 03/15/22 20:45 92 03/15/22 20:31 90 03/15/22 20:15 92 03/15/22 20:01 89 03/15/22 19:45 94 03/15/22 19:31 03/15/22 19:25 03/15/22 19:15 91 03/15/22 19:01 87 03/15/22 18:55 97 03/15/22 18:45 88 03/15/22 18:30 90 03/15/22 18:15 95 03/15/22 18:11 03/15/22 18:01 88 03/15/22 17:45 96 03/15/22 17:31 90 03/15/22 17:28 96 03/15/22 17:15 92 03/15/22 17:10 97 03/15/22 17:01 88 03/15/22 16:45 94 03/15/22 16:31 88 03/15/22 16:15 94 03/15/22 16:01 89 03/15/22 16:00 89 03/15/22 15:47 95 03/15/22 15:45 94 03/15/22 15:31 92 03/15/22 15:15 95 03/15/22 15:01 92 03/15/22 14:45 95 03/15/22 14:31 03/15/22 14:15 96 03/15/22 14:01 93 03/15/22 13:45 97 03/15/22 13:31 90 03/15/22 13:15 97 03/15/22 13:01 91 03/15/22 12:45 97 03/15/22 12:31 88 03/15/22 12:15 96 03/15/22 12:05 03/15/22 12:01 03/15/22 12:00 96 03/15/22 11:45 96 03/15/22 11:31 95 03/15/22 11:17 96 03/15/22 11:15 94 03/15/22 11:01 94 03/15/22 10:45 95 - Physical Examination General: Appears Well, No Apparent Distress, Other (Morbidly obese) HEENT: Positive: PERRL, Normocephaly, Mucus Membranes Moist. Negative: Jaundice Neck: Positive: neck supple, trachea midline. Negative: JVD/HJR Cardiac: Positive: Regular Rate, S1/S2, PMI, Dilated, Laterally Displaced. Negative: S3, S4 Lungs: Positive: clear to auscultation, No Wheeze, Rales, Rhonchi Neuro: Positive: Grossly Intact, No Lateralizing Findings, Other (Intubatd and sedated) Abdomen: Positive: Soft, Active Bowel Sounds Extremities: Present: edema, Other (peripheral ulcer left leg, hyperpigmentation both lower legs with vascular skin changes) - Labs and Meds CBC 03/16/22 Range/Units 08:04 WBC 4.7 (4.5-11.0) K/mm3 RBC 5.37 H (3.65-5.03) M/mm3 Hgb 12.9 (11.8-15.2) gm/dl Hct 42.9 (35.5-45.6) % Plt Count 179 (140-440) K/mm3 Comprehensive Metabolic Panel 03/16/22 Range/Units 08:04 Sodium 140 (137-145) mmol/L Potassium 4.0 D (3.6-5.0) mmol/L Chloride 96.8 L (98-107) mmol/L Carbon Dioxide 33 H (22-30) mmol/L BUN 20 (9-20) mg/dL Creatinine 1.0 (0.8-1.3) mg/dL Glucose 86 (75-100) mg/dL Calcium 8.8 (8.4-10.2) mg/dL - EKG Sinus rhythms and dysrhythmias: sinus rhythm - Allied health notes Allied health notes reviewed: RT
[2022-03-16] MEDS: amLODIPine 5 MG TAB PO SCH (12:30)
--- NOTE | 2022-03-16 13:54 | Progress Note ---
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 evaluation and advance diet as tolerated - accuchecks with glycemic control per SSI (While critically ill target blood glucose of 140-180 mg/dL; avoid hypoglycemia) - supplemental oxygen for target O2 sat's > 90% acutely - aspiration precautions - bronchodilators with pulmonary hygiene per RT - wean per pulmonary driven protocols otherwise - avoid nephrotoxins, renally dose all medications - continue to avoid benzodiazepine's, reduce the possibility of delirium - AB's per ID rec's - prn analgesia per pain score - Maintenance of sleep-wake cycle, avoid delirium - continue enteral nutritional support at goal rate as tolerated - G.I. & VTE prophylaxis - PT/OT/ROM exercises - continue mobility protocols for pressure ulcer prophylaxis - Monitor hemodynamics closely - continue other care per attending / other consultants - discharge planning ongoing concurrently .... Re-evaluate in am & prn CONDITION: CRITICAL PROGNOSIS: GUARDED CODE STATUS: FULL CODE The high probability of a clinically significant, sudden or life-threatening deterioration of the [respiratory, cardiovascular & neurologic] system(s) required my full and direct attention, intervention and personal management. The aggregate critical care time was [35] minutes without overlap. Time includes s pent on; [x] Data Review and interpretation [x] Patient assessment and monitoring of vital signs [x] Documentation [x] Medication orders and management Subjective Date of service: 03/16/22 Principal diagnosis: Acute resp failure with hypoxia and hypercarbia Interval history: Patient is seen today for: Seen and examined at bedside; 24hour events reviewed; nursing and respiratory care staff consulted; no adverse overnight events reported to me; extubated and doing well so far however now on BIPAP 18/ rate 18 with FiO2 @ 100% and only 97% O2 sats; lethargic; no N/V/F/C Objective Vital Signs - 12hr 03/16/22 03/16/22 03/16/22 01:55 02:01 02:15 Temperature Pulse Rate 79 69 Pulse Rate [ From Monitor] Respiratory 20 18 Rate Blood Pressure 123/75 123/75 O2 Sat by Pulse 97 85 91 Oximetry 03/16/22 03/16/22 03/16/22 02:31 02:45 03:01 Temperature Pulse Rate 70 78 68 Pulse Rate [ From Monitor] Respiratory 19 18 18 Rate Blood Pressure 123/75 145/96 156/96 O2 Sat by Pulse 98 100 100 Oximetry 03/16/22 03/16/22 03/16/22 03:15 03:31 03:45 Temperature Pulse Rate 75 66 64 Pulse Rate [ From Monitor] Respiratory 17 19 17 Rate Blood Pressure 156/96 147/88 156/96 O2 Sat by Pulse 99 96 100 Oximetry 03/16/22 03/16/22 03/16/22 03:52 04:01 04:15 Temperature 98.9 F Pulse Rate 66 65 Pulse Rate [ From Monitor] Respiratory 17 18 Rate Blood Pressure 156/96 147/88 O2 Sat by Pulse 95 99 Oximetry 03/16/22 03/16/22 03/16/22 04:31 04:36 04:45 Temperature Pulse Rate 67 67 73 Pulse Rate [ From Monitor] Respiratory 18 20 19 Rate Blood Pressure 145/86 141/91 O2 Sat by Pulse 95 97 100 Oximetry 03/16/22 03/16/22 03/16/22 05:01 05:14 05:15 Temperature Pulse Rate 68 65 68 Pulse Rate [ From Monitor] Respiratory 15 14 Rate Blood Pressure 152/92 152/92 152/92 O2 Sat by Pulse 96 99 Oximetry 03/16/22 03/16/22 03/16/22 05:31 05:45 06:01 Temperature Pulse Rate 68 94 H 115 H Pulse Rate [ From Monitor] Respiratory 15 23 46 H Rate Blood Pressure 141/93 141/93 140/95 O2 Sat by Pulse 97 100 94 Oximetry 03/16/22 03/16/22 03/16/22 06:15 06:31 06:45 Temperature Pulse Rate 69 72 70 Pulse Rate [ From Monitor] Respiratory 20 17 14 Rate Blood Pressure 140/95 140/95 152/98 O2 Sat by Pulse 89 96 92 Oximetry 03/16/22 03/16/22 03/16/22 07:01 07:15 07:31 Temperature Pulse Rate 80 78 97 H Pulse Rate [ From Monitor] Respiratory 14 14 39 H Rate Blood Pressure 143/94 143/94 143/94 O2 Sat by Pulse 91 95 91 Oximetry 03/16/22 03/16/22 03/16/22 07:45 08:00 08:01 Temperature Pulse Rate 71 71 75 Pulse Rate [ 71 From Monitor] Respiratory 13 14 17 Rate Blood Pressure 143/94 147/86 O2 Sat by Pulse 95 95 93 Oximetry 03/16/22 03/16/22 03/16/22 08:15 08:31 08:45 Temperature Pulse Rate 83 75 116 H Pulse Rate [ From Monitor] Respiratory 18 17 20 Rate Blood Pressure 147/86 169/124 201/149 O2 Sat by Pulse 94 92 91 Oximetry 03/16/22 03/16/22 03/16/22 09:01 09:09 09:15 Temperature 98.2 F Pulse Rate 74 77 Pulse Rate [ From Monitor] Respiratory 27 H 12 Rate Blood Pressure 190/102 190/102 O2 Sat by Pulse 89 92 Oximetry 03/16/22 03/16/22 03/16/22 09:31 09:43 09:44 Temperature Pulse Rate 83 75 78 Pulse Rate [ From Monitor] Respiratory 17 Rate Blood Pressure 154/116 165/116 165/116 O2 Sat by Pulse 91 Oximetry 03/16/22 03/16/22 03/16/22 09:45 10:01 10:15 Temperature Pulse Rate 78 87 87 Pulse Rate [ From Monitor] Respiratory 19 24 27 H Rate Blood Pressure 154/116 166/95 166/95 O2 Sat by Pulse 92 85 92 Oximetry 03/16/22 03/16/22 03/16/22 10:31 10:45 11:01 Temperature Pulse Rate 82 94 H 86 Pulse Rate [ From Monitor] Respiratory 24 24 17 Rate Blood Pressure 174/89 174/89 174/89 O2 Sat by Pulse 89 89 85 Oximetry 03/16/22 03/16/22 03/16/22 11:15 11:21 11:30 Temperature Pulse Rate 79 75 81 Pulse Rate [ 71 From Monitor] Respiratory 16 14 18 Rate Blood Pressure 190/110 269/194 O2 Sat by Pulse 69 L 92 Oximetry 03/16/22 03/16/22 03/16/22 11:38 11:45 12:01 Temperature 98.4 F Pulse Rate 80 83 Pulse Rate [ From Monitor] Respiratory 22 22 Rate Blood Pressure 146/91 140/99 O2 Sat by Pulse 84 84 Oximetry 0603/16/22 03/16/22 12:15 12:29 12:30 Temperature Pulse Rate 79 81 79 Pulse Rate [ From Monitor] Respiratory 15 21 Rate Blood Pressure 140/99 140/99 129/90 O2 Sat by Pulse 92 82 L Oximetry 03/16/22 03/16/22 03/16/22 12:45 13:00 13:15 Temperature Pulse Rate 81 86 Pulse Rate [ From Monitor] Respiratory 29 H 19 34 H Rate Blood Pressure 129/90 147/87 147/87 O2 Sat by Pulse 94 93 100 Oximetry 03/16/22 13:30 Temperature Pulse Rate 71 Pulse Rate [ From Monitor] Respiratory 22 Rate Blood Pressure 140/90 O2 Sat by Pulse 90 Oximetry Constitutional: no acute distress, alert, other (atruamatic, normocephalic, alrge neck, orally intuabted) Eyes: non-icteric ENT: other (BIPAP FFM) Neck: supple, no lymphadenopathy, other (short large neck) Effort: normal Ascultation: Bilateral: diminished breath sounds, rhonchi Percussion: Bilateral: not dull Cardiovascular: regular rate and rhythm, other (S1,S2) Gastrointestinal: normoactive bowel sounds, soft, non-tender, non-distended Integumentary: rash (stasis dermatitis) Extremities: pulses normal, no ischemia or petechiae, edema (3+, scrotal edema, anterior abdominal wall edema) Neurologic: normal mental status, non-focal exam, pupils equal and round, motor strength normal and Psychiatric: mood appropriate, affect normal CBC and BMP: 03/16/22 08:04 03/16/22 08:04 ABG, PT/INR, D-dimer: ABG ABG pH 7.511 pH Units (7.350-7.450) H 03/15/22 08:32 ABG pCO2 42.7 mm Hg 03/15/22 08:32 ABG pO2 68.3 mm Hg (80.0-90.0) L 03/15/22 08:32 ABG O2 Saturation 95.6 % (95.0-99.0) 03/15/22 08:32 Abnormal lab findings: Abnormal Labs 03/13/22 03/13/22 03/13/22 02:30 02:30 07:50 RBC Hgb 11.0 L MCV 80 L MCH 25 L MCHC 31 L RDW 21.0 H [place] % (Auto) 10.1 H Seg Neuts % (Manual) Lymphocytes % (Manual) Lymphocytes # (Manual) ABG pH 7.001 L* ABG pO2 90.8 H ABG HCO3 41.7 H ABG O2 Saturation 90.4 L ABG Base Excess 5.7 H ABG Hemoglobin 12.1 L Oxyhemoglobin 87.7 L Potassium Chloride Carbon Dioxide 33 H BUN 23 H Glucose POC Glucose Calcium 8.1 L NT-Pro-B Natriuret Pep 4736 H Albumin 3.5 L Lipase 12 L 03/13/22 03/13/22 03/14/22 11:10 21:52 02:50 RBC Hgb MCV MCH MCHC RDW [place] % (Auto) Seg Neuts % (Manual) Lymphocytes % (Manual) Lymphocytes # (Manual) ABG pH ABG pO2 56.8 L ABG HCO3 35.2 H ABG O2 Saturation 93.6 L ABG Base Excess 9.6 H ABG Hemoglobin 12.1 L Oxyhemoglobin 91.0 L Potassium Chloride 97.2 L Carbon Dioxide BUN 23 H Glucose 132 H POC Glucose 107 H Calcium 7.6 L NT-Pro-B Natriuret Pep Albumin Lipase 03/14/22 03/14/22 03/14/22 05:24 09:54 12:21 RBC Hgb MCV MCH MCHC RDW [place] % (Auto) Seg Neuts % (Manual) Lymphocytes % (Manual) Lymphocytes # (Manual) ABG pH 7.478 H ABG pO2 76.2 L ABG HCO3 33.5 H ABG O2 Saturation ABG Base Excess 8.9 H ABG Hemoglobin 11.4 L Oxyhemoglobin 94.8 L Potassium Chloride Carbon Dioxide BUN Glucose POC Glucose 145 H 149 H Calcium NT-Pro-B Natriuret Pep Albumin Lipase 03/14/22 03/14/22 03/14/22 16:32 21:50 Unknown RBC Hgb 11.2 L MCV 78 L MCH 25 L MCHC 31 L RDW 20.8 H [place] % (Auto) Seg Neuts % (Manual) 89.0 H Lymphocytes % (Manual) 4.0 L Lymphocytes # (Manual) 0.3 L ABG pH ABG pO2 ABG HCO3 ABG O2 Saturation ABG Base Excess ABG Hemoglobin Oxyhemoglobin Potassium Chloride Carbon Dioxide BUN Glucose POC Glucose 125 H 115 H Calcium NT-Pro-B Natriuret Pep Albumin Lipase 03/15/22 03/15/22 03/15/22 04:17 04:17 08:32 RBC Hgb 11.6 L MCV 79 L MCH 24 L MCHC 30 L RDW 21.1 H [place] % (Auto) Seg Neuts % (Manual) Lymphocytes % (Manual) Lymphocytes # (Manual) ABG pH 7.511 H ABG pO2 68.3 L ABG HCO3 33.4 H ABG O2 Saturation ABG Base Excess 9.5 H ABG Hemoglobin 13.3 L Oxyhemoglobin 93.5 L Potassium 3.3 L Chloride Carbon Dioxide BUN 21 H Glucose POC Glucose Calcium NT-Pro-B Natriuret Pep Albumin Lipase 03/16/22 03/16/22 08:04 08:04 RBC 5.37 H Hgb MCV 80 L MCH 24 L MCHC 30 L RDW 21.1 H [place] % (Auto) Seg Neuts % (Manual) Lymphocytes % (Manual) Lymphocytes # (Manual) ABG pH ABG pO2 ABG HCO3 ABG O2 Saturation ABG Base Excess ABG Hemoglobin Oxyhemoglobin Potassium Chloride 96.8 L Carbon Dioxide 33 H BUN Glucose POC Glucose Calcium NT-Pro-B Natriuret Pep Albumin Lipase Chest x-ray: image reviewed (gross cardiomegaly; mild CHF) Allied health notes reviewed: nursing
--- NOTE | 2022-03-16 14:55 | Progress Note ---
<EDGARSUZANKolby - Last Filed: 03/16/22 14:47> Assessment and Plan Assessment and plan: This is a 56-year-old male with CHF, DM, HTN, morbid obesity admitted with acute hypercarbic respiratory failure, acute decompensated chronic combined systolic and diastolic heart failure Neuro: NAD -As needed morphine -s/p Precedex -Avoid delirium -Reorientation as needed -Maintain sleep-wake cycle -As needed analgesia -PT/OT consulted Cardiac: Acute decompensated chronic combined systolic and diastolic heart failure, Chronic cor pulmonale (per cardio), h/o HTN -Cardiology consulted, appreciate recommendations -Blood pressure monitoring per protocol -Echocardiogram shows EF of 60 to 65% -Diuresis with Lasix and Aldactone -proBNP 4736 Respiratory: Acute hypercapnic and hypoxic respiratory failure, ? OHS versus AGUS -CCM consulted, appreciate recommendations -Intubated 03/13 with 7.5 OETT at 24 cm at lip, extubated 03/15 -Bipap qhs -NC during day -Pulmonary hygiene -SPO2 monitoring GI: Morbid obesity -24 hours -5900 mL -PPI -CC diet -BR: Senokat -CT abdomen/pelvis with contrast showed no acute findings, moderate cardiomegaly, diverticulosis without acute inflammation, degenerative changes of the lumbar spine present with straightening of lordosis and moderate loss of intervertebral disc space at L4-5 and L5 -S1, vacuum disc phenomenon present : NAD -Nephrology consulted, appreciate recommendations -Strict intake and output -Renally dose medications -Avoid nephrotoxic medications -Daily weights -Trend BMP ID: Lower extremity cellulites -Antibiotic therapy with Rocephin -Procal 1.23 -f/u blood culture -Monitor WBC and temperature curve Endo: h/o DM -Avoid hypoglycemia -SSI -Accu-Cheks ACHS Heme: NAD -Trend CBC -heparin subq -Transfuse hemoglobin less than 7 -Monitor for signs of bleeding -SCDs to BLE while in bed The high probability of a clinically significant, sudden or life threatening deterioration of the [resp/cardio] system(s) required my full and direct attention, intervention and personal management. The aggregate critical care time was [60] minutes. This time is in addition to time spent performing reported procedures but includes the following: [x] Data Review and interpretation [x] Patient assessment and monitoring of vital signs [x] Documentation [x] Medication orders and management Disposition Plan: [facility] Total Time Spent with Patient (Minutes): 60 History Interval history: This is a 56-year-old male with CHF, DM, HTN, MO presents to the emergency department on 03/13 with complaints of diffuse abdominal pain which started earlier in the day with nausea and intermittent shortness of breath on exertion. In the emergency department patient had an episode of respiratory distress and became hypoxic and was placed on nonrebreather with improvement his oxygen saturations. Work-up in the emergency department included a CXR which showed mild pulmonary vascular congestion and cardiomegaly and lab work significant for elevated creatinine of 1.1. Patient was admitted to the hospitalist service with consults to cardiology. While in the emergency department patient's respiratory distress progressed to acute hypercarbic respiratory failure with decompensated respiratory acidosis while on BiPAP and patient became unresponsive and had to be intubated in the emergency department. CCM was sent consulted and patient transferred to ICU. Hospital course to date: 03/14: Patient remains intubated with FiO2 of 70%, CXR shows cardiomegaly with pulmonary edema. We will continue antibiotics until procalcitonin results. Continue diuresis. Wean respiratory support as tolerated. Fentanyl as needed as needed. Patient has sedated however states that he is comfortable. 03/15: Weaning Fi02 as tolerated. No acute events overnight. 03/16: BiPAP qhs, 5l NC while awake, transfer to [facility]. Cardiology will continue IV lasix so will keep rome in place. Transfer to [facility] Hospitalist Physical - Constitutional Vitals: Temp Pulse Resp BP Pulse Ox 98.4 F 77 24 156/102 92 03/16/22 11:38 03/16/22 14:00 03/16/22 14:00 03/16/22 14:00 03/16/22 14:00 General appearance: Present: no acute distress, well-nourished, obese - EENT Eyes: Present: PERRL, EOM intact ENT: clear oral mucosa, dentition normal - Neck Neck: Present: normal ROM - Respiratory Respiratory effort: normal Respiratory: bilateral: CTA, diminished - Cardiovascular Rhythm: regular Heart Sounds: Present: S1 & S2. Absent: systolic murmur, diastolic murmur - Extremities Extremities: no ischemia, pulses intact, pulses symmetrical, No edema, normal temperature, normal color, Full ROM Peripheral Pulses: within normal limits - Abdominal General gastrointestinal: soft, non-tender, non-distended, normal bowel sounds - Integumentary Integumentary: Present: warm, dry - Psychiatric Psychiatric: appropriate mood/affect, cooperative - Neurologic Neurologic: CNII-XII intact, no focal deficits, moves all extremities - Allied Health Allied health notes reviewed: nursing, RT, social work Results - Labs CBC & Chem 7: 03/16/22 08:04 03/16/22 08:04 Labs: Laboratory Last Values WBC 4.7 K/mm3 (4.5-11.0) 03/16/22 08:04 RBC 5.37 M/mm3 (3.65-5.03) H 03/16/22 08:04 Hgb 12.9 gm/dl (11.8-15.2) 03/16/22 08:04 Hct 42.9 % (35.5-45.6) 03/16/22 08:04 MCV 80 fl (84-94) L 03/16/22 08:04 MCH 24 pg (28-32) L 03/16/22 08:04 MCHC 30 % (32-34) L 03/16/22 08:04 RDW 21.1 % (13.2-15.2) H 03/16/22 08:04 Plt Count 179 K/mm3 (140-440) 03/16/22 08:04 Lymph % (Auto) 24.4 % (13.4-35.0) 03/13/22 02:30 [place] % (Auto) 10.1 % (0.0-7.3) H 03/13/22 02:30 Eos % (Auto) 1.5 % (0.0-4.3) 03/13/22 02:30 Baso % (Auto) 0.4 % (0.0-1.8) 03/13/22 02:30 Lymph # (Auto) 1.6 K/mm3 (1.2-5.4) 03/13/22 02:30 [place] # (Auto) 0.7 K/mm3 (0.0-0.8) 03/13/22 02:30 Eos # (Auto) 0.1 K/mm3 (0.0-0.4) 03/13/22 02:30 Baso # (Auto) 0.0 K/mm3 (0.0-0.1) 03/13/22 02:30 Add Manual Diff Complete 03/14/22 Unknown Total Counted 100 03/14/22 Unknown Seg Neutrophils % Briefcase Sewer 03/14/22 Unknown Seg Neuts % (Manual) 89.0 % (40.0-70.0) H 03/14/22 Unknown Band Neutrophils % 3.0 % 03/14/22 Unknown Lymphocytes % (Manual) 4.0 % (13.4-35.0) L 03/14/22 Unknown Reactive Lymphs % (Man) 0 % 03/14/22 Unknown Monocytes % (Manual) 3.0 % (0.0-7.3) 03/14/22 Unknown Eosinophils % (Manual) 1.0 % (0.0-4.3) 03/14/22 Unknown Basophils % (Manual) 0 % (0.0-1.8) 03/14/22 Unknown Metamyelocytes % 0 % 03/14/22 Unknown Myelocytes % 0 % 03/14/22 Unknown Promyelocytes % 0 % 03/14/22 Unknown Blast Cells % 0 % 03/14/22 Unknown Nucleated RBC % Not Reportable 03/14/22 Unknown Seg Neutrophils # 4.3 K/mm3 (1.8-7.7) 03/13/22 02:30 Seg Neutrophils # Man 5.9 K/mm3 (1.8-7.7) 03/14/22 Unknown Band Neutrophils # 0.2 K/mm3 03/14/22 Unknown Lymphocytes # (Manual) 0.3 K/mm3 (1.2-5.4) L 03/14/22 Unknown Abs React Lymphs (Man) 0.0 K/mm3 03/14/22 Unknown Monocytes # (Manual) 0.2 K/mm3 (0.0-0.8) 03/14/22 Unknown Eosinophils # (Manual) 0.1 K/mm3 (0.0-0.4) 03/14/22 Unknown Basophils # (Manual) 0.0 K/mm3 (0.0-0.1) 03/14/22 Unknown Metamyelocytes # 0.0 K/mm3 03/14/22 Unknown Myelocytes # 0.0 K/mm3 03/14/22 Unknown Promyelocytes # 0.0 K/mm3 03/14/22 Unknown Blast Cells # 0.0 K/mm3 03/14/22 Unknown WBC Morphology Not Reportable 03/14/22 Unknown Hypersegmented Neuts Not Reportable 03/14/22 Unknown Hyposegmented Neuts Not Reportable 03/14/22 Unknown Hypogranular Neuts Not Reportable 03/14/22 Unknown Smudge Cells Not Reportable 03/14/22 Unknown Toxic Granulation Not Reportable 03/14/22 Unknown Toxic Vacuolation Not Reportable 03/14/22 Unknown Dohle Bodies Not Reportable 03/14/22 Unknown Pelger-Huet Anomaly Not Reportable 03/14/22 Unknown Jill Rods Not Reportable 03/14/22 Unknown Platelet Estimate Consistent w auto 03/14/22 Unknown Clumped Platelets Not Reportable 03/14/22 Unknown Plt Clumps, EDTA Not Reportable 03/14/22 Unknown Large Platelets Not Reportable 03/14/22 Unknown Giant Platelets Not Reportable 03/14/22 Unknown Platelet Satelliting Not Reportable 03/14/22 Unknown Plt Morphology Comment Not Reportable 03/14/22 Unknown RBC Morphology Not Reportable 03/14/22 Unknown Dimorphic RBCs Not Reportable 03/14/22 Unknown Polychromasia Not Reportable 03/14/22 Unknown Hypochromasia Not Reportable 03/14/22 Unknown Poikilocytosis Not Reportable 03/14/22 Unknown Anisocytosis Not Reportable 03/14/22 Unknown Microcytosis Few 03/14/22 Unknown Macrocytosis Not Reportable 03/14/22 Unknown Spherocytes Not Reportable 03/14/22 Unknown Pappenheimer Bodies Not Reportable 03/14/22 Unknown Sickle Cells Not Reportable 03/14/22 Unknown Target Cells Not Reportable 03/14/22 Unknown Tear Drop Cells Not Reportable 03/14/22 Unknown Ovalocytes Not Reportable 03/14/22 Unknown Helmet Cells Not Reportable 03/14/22 Unknown [place] Bodies Not Reportable 03/14/22 Unknown [place] Rings Not Reportable 03/14/22 Unknown Brent Cells Not Reportable 03/14/22 Unknown Bite Cells Not Reportable 03/14/22 Unknown Crenated Cell Not Reportable 03/14/22 Unknown Elliptocytes Not Reportable 03/14/22 Unknown Acanthocytes (Spur) Not Reportable 03/14/22 Unknown Rouleaux Not Reportable 03/14/22 Unknown Hemoglobin C Crystals Not Reportable 03/14/22 Unknown Schistocytes Not Reportable 03/14/22 Unknown Malaria parasites Not Reportable 03/14/22 Unknown Martell Bodies Not Reportable 03/14/22 Unknown Hem Pathologist Commnt No 03/14/22 Unknown ABG pH 7.511 pH Units (7.350-7.450) H 03/15/22 08:32 ABG pCO2 42.7 mm Hg 03/15/22 08:32 ABG pO2 68.3 mm Hg (80.0-90.0) L 03/15/22 08:32 ABG HCO3 33.4 mmol/L (20.0-26.0) H 03/15/22 08:32 ABG O2 Saturation 95.6 % (95.0-99.0) 03/15/22 08:32 ABG O2 Content 17.5 (0.0-44) 03/15/22 08:32 ABG Base Excess 9.5 mmol/L (-2.0-3.0) H 03/15/22 08:32 ABG Hemoglobin 13.3 gm/dl (14.0-18.0) L 03/15/22 08:32 ABG Carboxyhemoglobin 1.7 % (0.0-5.0) 03/15/22 08:32 ABG Methemoglobin 0.5 % (0.0-1.5) 03/15/22 08:32 Oxyhemoglobin 93.5 % (95.0-99.0) L 03/15/22 08:32 FiO2 75 % 03/15/22 08:32 Sodium 140 mmol/L (137-145) 03/16/22 08:04 Potassium 4.0 mmol/L (3.6-5.0) D 03/16/22 08:04 Chloride 96.8 mmol/L (98-107) L 03/16/22 08:04 Carbon Dioxide 33 mmol/L (22-30) H 03/16/22 08:04 Anion Gap 14 mmol/L 03/16/22 08:04 BUN 20 mg/dL (9-20) 03/16/22 08:04 Creatinine 1.0 mg/dL (0.8-1.3) 03/16/22 08:04 Estimated GFR > 60 ml/min 03/16/22 08:04 BUN/Creatinine Ratio 20 % 03/16/22 08:04 Glucose 86 mg/dL (75-100) 03/16/22 08:04 POC Glucose 95 mg/dL (70-105) 03/16/22 07:36 Calcium 8.8 mg/dL (8.4-10.2) 03/16/22 08:04 Magnesium 2.10 mg/dL (1.7-2.3) 03/15/22 09:14 Total Bilirubin 0.50 mg/dL (0.1-1.2) 03/13/22 02:30 AST 13 units/L (5-40) 03/13/22 02:30 ALT 13 units/L (7-56) 03/13/22 02:30 Alkaline Phosphatase 73 units/L (35-129) 03/13/22 02:30 NT-Pro-B Natriuret Pep 4736 pg/mL (0-900) H 03/13/22 02:30 Total Protein 7.5 g/dL (6.3-8.2) 03/13/22 02:30 Albumin 3.5 g/dL (3.9-5) L 03/13/22 02:30 Albumin/Globulin Ratio 0.9 % 03/13/22 02:30 Lipase 12 units/L (13-60) L 03/13/22 02:30 Procalcitonin 1.23 ng/mL (<0.15) 03/14/22 15:39 Urine Color Yellow (Yellow) 03/13/22 07:20 Urine Turbidity Clear (Clear) 03/13/22 07:20 Urine pH 5.0 (5.0-7.0) 03/13/22 07:20 Ur Specific [place] 1.012 (1.003-1.030) 03/13/22 07:20 Urine Protein 30 mg/dl mg/dL (Negative) 03/13/22 07:20 Urine Glucose (UA) Neg mg/dL (Negative) 03/13/22 07:20 Urine Ketones Neg mg/dL (Negative) 03/13/22 07:20 Urine Blood Neg (Negative) 03/13/22 07:20 Urine Nitrite Neg (Negative) 03/13/22 07:20 Urine Bilirubin Neg (Negative) 03/13/22 07:20 Urine Urobilinogen < 2.0 mg/dL (<2.0) 03/13/22 07:20 Ur Leukocyte Esterase Neg (Negative) 03/13/22 07:20 Urine WBC (Auto) < 1.0 /HPF (0.0-6.0) 03/13/22 07:20 Urine RBC (Auto) < 1.0 /HPF (0.0-6.0) 03/13/22 07:20 Urine Bacteria (Auto) 1+ /HPF (Negative) 03/13/22 07:20 Hyaline Casts 1 /LPF 03/13/22 07:20 Urine Mucus Few /HPF 03/13/22 07:20 Microbiology: Microbiology 03/13/22 09:34 Tracheal Aspirate Sputum Culture - Final 03/13/22 20:08 Tracheal Aspirate Sputum Culture - Final [place]/IV: Voiding Method Indwelling Catheter Active Medications - Current Medications Current Medications: Generic Name Dose Route Start Last Admin Trade Name Freq PRN Reason Stop Dose Admin Acetaminophen 650 mg 03/13/22 05:48 Acetaminophen 325 Mg Tab PO Q4H PRN Pain MILD(1-3)/Fever >100.5/DEJESUS Albuterol 2.5 mg 03/14/22 10:00 03/15/22 17:15 Albuterol 2.5 Mg/3 Ml Nebu IH 2.5 mg Q3H PRN Administration Wheezing Amlodipine Besylate 5 mg 03/16/22 13:00 03/16/22 12:30 Amlodipine 5 Mg Tab PO 5 mg QDAY GERRI Administration Dextrose 0 ml 03/13/22 05:48 Dextrose 50% In Water (25gm) 50 Ml Syringe IV Q30MIN PRN Hypoglycemia Protocol Famotidine 20 mg 03/16/22 10:00 03/16/22 09:43 Famotidine 20 Mg Tab PO 20 mg QDAY GERRI Administration Furosemide 40 mg 03/13/22 18:00 03/16/22 05:14 Furosemide 40 Mg/4 Ml Inj IV 40 mg 0600,1800 GERRI Administration Heparin Sodium (Porcine) 5,000 unit 03/13/22 08:00 03/16/22 09:43 Heparin 5,000 Unit/1 Ml Vial SUB-Q 5,000 unit Q8H GERRI Administration Hydralazine HCl 10 mg 03/13/22 16:56 03/16/22 09:43 Hydralazine 20 Mg/1 Ml Inj IV 10 mg Q3H PRN Administration Hypertension Insulin Human Lispro 0 unit 03/16/22 11:30 03/16/22 11:23 Insulin Lispro 100 Unit/Ml SUB-Q Not Given ACHS GERRI Protocol Magnesium Hydroxide 30 ml 03/13/22 05:48 Magnesium Hydroxide (Mom) Oral Liqd Udc PO Q4H PRN Constipation Morphine Sulfate 2 mg 03/13/22 05:48 Morphine 2 Mg/1 Ml Inj IV Q4H PRN Pain, Moderate (4-6) Morphine Sulfate 4 mg 03/13/22 05:48 03/15/22 11:42 Morphine 4 Mg/1 Ml Inj IV 4 mg Q4H PRN Administration Pain , Severe (7-10) Nitroglycerin 1 inch 03/13/22 13:00 03/16/22 12:29 Nitroglycerin 2% Oint 1 Gm TP 1 inch TIDNTG GERRI Administration Protocol Ondansetron HCl 4 mg 03/13/22 05:48 Ondansetron 4 Mg/2 Ml Inj IV Q8H PRN Nausea And Vomiting Senna/Docusate Sodium 1 tab 03/16/22 10:00 03/16/22 09:43 Sennosides/Docusate Sodium 8.6/50 Mg Tab PO 1 tab Q12H GERRI Administration Sodium Chloride 10 ml 03/13/22 10:00 03/16/22 09:44 Sodium Chloride 0.9% 10 Ml Flush Syringe IV 10 ml BID GERRI Administration Sodium Chloride 10 ml 03/13/22 05:48 03/15/22 05:06 Sodium Chloride 0.9% 10 Ml Flush Syringe IV 10 ml PRN PRN Administration LINE FLUSH Spironolactone 50 mg 03/13/22 15:00 03/16/22 09:44 Spironolactone 50 Mg Tab PO 50 mg QDAY GERRI Administration Nutrition/Malnutrition Assess - Dietary Evaluation Nutrition/Malnutrition Findings: Nutrition Notes Start: 03/14/22 12:45 Freq: Status: Active Protocol: Document 03/14/22 12:45 MASOUD (Rec: 03/14/22 13:04 MASOUD [id number]) Nutrition Notes Need for Assessment generated from: MD Order,scorer single Initial or Follow up Assessment Current Diagnosis COPD,Diabetes,Hypertension, Respiratory Failure Other Pertinent Diagnosis Encephalopathy, CHF, L-LE Stasis Dermatitis, Abdominal Pain/Nausea. Current Diet TF-Glucerna 1.2 Mart @ 80 ml/hr (since D 03/14). Labs/Tests 03/14: Cl 97.2, BUN 23, Glu 132, Ca 7.6. Pertinent Medications 03/14: Nutritionally unremarkable. Height 6 ft Weight 198.8 kg [place] Body Weight (kg) 80.90 BMI 59.4 Intake Prior to Admission Good Weight change and time frame Pt states not having loss body weight [employer]. Weight Status Morbidly Obese Subjective/Other Information RD consult for skin risk and nutritional intake assessments , and write/manage TF. Pt is currently on Mechanical Ventilation, O2 saturation @ 89%, according to Physical Assessment History notes. Pt has missing teeth, according to Physical Assessment History notes. Pt presents abdominal pain and nausea, according to Physical Assessment History notes. Procedure on 03/13: Intubation and started Mechanical ventilation, well tolerated, according to Procedure notes. TF prescribed and ordered. Pt presents L-LE Stasis Dermatitis, according to Physical Assessment History notes and Admission Documents. Percent of energy/protein needs met: Prescribed TF-Glucerna 1.2 Mart @ 80 ml/hr provides for energy/protein needs (2,300 Kcal/115 g) during LOS, 96% Kcal; 100% AA. Burn Absent Trauma Absent GI Symptoms Nausea,Other Food Allergy No Skin Integrity/Comment L-LE Stasis Dermatitis Current % PO Other Minimum of two criteria No #1 Nutrition Diagnosis Inadequate oral intake Etiology Pt on Mechanical Ventilation. As Evidenced by Signs and Symptoms Pt currently on NPO. Is patient on ventilator? Yes Is Patient Ambulatory and/or Out of Bed No REE-([facility]-confined to bed) 3441.996 Kcal/Kg value to use for calculation 12 Approximate Energy Requirements Using 2386 kcal/Kg Calculation Used for Recommendations Kcal/kg Additional Notes Protein: 0.8-1 g/Kg AdjBW; 112 -140 g/day. Fluids: 1 ml/Kcal, or as per MD. Nutrition Intervention Nutrition Support: Start TF-Glucerna 1.2 Mart @ 80 ml/hr. Flush: 140 ml water Q 4 hr, or as per MD. Kcal 2,300 Protein (gm) 115 Carbohydrates (gm) 219 Fat (gm) 115 Fluid (mL) 1,543 Fiber (gm) 31 % RDI: 96% Kcal; 100% AA. Goal #1 Provide at least 75% of energy /protein needs through Enteral Feeding during LOS. Goal #2 Maintain body weight within +/ -3% of admission body weight during LOS. Follow-Up By: 03/16/22 Additional Comments Start monitoring TF tolerance and BM. <KURTIS RICH - Last Filed: 03/17/22 07:41> Assessment and Plan Assessment and plan: I saw and evaluated the patient. Discussed with the nurse practitioner and agree with their findings and plan as documented in this note. Hospitalist Physical - Constitutional Vitals: Temp Pulse Resp BP Pulse Ox 98.2 F 76 18 136/84 98 03/17/22 05:00 03/17/22 06:00 03/17/22 06:00 03/17/22 06:00 03/17/22 06:00 Results - Labs CBC & Chem 7: 03/17/22 05:10 03/17/22 05:10 Labs: Laboratory Last Values WBC 5.0 K/mm3 (4.5-11.0) 03/17/22 05:10 RBC 5.39 M/mm3 (3.65-5.03) H 03/17/22 05:10 Hgb 12.9 gm/dl (11.8-15.2) 03/17/22 05:10 Hct 42.9 % (35.5-45.6) 03/17/22 05:10 MCV 80 fl (84-94) L 03/17/22 05:10 MCH 24 pg (28-32) L 03/17/22 05:10 MCHC 30 % (32-34) L 03/17/22 05:10 RDW 20.7 % (13.2-15.2) H 03/17/22 05:10 Plt Count 183 K/mm3 (140-440) 03/17/22 05:10 Lymph % (Auto) 24.4 % (13.4-35.0) 03/13/22 02:30 [place] % (Auto) 10.1 % (0.0-7.3) H 03/13/22 02:30 Eos % (Auto) 1.5 % (0.0-4.3) 03/13/22 02:30 Baso % (Auto) 0.4 % (0.0-1.8) 03/13/22 02:30 Lymph # (Auto) 1.6 K/mm3 (1.2-5.4) 03/13/22 02:30 [place] # (Auto) 0.7 K/mm3 (0.0-0.8) 03/13/22 02:30 Eos # (Auto) 0.1 K/mm3 (0.0-0.4) 03/13/22 02:30 Baso # (Auto) 0.0 K/mm3 (0.0-0.1) 03/13/22 02:30 Add Manual Diff Complete 03/14/22 Unknown Total Counted 100 03/14/22 Unknown Seg Neutrophils % Briefcase Sewer 03/14/22 Unknown Seg Neuts % (Manual) 89.0 % (40.0-70.0) H 03/14/22 Unknown Band Neutrophils % 3.0 % 03/14/22 Unknown Lymphocytes % (Manual) 4.0 % (13.4-35.0) L 03/14/22 Unknown Reactive Lymphs % (Man) 0 % 03/14/22 Unknown Monocytes % (Manual) 3.0 % (0.0-7.3) 03/14/22 Unknown Eosinophils % (Manual) 1.0 % (0.0-4.3) 03/14/22 Unknown Basophils % (Manual) 0 % (0.0-1.8) 03/14/22 Unknown Metamyelocytes % 0 % 03/14/22 Unknown Myelocytes % 0 % 03/14/22 Unknown Promyelocytes % 0 % 03/14/22 Unknown Blast Cells % 0 % 03/14/22 Unknown Nucleated RBC % Not Reportable 03/14/22 Unknown Seg Neutrophils # 4.3 K/mm3 (1.8-7.7) 03/13/22 02:30 Seg Neutrophils # Man 5.9 K/mm3 (1.8-7.7) 03/14/22 Unknown Band Neutrophils # 0.2 K/mm3 03/14/22 Unknown Lymphocytes # (Manual) 0.3 K/mm3 (1.2-5.4) L 03/14/22 Unknown Abs React Lymphs (Man) 0.0 K/mm3 03/14/22 Unknown Monocytes # (Manual) 0.2 K/mm3 (0.0-0.8) 03/14/22 Unknown Eosinophils # (Manual) 0.1 K/mm3 (0.0-0.4) 03/14/22 Unknown Basophils # (Manual) 0.0 K/mm3 (0.0-0.1) 03/14/22 Unknown Metamyelocytes # 0.0 K/mm3 03/14/22 Unknown Myelocytes # 0.0 K/mm3 03/14/22 Unknown Promyelocytes # 0.0 K/mm3 03/14/22 Unknown Blast Cells # 0.0 K/mm3 03/14/22 Unknown WBC Morphology Not Reportable 03/14/22 Unknown Hypersegmented Neuts Not Reportable 03/14/22 Unknown Hyposegmented Neuts Not Reportable 03/14/22 Unknown Hypogranular Neuts Not Reportable 03/14/22 Unknown Smudge Cells Not Reportable 03/14/22 Unknown Toxic Granulation Not Reportable 03/14/22 Unknown Toxic Vacuolation Not Reportable 03/14/22 Unknown Dohle Bodies Not Reportable 03/14/22 Unknown Pelger-Huet Anomaly Not Reportable 03/14/22 Unknown Jill Rods Not Reportable 03/14/22 Unknown Platelet Estimate Consistent w auto 03/14/22 Unknown Clumped Platelets Not Reportable 03/14/22 Unknown Plt Clumps, EDTA Not Reportable 03/14/22 Unknown Large Platelets Not Reportable 03/14/22 Unknown Giant Platelets Not Reportable 03/14/22 Unknown Platelet Satelliting Not Reportable 03/14/22 Unknown Plt Morphology Comment Not Reportable 03/14/22 Unknown RBC Morphology Not Reportable 03/14/22 Unknown Dimorphic RBCs Not Reportable 03/14/22 Unknown Polychromasia Not Reportable 03/14/22 Unknown Hypochromasia Not Reportable 03/14/22 Unknown Poikilocytosis Not Reportable 03/14/22 Unknown Anisocytosis Not Reportable 03/14/22 Unknown Microcytosis Few 03/14/22 Unknown Macrocytosis Not Reportable 03/14/22 Unknown Spherocytes Not Reportable 03/14/22 Unknown Pappenheimer Bodies Not Reportable 03/14/22 Unknown Sickle Cells Not Reportable 03/14/22 Unknown Target Cells Not Reportable 03/14/22 Unknown Tear Drop Cells Not Reportable 03/14/22 Unknown Ovalocytes Not Reportable 03/14/22 Unknown Helmet Cells Not Reportable 03/14/22 Unknown [place] Bodies Not Reportable 03/14/22 Unknown [place] Rings Not Reportable 03/14/22 Unknown Brent Cells Not Reportable 03/14/22 Unknown Bite Cells Not Reportable 03/14/22 Unknown Crenated Cell Not Reportable 03/14/22 Unknown Elliptocytes Not Reportable 03/14/22 Unknown Acanthocytes (Spur) Not Reportable 03/14/22 Unknown Rouleaux Not Reportable 03/14/22 Unknown Hemoglobin C Crystals Not Reportable 03/14/22 Unknown Schistocytes Not Reportable 03/14/22 Unknown Malaria parasites Not Reportable 03/14/22 Unknown Martell Bodies Not Reportable 03/14/22 Unknown Hem Pathologist Commnt No 03/14/22 Unknown ABG pH 7.511 pH Units (7.350-7.450) H 03/15/22 08:32 ABG pCO2 42.7 mm Hg 03/15/22 08:32 ABG pO2 68.3 mm Hg (80.0-90.0) L 03/15/22 08:32 ABG HCO3 33.4 mmol/L (20.0-26.0) H 03/15/22 08:32 ABG O2 Saturation 95.6 % (95.0-99.0) 03/15/22 08:32 ABG O2 Content 17.5 (0.0-44) 03/15/22 08:32 ABG Base Excess 9.5 mmol/L (-2.0-3.0) H 03/15/22 08:32 ABG Hemoglobin 13.3 gm/dl (14.0-18.0) L 03/15/22 08:32 ABG Carboxyhemoglobin 1.7 % (0.0-5.0) 03/15/22 08:32 ABG Methemoglobin 0.5 % (0.0-1.5) 03/15/22 08:32 Oxyhemoglobin 93.5 % (95.0-99.0) L 03/15/22 08:32 FiO2 75 % 03/15/22 08:32 Sodium 138 mmol/L (137-145) 03/17/22 05:10 Potassium 3.7 mmol/L (3.6-5.0) 03/17/22 05:10 Chloride 97.0 mmol/L (98-107) L 03/17/22 05:10 Carbon Dioxide 35 mmol/L (22-30) H 03/17/22 05:10 Anion Gap 10 mmol/L 03/17/22 05:10 BUN 20 mg/dL (9-20) 03/17/22 05:10 Creatinine 0.9 mg/dL (0.8-1.3) 03/17/22 05:10 Estimated GFR > 60 ml/min 03/17/22 05:10 BUN/Creatinine Ratio 22 % 03/17/22 05:10 Glucose 109 mg/dL (75-100) H 03/17/22 05:10 POC Glucose 112 mg/dL (70-105) H 03/16/22 16:10 Calcium 8.7 mg/dL (8.4-10.2) 03/17/22 05:10 Magnesium 2.10 mg/dL (1.7-2.3) 03/15/22 09:14 Total Bilirubin 0.50 mg/dL (0.1-1.2) 03/13/22 02:30 AST 13 units/L (5-40) 03/13/22 02:30 ALT 13 units/L (7-56) 03/13/22 02:30 Alkaline Phosphatase 73 units/L (35-129) 03/13/22 02:30 NT-Pro-B Natriuret Pep 4736 pg/mL (0-900) H 03/13/22 02:30 Total Protein 7.5 g/dL (6.3-8.2) 03/13/22 02:30 Albumin 3.5 g/dL (3.9-5) L 03/13/22 02:30 Albumin/Globulin Ratio 0.9 % 03/13/22 02:30 Lipase 12 units/L (13-60) L 03/13/22 02:30 Procalcitonin 1.23 ng/mL (<0.15) 03/14/22 15:39 Urine Color Yellow (Yellow) 03/13/22 07:20 Urine Turbidity Clear (Clear) 03/13/22 07:20 Urine pH 5.0 (5.0-7.0) 03/13/22 07:20 Ur Specific [place] 1.012 (1.003-1.030) 03/13/22 07:20 Urine Protein 30 mg/dl mg/dL (Negative) 03/13/22 07:20 Urine Glucose (UA) Neg mg/dL (Negative) 03/13/22 07:20 Urine Ketones Neg mg/dL (Negative) 03/13/22 07:20 Urine Blood Neg (Negative) 03/13/22 07:20 Urine Nitrite Neg (Negative) 03/13/22 07:20 Urine Bilirubin Neg (Negative) 03/13/22 07:20 Urine Urobilinogen < 2.0 mg/dL (<2.0) 03/13/22 07:20 Ur Leukocyte Esterase Neg (Negative) 03/13/22 07:20 Urine WBC (Auto) < 1.0 /HPF (0.0-6.0) 03/13/22 07:20 Urine RBC (Auto) < 1.0 /HPF (0.0-6.0) 03/13/22 07:20 Urine Bacteria (Auto) 1+ /HPF (Negative) 03/13/22 07:20 Hyaline Casts 1 /LPF 03/13/22 07:20 Urine Mucus Few /HPF 03/13/22 07:20 Microbiology: Microbiology 03/13/22 09:34 Tracheal Aspirate Sputum Culture - Final 03/13/22 20:08 Tracheal Aspirate Sputum Culture - Final [place]/IV: Voiding Method Indwelling Catheter Active Medications - Current Medications Current Medications: Generic Name Dose Route Start Last Admin Trade Name Freq PRN Reason Stop Dose Admin Acetaminophen 650 mg 03/13/22 05:48 Acetaminophen 325 Mg Tab PO Q4H PRN Pain MILD(1-3)/Fever >100.5/DEJESUS Albuterol 2.5 mg 03/14/22 10:00 03/15/22 17:15 Albuterol 2.5 Mg/3 Ml Nebu IH 2.5 mg Q3H PRN Administration Wheezing Amlodipine Besylate 5 mg 03/16/22 13:00 03/16/22 12:30 Amlodipine 5 Mg Tab PO 5 mg QDAY GERRI Administration Dextrose 0 ml 03/13/22 05:48 Dextrose 50% In Water (25gm) 50 Ml Syringe IV Q30MIN PRN Hypoglycemia Protocol Famotidine 20 mg 03/16/22 10:00 03/16/22 09:43 Famotidine 20 Mg Tab PO 20 mg QDAY GERRI Administration Furosemide 40 mg 03/13/22 18:00 03/17/22 05:13 Furosemide 40 Mg/4 Ml Inj IV 40 mg 0600,1800 GERRI Administration Heparin Sodium (Porcine) 5,000 unit 03/13/22 08:00 03/16/22 23:09 Heparin 5,000 Unit/1 Ml Vial SUB-Q Not Given Q8H [facility] Hydralazine HCl 10 mg 03/13/22 16:56 03/16/22 09:43 Hydralazine 20 Mg/1 Ml Inj IV 10 mg Q3H PRN Administration Hypertension Insulin Human Lispro 0 unit 03/16/22 11:30 03/16/22 22:43 Insulin Lispro 100 Unit/Ml SUB-Q Not Given ACHS [facility] Protocol Magnesium Hydroxide 30 ml 03/13/22 05:48 Magnesium Hydroxide (Mom) Oral Liqd Udc PO Q4H PRN Constipation Morphine Sulfate 2 mg 03/13/22 05:48 Morphine 2 Mg/1 Ml Inj IV Q4H PRN Pain, Moderate (4-6) Morphine Sulfate 4 mg 03/13/22 05:48 03/15/22 11:42 Morphine 4 Mg/1 Ml Inj IV 4 mg Q4H PRN Administration Pain , Severe (7-10) Nitroglycerin 1 inch 03/13/22 13:00 03/17/22 05:13 Nitroglycerin 2% Oint 1 Gm TP 1 inch TIDNTG [facility] Administration Protocol Ondansetron HCl 4 mg 03/13/22 05:48 Ondansetron 4 Mg/2 Ml Inj IV Q8H PRN Nausea And Vomiting Senna/Docusate Sodium 1 tab 03/16/22 10:00 03/16/22 22:34 Sennosides/Docusate Sodium 8.6/50 Mg Tab PO 1 tab Q12H GERRI Administration Sodium Chloride 10 ml 03/13/22 10:00 03/16/22 22:35 Sodium Chloride 0.9% 10 Ml Flush Syringe IV 10 ml BID GERRI Administration Sodium Chloride 10 ml 03/13/22 05:48 03/15/22 05:06 Sodium Chloride 0.9% 10 Ml Flush Syringe IV 10 ml PRN PRN Administration LINE FLUSH Spironolactone 50 mg 03/13/22 15:00 03/16/22 09:44 Spironolactone 50 Mg Tab PO 50 mg QDAY GERRI Administration Nutrition/Malnutrition Assess - Dietary Evaluation Nutrition/Malnutrition Findings: Nutrition Notes Start: 03/14/22 12:45 Freq: Status: Active Protocol: Document 03/16/22 15:27 MASOUD (Rec: 03/16/22 15:38 MASOUD [id number]) Nutrition Notes Initial or Follow up Brief Note Current Diagnosis COPD,Diabetes,Hypertension, Respiratory Failure Other Pertinent Diagnosis Encephalopathy, CHF, L-LE Stasis Dermatitis, Abdominal Pain/Nausea. Current Diet Consistent Carbohydrates Diet (since L 03/16). Height 6 ft Weight 196 kg [place] Body Weight (kg) 80.90 BMI 58.6 Weight change and time frame 2.8 Kg body weight loss reported in 2 days. Weight Status Morbidly Obese Subjective/Other Information RD consult for routine F/U on TF tolerance/continuation. Diet advanced to PO, Bedside Swallow Screen passed, according to RN notes. No reports available on Pt's PO intake of meals at the time , will assess at F/U. RN note on 03/16/22 09:07: 0700 Report completed. Assessment on patient completed. 0852 Reviewed patient with CABLE CUTTER AND SWAGER. Bedside swallow completed with pass. Diet to be ordered. 1120 NGT removed per orders. Reviewed rome catheter with CABLE CUTTER AND SWAGER. Pt is on Nasal Cannula, O2 saturation @ 92%, according to Physical Assessment History notes. Percent of energy/protein needs met: Prescribed Consistent Carbohydrates Diet provides for energy/protein needs (2, 061 Kcal/91 g) during LOS. #1 Nutrition Diagnosis Inadequate oral intake Diagnosis Progress(for reassessment Resolved documentation) Is patient on ventilator? No Is Patient Ambulatory and/or Out of Bed No REE-([facility]-confined to bed) 3408.432 Kcal/Kg value to use for calculation 12 Approximate Energy Requirements Using 2352 kcal/Kg Calculation Used for Recommendations Kcal/kg Additional Notes Protein: 0.8-1 g/Kg AdjBW; 112 -140 g/day. Fluids: 1 ml/Kcal, or as per MD. Nutrition Intervention Change Diet Order: Advance to Consistent Carbohydrates Diet as tolerated. Nutrition Support: Discontinued. Goal #1 Adjust the dietary intervention to better serve Pt's needs and clinical conditions during LOS. Goal #2 Maintain body weight within +/ -3% of admission body weight during LOS. Follow-Up By: 03/23/22 Additional Comments Start monitoring food tolerance, %PO intake of meals , and BM.
[2022-03-17] MEDS: NITROGLYCERIN 2% OINT 1 GM TP SCH ×3 (05:13→18:14)
[2022-03-17] MEDS: FUROSEMIDE 40 MG/4 ML INJ IV SCH ×2 (05:13→18:13)
[2022-03-17 05:57] LABS: Mean Corpuscular HGB Conc 30 % (32-34); Mean Corpuscular Volume 80 fl (84-94); Platelet Count 183 K/mm3 (140-440); Red Blood Count 5.39 M/mm3 (3.65-5.03)
[2022-03-17 06:02] LABS: Hematocrit 42.9 % (35.5-45.6); Hemoglobin 12.9 gm/dl (11.8-15.2); Red Cell Distribution Width 20.7 % (13.2-15.2)
[2022-03-17 06:03] LABS: BUN/Creatinine Ratio 22; Blood Urea Nitrogen 20 mg/dL (9-20); Calcium 8.7 mg/dL (8.4-10.2); Hemolysis Index 4
[2022-03-17] MEDS: INSULIN LISPRO 100 UNIT/ML SUB-Q SCH ×4 (07:43→22:11)
--- NOTE | 2022-03-17 08:05 | Progress Note ---
Assessment and Plan Assessment and plan: Interval history: This is a 56-year-old male with CHF, DM, HTN, MO presents to the emergency department on 03/13 with complaints of diffuse abdominal pain which started earlier in the day with nausea and intermittent shortness of breath on exertion. In the emergency department patient had an episode of respiratory distress and became hypoxic and was placed on nonrebreather with improvement his oxygen saturations. Work-up in the emergency department included a CXR which showed mild pulmonary vascular congestion and cardiomegaly and lab work significant for elevated creatinine of 1.1. Patient was admitted to the hospitalist service with consults to cardiology. While in the emergency department patient's respiratory distress progressed to acute hypercarbic respiratory failure with decompensated respiratory acidosis while on BiPAP and patient became unresponsive and had to be intubated in the emergency department. [facility] was sent consulted and patient transferred to ICU. Hospital course to date: 03/14: Patient remains intubated with FiO2 of 70%, CXR shows cardiomegaly with pulmonary edema. We will continue antibiotics until procalcitonin results. Continue diuresis. Wean respiratory support as tolerated. Fentanyl as needed as needed. Patient has sedated however states that he is comfortable. 03/15: Weaning Fi02 as tolerated. No acute events overnight. 03/16: BiPAP qhs, 5l NC while awake, transfer to [facility]. Cardiology will continue IV lasix so will keep rome in place. Transfer to [facility] 03/17: currently on 3 l/min nc. awake, resting comfortably. Cardiology believes ECHO shows normal EF but visualization difficult. Agree with recommended cardiac MRI OP. Added lisinopril for GDMT HF management. Net fluid balance -4100 cc yes terday. Continue additional diuresis today. Plan for potential d/c tomorrow. 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 OHS versus AGUS -CCM consulted, appreciate recommendations -Intubated 03/13 with 7.5 OETT at 24 cm at lip, extubated 03/15 -Bipap qhs -NC during day -Pulmonary hygiene -SPO2 monitoring GI: Morbid obesity -24 hours -5900 mL -PPI -CC diet -BR: Senokat -CT abdomen/pelvis with contrast showed no acute findings, moderate cardi omegaly, diverticulosis without acute inflammation, degenerative changes of the lumbar spine present with straightening of lordosis and moderate loss of intervertebral disc space at L4-5 and L5 -S1, vacuum disc phenomenon present : NAD -Nephrology consulted, appreciate recommendations -Strict intake and output -Renally dose medications -Avoid nephrotoxic medications -Daily weights -Trend BMP ID: Lower extremity cellulites -Antibiotic therapy with Rocephin -Procal 1.23 -f/u blood culture -Monitor WBC and temperature curve Endo: h/o DM -Avoid hypoglycemia -SSI -Accu-Cheks ACHS Heme: NAD -Trend CBC -heparin subq -Transfuse hemoglobin less than 7 -Monitor for signs of bleeding -SCDs to BLE while in bed History Interval history: Resting comfortably on bedside encounter today. Patient states that respiratory status is improved. No complaints otherwise. Currently saturating 91 to 92% on 3l/min nasal cannula. Hospitalist Physical - Physical exam Narrative exam: General appearance: Present: no acute distress, well-nourished, obese - EENT Eyes: Present: PERRL, EOM intact ENT: clear oral mucosa, dentition normal - Neck Neck: Present: normal ROM - Respiratory Respiratory effort: normal Respiratory: bilateral: CTA, diminished - Cardiovascular Rhythm: regular Heart Sounds: Present: S1 & S2. Absent: systolic murmur, diastolic murmur - Extremities Extremities: no ischemia, pulses intact, pulses symmetrical, No edema, normal temperature, normal color, Full ROM Peripheral Pulses: within normal limits - Abdominal General gastrointestinal: soft, non-tender, non-distended, normal bowel sounds - Integumentary Integumentary: Present: warm, dry - Psychiatric Psychiatric: appropriate mood/affect, cooperative - Neurologic Neurologic: CNII-XII intact, no focal deficits, moves all extremities - Allied Health Allied health notes reviewed: nursing, RT, social work - Constitutional Vitals: Temp Pulse Resp BP Pulse Ox 98.2 F 67 18 114/74 97 03/17/22 05:00 03/17/22 07:00 03/17/22 07:00 03/17/22 07:00 03/17/22 07:00 General appearance: Present: no acute distress, well-nourished, obese Results - Labs CBC & Chem 7: 03/17/22 05:10 03/17/22 05:10 Labs: Laboratory Last Values WBC 5.0 K/mm3 (4.5-11.0) 03/17/22 05:10 RBC 5.39 M/mm3 (3.65-5.03) H 03/17/22 05:10 Hgb 12.9 gm/dl (11.8-15.2) 03/17/22 05:10 Hct 42.9 % (35.5-45.6) 03/17/22 05:10 MCV 80 fl (84-94) L 03/17/22 05:10 MCH 24 pg (28-32) L 03/17/22 05:10 MCHC 30 % (32-34) L 03/17/22 05:10 RDW 20.7 % (13.2-15.2) H 03/17/22 05:10 Plt Count 183 K/mm3 (140-440) 03/17/22 05:10 Lymph % (Auto) 24.4 % (13.4-35.0) 03/13/22 02:30 [place] % (Auto) 10.1 % (0.0-7.3) H 03/13/22 02:30 Eos % (Auto) 1.5 % (0.0-4.3) 03/13/22 02:30 Baso % (Auto) 0.4 % (0.0-1.8) 03/13/22 02:30 Lymph # (Auto) 1.6 K/mm3 (1.2-5.4) 03/13/22 02:30 [place] # (Auto) 0.7 K/mm3 (0.0-0.8) 03/13/22 02:30 Eos # (Auto) 0.1 K/mm3 (0.0-0.4) 03/13/22 02:30 Baso # (Auto) 0.0 K/mm3 (0.0-0.1) 03/13/22 02:30 Add Manual Diff Complete 03/14/22 Unknown Total Counted 100 03/14/22 Unknown Seg Neutrophils % Tire Builder Operator 03/14/22 Unknown Seg Neuts % (Manual) 89.0 % (40.0-70.0) H 03/14/22 Unknown Band Neutrophils % 3.0 % 03/14/22 Unknown Lymphocytes % (Manual) 4.0 % (13.4-35.0) L 03/14/22 Unknown Reactive Lymphs % (Man) 0 % 03/14/22 Unknown Monocytes % (Manual) 3.0 % (0.0-7.3) 03/14/22 Unknown Eosinophils % (Manual) 1.0 % (0.0-4.3) 03/14/22 Unknown Basophils % (Manual) 0 % (0.0-1.8) 03/14/22 Unknown Metamyelocytes % 0 % 03/14/22 Unknown Myelocytes % 0 % 03/14/22 Unknown Promyelocytes % 0 % 03/14/22 Unknown Blast Cells % 0 % 03/14/22 Unknown Nucleated RBC % Not Reportable 03/14/22 Unknown Seg Neutrophils # 4.3 K/mm3 (1.8-7.7) 03/13/22 02:30 Seg Neutrophils # Man 5.9 K/mm3 (1.8-7.7) 03/14/22 Unknown Band Neutrophils # 0.2 K/mm3 03/14/22 Unknown Lymphocytes # (Manual) 0.3 K/mm3 (1.2-5.4) L 03/14/22 Unknown Abs React Lymphs (Man) 0.0 K/mm3 03/14/22 Unknown Monocytes # (Manual) 0.2 K/mm3 (0.0-0.8) 03/14/22 Unknown Eosinophils # (Manual) 0.1 K/mm3 (0.0-0.4) 03/14/22 Unknown Basophils # (Manual) 0.0 K/mm3 (0.0-0.1) 03/14/22 Unknown Metamyelocytes # 0.0 K/mm3 03/14/22 Unknown Myelocytes # 0.0 K/mm3 03/14/22 Unknown Promyelocytes # 0.0 K/mm3 03/14/22 Unknown Blast Cells # 0.0 K/mm3 03/14/22 Unknown WBC Morphology Not Reportable 03/14/22 Unknown Hypersegmented Neuts Not Reportable 03/14/22 Unknown Hyposegmented Neuts Not Reportable 03/14/22 Unknown Hypogranular Neuts Not Reportable 03/14/22 Unknown Smudge Cells Not Reportable 03/14/22 Unknown Toxic Granulation Not Reportable 03/14/22 Unknown Toxic Vacuolation Not Reportable 03/14/22 Unknown Dohle Bodies Not Reportable 03/14/22 Unknown Pelger-Huet Anomaly Not Reportable 03/14/22 Unknown Jill Rods Not Reportable 03/14/22 Unknown Platelet Estimate Consistent w auto 03/14/22 Unknown Clumped Platelets Not Reportable 03/14/22 Unknown Plt Clumps, EDTA Not Reportable 03/14/22 Unknown Large Platelets Not Reportable 03/14/22 Unknown Giant Platelets Not Reportable 03/14/22 Unknown Platelet Satelliting Not Reportable 03/14/22 Unknown Plt Morphology Comment Not Reportable 03/14/22 Unknown RBC Morphology Not Reportable 03/14/22 Unknown Dimorphic RBCs Not Reportable 03/14/22 Unknown Polychromasia Not Reportable 03/14/22 Unknown Hypochromasia Not Reportable 03/14/22 Unknown Poikilocytosis Not Reportable 03/14/22 Unknown Anisocytosis Not Reportable 03/14/22 Unknown Microcytosis Few 03/14/22 Unknown Macrocytosis Not Reportable 03/14/22 Unknown Spherocytes Not Reportable 03/14/22 Unknown Pappenheimer Bodies Not Reportable 03/14/22 Unknown Sickle Cells Not Reportable 03/14/22 Unknown Target Cells Not Reportable 03/14/22 Unknown Tear Drop Cells Not Reportable 03/14/22 Unknown Ovalocytes Not Reportable 03/14/22 Unknown Helmet Cells Not Reportable 03/14/22 Unknown [place] Bodies Not Reportable 03/14/22 Unknown [place] Rings Not Reportable 03/14/22 Unknown [place] Cells Not Reportable 03/14/22 Unknown Bite Cells Not Reportable 03/14/22 Unknown Crenated Cell Not Reportable 03/14/22 Unknown Elliptocytes Not Reportable 03/14/22 Unknown Acanthocytes (Spur) Not Reportable 03/14/22 Unknown Rouleaux Not Reportable 03/14/22 Unknown Hemoglobin C Crystals Not Reportable 03/14/22 Unknown Schistocytes Not Reportable 03/14/22 Unknown Malaria parasites Not Reportable 03/14/22 Unknown Martell Bodies Not Reportable 03/14/22 Unknown Hem Pathologist Commnt No 03/14/22 Unknown ABG pH 7.511 pH Units (7.350-7.450) H 03/15/22 08:32 ABG pCO2 42.7 mm Hg 03/15/22 08:32 ABG pO2 68.3 mm Hg (80.0-90.0) L 03/15/22 08:32 ABG HCO3 33.4 mmol/L (20.0-26.0) H 03/15/22 08:32 ABG O2 Saturation 95.6 % (95.0-99.0) 03/15/22 08:32 ABG O2 Content 17.5 (0.0-44) 03/15/22 08:32 ABG Base Excess 9.5 mmol/L (-2.0-3.0) H 03/15/22 08:32 ABG Hemoglobin 13.3 gm/dl (14.0-18.0) L 03/15/22 08:32 ABG Carboxyhemoglobin 1.7 % (0.0-5.0) 03/15/22 08:32 ABG Methemoglobin 0.5 % (0.0-1.5) 03/15/22 08:32 Oxyhemoglobin 93.5 % (95.0-99.0) L 03/15/22 08:32 FiO2 75 % 03/15/22 08:32 Sodium 138 mmol/L (137-145) 03/17/22 05:10 Potassium 3.7 mmol/L (3.6-5.0) 03/17/22 05:10 Chloride 97.0 mmol/L (98-107) L 03/17/22 05:10 Carbon Dioxide 35 mmol/L (22-30) H 03/17/22 05:10 Anion Gap 10 mmol/L 03/17/22 05:10 BUN 20 mg/dL (9-20) 03/17/22 05:10 Creatinine 0.9 mg/dL (0.8-1.3) 03/17/22 05:10 Estimated GFR > 60 ml/min 03/17/22 05:10 BUN/Creatinine Ratio 22 % 03/17/22 05:10 Glucose 109 mg/dL (75-100) H 03/17/22 05:10 POC Glucose 112 mg/dL (70-105) H 03/16/22 16:10 Calcium 8.7 mg/dL (8.4-10.2) 03/17/22 05:10 Magnesium 2.10 mg/dL (1.7-2.3) 03/15/22 09:14 Total Bilirubin 0.50 mg/dL (0.1-1.2) 03/13/22 02:30 AST 13 units/L (5-40) 03/13/22 02:30 ALT 13 units/L (7-56) 03/13/22 02:30 Alkaline Phosphatase 73 units/L (35-129) 03/13/22 02:30 NT-Pro-B Natriuret Pep 4736 pg/mL (0-900) H 03/13/22 02:30 Total Protein 7.5 g/dL (6.3-8.2) 03/13/22 02:30 Albumin 3.5 g/dL (3.9-5) L 03/13/22 02:30 Albumin/Globulin Ratio 0.9 % 03/13/22 02:30 Lipase 12 units/L (13-60) L 03/13/22 02:30 Procalcitonin 1.23 ng/mL (<0.15) 03/14/22 15:39 Urine Color Yellow (Yellow) 03/13/22 07:20 Urine Turbidity Clear (Clear) 03/13/22 07:20 Urine pH 5.0 (5.0-7.0) 03/13/22 07:20 Ur Specific [place] 1.012 (1.003-1.030) 03/13/22 07:20 Urine Protein 30 mg/dl mg/dL (Negative) 03/13/22 07:20 Urine Glucose (UA) Neg mg/dL (Negative) 03/13/22 07:20 Urine Ketones Neg mg/dL (Negative) 03/13/22 07:20 Urine Blood Neg (Negative) 03/13/22 07:20 Urine Nitrite Neg (Negative) 03/13/22 07:20 Urine Bilirubin Neg (Negative) 03/13/22 07:20 Urine Urobilinogen < 2.0 mg/dL (<2.0) 03/13/22 07:20 Ur Leukocyte Esterase Neg (Negative) 03/13/22 07:20 Urine WBC (Auto) < 1.0 /HPF (0.0-6.0) 03/13/22 07:20 Urine RBC (Auto) < 1.0 /HPF (0.0-6.0) 03/13/22 07:20 Urine Bacteria (Auto) 1+ /HPF (Negative) 03/13/22 07:20 Hyaline Casts 1 /LPF 03/13/22 07:20 Urine Mucus Few /HPF 03/13/22 07:20 Microbiology: Microbiology 03/13/22 09:34 Tracheal Aspirate Sputum Culture - Final 03/13/22 20:08 Tracheal Aspirate Sputum Culture - Final [place]/IV: Voiding Method Indwelling Catheter Active Medications - Current Medications Current Medications: Generic Name Dose Route Start Last Admin Trade Name Freq PRN Reason Stop Dose Admin Acetaminophen 650 mg 03/13/22 05:48 Acetaminophen 325 Mg Tab PO Q4H PRN Pain MILD(1-3)/Fever >100.5/DEJESUS Albuterol 2.5 mg 03/14/22 10:00 03/15/22 17:15 Albuterol 2.5 Mg/3 Ml Nebu IH 2.5 mg Q3H PRN Administration Wheezing Amlodipine Besylate 5 mg 03/16/22 13:00 03/16/22 12:30 Amlodipine 5 Mg Tab PO 5 mg QDAY GERRI Administration Dextrose 0 ml 03/13/22 05:48 Dextrose 50% In Water (25gm) 50 Ml Syringe IV Q30MIN PRN Hypoglycemia Protocol Famotidine 20 mg 03/16/22 10:00 03/16/22 09:43 Famotidine 20 Mg Tab PO 20 mg QDAY GERRI Administration Furosemide 40 mg 03/13/22 18:00 03/17/22 05:13 Furosemide 40 Mg/4 Ml Inj IV 40 mg 0600,1800 GERRI Administration Heparin Sodium (Porcine) 5,000 unit 03/13/22 08:00 03/16/22 23:09 Heparin 5,000 Unit/1 Ml Vial SUB-Q Not Given Q8H GERRI Hydralazine HCl 10 mg 03/13/22 16:56 03/16/22 09:43 Hydralazine 20 Mg/1 Ml Inj IV 10 mg Q3H PRN Administration Hypertension Insulin Human Lispro 0 unit 03/16/22 11:30 03/17/22 07:43 Insulin Lispro 100 Unit/Ml SUB-Q Not Given ACHS GERRI Protocol Magnesium Hydroxide 30 ml 03/13/22 05:48 Magnesium Hydroxide (Mom) Oral Liqd Udc PO Q4H PRN Constipation Morphine Sulfate 2 mg 03/13/22 05:48 Morphine 2 Mg/1 Ml Inj IV Q4H PRN Pain, Moderate (4-6) Morphine Sulfate 4 mg 03/13/22 05:48 03/15/22 11:42 Morphine 4 Mg/1 Ml Inj IV 4 mg Q4H PRN Administration Pain , Severe (7-10) Nitroglycerin 1 inch 03/13/22 13:00 03/17/22 05:13 Nitroglycerin 2% Oint 1 Gm TP 1 inch TIDNTG GERRI Administration Protocol Ondansetron HCl 4 mg 03/13/22 05:48 Ondansetron 4 Mg/2 Ml Inj IV Q8H PRN Nausea And Vomiting Senna/Docusate Sodium 1 tab 03/16/22 10:00 03/16/22 22:34 Sennosides/Docusate Sodium 8.6/50 Mg Tab PO 1 tab Q12H GERRI Administration Sodium Chloride 10 ml 03/13/22 10:00 03/16/22 22:35 Sodium Chloride 0.9% 10 Ml Flush Syringe IV 10 ml BID GERRI Administration Sodium Chloride 10 ml 03/13/22 05:48 03/15/22 05:06 Sodium Chloride 0.9% 10 Ml Flush Syringe IV 10 ml PRN PRN Administration LINE FLUSH Spironolactone 50 mg 03/13/22 15:00 03/16/22 09:44 Spironolactone 50 Mg Tab PO 50 mg QDAY GERRI Administration Nutrition/Malnutrition Assess - Dietary Evaluation Nutrition/Malnutrition Findings: Nutrition Notes Start: 03/14/22 12:45 Freq: Status: Active Protocol: Document 03/16/22 15:27 MASOUD (Rec: 03/16/22 15:38 MASOUD [id number]) Nutrition Notes Initial or Follow up Brief Note Current Diagnosis COPD,Diabetes,Hypertension, Respiratory Failure Other Pertinent Diagnosis Encephalopathy, CHF, L-LE Stasis Dermatitis, Abdominal Pain/Nausea. Current Diet Consistent Carbohydrates Diet (since L 03/16). Height 6 ft Weight 196 kg [place] Body Weight (kg) 80.90 BMI 58.6 Weight change and time frame 2.8 Kg body weight loss reported in 2 days. Weight Status Morbidly Obese Subjective/Other Information RD consult for routine F/U on TF tolerance/continuation. Diet advanced to PO, Bedside Swallow Screen passed, according to RN notes. No reports available on Pt's PO intake of meals at the time , will assess at F/U. RN note on 03/16/22 09:07: 0700 Report completed. Assessment on patient completed. 0852 Reviewed patient with CLINICAL OUTCOMES MANAGER. Bedside swallow completed with pass. Diet to be ordered. 1120 NGT removed per orders. Reviewed rome catheter with CLINICAL OUTCOMES MANAGER. Pt is on Nasal Cannula, O2 saturation @ 92%, according to Physical Assessment History notes. Percent of energy/protein needs met: Prescribed Consistent Carbohydrates Diet provides for energy/protein needs (2, 061 Kcal/91 g) during LOS. #1 Nutrition Diagnosis Inadequate oral intake Diagnosis Progress(for reassessment Resolved documentation) Is patient on ventilator? No Is Patient Ambulatory and/or Out of Bed No REE-([facility]-confined to bed) 3408.432 Kcal/Kg value to use for calculation 12 Approximate Energy Requirements Using 2352 kcal/Kg Calculation Used for Recommendations Kcal/kg Additional Notes Protein: 0.8-1 g/Kg AdjBW; 112 -140 g/day. Fluids: 1 ml/Kcal, or as per MD. Nutrition Intervention Change Diet Order: Advance to Consistent Carbohydrates Diet as tolerated. Nutrition Support: Discontinued. Goal #1 Adjust the dietary intervention to better serve Pt's needs and clinical conditions during LOS. Goal #2 Maintain body weight within +/ -3% of admission body weight during LOS. Follow-Up By: 03/23/22 Additional Comments Start monitoring food tolerance, %PO intake of meals , and BM.
[2022-03-17] MEDS: amLODIPine 5 MG TAB PO SCH (09:08)
[2022-03-17] MEDS: HEPARIN 5,000 UNIT/1 ML VIAL SUB-Q SCH ×2 (09:08→16:12)
[2022-03-17] MEDS: FAMOTIDINE 20 MG TAB PO SCH (09:09)
[2022-03-17] MEDS: SENNOSIDES/DOCUSATE SODIUM 8.6/50 MG TAB PO SCH (09:12)
--- NOTE | 2022-03-17 11:04 | Progress Note ---
Assessment and Plan - Patient Problems (1) CHF (congestive heart failure) Current Visit: Yes Status: Acute (2) Acute respiratory failure with hypoxia and hypercapnia Current Visit: Yes Status: Acute Subjective Date of service: 03/17/22 Principal diagnosis: Acute resp failure with hypoxia and hypercarbia Interval history: BREATHING BETTER,,,,,,,,,LEGS ARE BETTER Objective Vital Signs Temp Pulse Pulse Resp BP Pulse Ox 03/17/22 10:00 78 19 134/77 89 03/17/22 09:39 98.5 F 03/17/22 09:08 76 127/79 03/17/22 09:00 70 18 127/79 90 03/17/22 08:14 97 03/17/22 08:00 75 69 12 118/65 99 03/17/22 07:00 67 18 114/74 97 03/17/22 06:00 76 18 136/84 98 03/17/22 05:13 77 129/84 03/17/22 05:00 98.2 F 74 20 129/84 94 03/17/22 04:10 69 03/17/22 04:06 69 19 133/88 99 03/17/22 04:00 74 69 12 133/88 99 03/17/22 03:00 71 16 133/88 99 03/17/22 02:00 73 16 131/72 99 03/17/22 01:00 69 20 129/78 98 03/17/22 00:40 20 03/17/22 00:00 98.5 F 78 18 133/86 94 03/16/22 23:28 78 16 93 03/16/22 23:24 79 14 138/90 95 03/16/22 23:00 78 16 138/90 93 03/16/22 22:30 75 18 124/79 96 03/16/22 22:00 76 16 124/79 95 03/16/22 21:30 22 143/116 95 03/16/22 21:00 83 16 135/78 92 03/16/22 20:46 80 19 135/78 93 03/16/22 20:30 77 14 135/78 89 03/16/22 20:16 20 135/78 93 03/16/22 20:05 79 03/16/22 20:00 98.2 F 74 74 20 135/78 93 03/16/22 19:46 170 H 20 128/86 96 06/01/22 19:30 22 128/86 89 03/16/22 19:16 14 128/86 94 03/16/22 19:00 23 128/86 92 03/16/22 18:46 78 17 127/78 93 03/16/22 18:30 78 29 H 94 03/16/22 18:25 15 93 03/16/22 18:00 76 16 131/77 90 03/16/22 17:46 84 14 130/75 93 03/16/22 17:31 81 138/84 03/16/22 17:30 88 17 138/84 89 03/16/22 17:16 78 13 130/75 93 03/16/22 17:00 80 13 130/75 88 03/16/22 16:55 98.2 F 03/16/22 16:46 79 14 92 03/16/22 16:30 82 15 123/74 89 03/16/22 16:15 84 19 131/80 90 03/16/22 16:01 75 16 131/80 94 03/16/22 15:54 79 20 95 03/16/22 15:53 79 03/16/22 15:45 81 27 H 123/78 95 03/16/22 15:30 75 26 H 123/78 89 03/16/22 15:25 76 20 151/79 98 03/16/22 15:15 74 35 H 151/79 98 03/16/22 15:00 74 23 151/79 91 03/16/22 14:45 76 33 H 146/89 98 03/16/22 14:30 73 26 H 146/89 90 03/16/22 14:15 73 38 H 156/102 98 03/16/22 14:00 77 24 156/102 92 03/16/22 13:45 73 34 H 140/90 98 03/16/22 13:30 71 22 140/90 90 03/16/22 13:15 34 H 147/87 100 03/16/22 13:00 86 19 147/87 93 03/16/22 12:45 81 29 H 129/90 94 03/16/22 12:30 79 21 129/90 82 L 03/16/22 12:29 81 140/99 03/16/22 12:15 79 15 140/99 92 06/01/22 12:01 83 22 140/99 84 03/16/22 11:45 80 22 146/91 84 03/16/22 11:38 98.4 F 03/16/22 11:30 81 18 269/194 03/16/22 11:21 75 71 14 92 03/16/22 11:15 79 16 190/110 69 L - Physical Examination General: Appears Well, No Apparent Distress, Other (Morbidly obese) HEENT: Positive: PERRL, Normocephaly, Mucus Membranes Moist. Negative: Jaundice Neck: Positive: neck supple, trachea midline. Negative: JVD/HJR Cardiac: Positive: Reg Rate and Rhythm Lungs: Positive: Decreased Breath Sounds Neuro: Positive: Grossly Intact, No Lateralizing Findings, Other (Intubatd and sedated) Abdomen: Positive: Soft, Active Bowel Sounds Extremities: Present: edema (MILD,,,ANKLE DRESSED), Other (peripheral ulcer left leg, hyperpigmentation both lower legs with vascular skin changes) - Labs and Meds CBC 03/17/22 Range/Units 05:10 WBC 5.0 (4.5-11.0) K/mm3 RBC 5.39 H (3.65-5.03) M/mm3 Hgb 12.9 (11.8-15.2) gm/dl Hct 42.9 (35.5-45.6) % Plt Count 183 (140-440) K/mm3 Comprehensive Metabolic Panel 03/17/22 Range/Units 05:10 Sodium 138 (137-145) mmol/L Potassium 3.7 (3.6-5.0) mmol/L Chloride 97.0 L (98-107) mmol/L Carbon Dioxide 35 H (22-30) mmol/L BUN 20 (9-20) mg/dL Creatinine 0.9 (0.8-1.3) mg/dL Glucose 109 H (75-100) mg/dL Calcium 8.7 (8.4-10.2) mg/dL - EKG Sinus rhythms and dysrhythmias: sinus rhythm - Allied health notes Allied health notes reviewed: nursing
[2022-03-17] MEDS: SPIRONOLACTONE 50 MG TAB PO SCH (11:17)
[2022-03-17] MEDS: carvediloL 3.125 MG TAB PO SCH ×2 (12:45→22:50)
[2022-03-17] MEDS: LISINOPRIL 20 MG TAB PO SCH (12:46)
--- NOTE | 2022-03-17 13:38 | Progress Note ---
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 DM II - doing better - ok to transfer to telemetry - continue NIV scheduled qhs with prn daytime use - continue care as below otherwise; - follow lower extremity dopplers r/o DVT - [employer] evaluation and advance diet as tolerated - accuchecks with glycemic control per SSI for target blood glucose of < 180 mg/dL; avoid hypoglycemia - supplemental oxygen for target O2 sat's > 90% acutely - aspiration precautions - bronchodilators with pulmonary hygiene per RT - wean per pulmonary driven protocols otherwise - avoid nephrotoxins, renally dose all medications - continue to avoid benzodiazepine's, reduce the possibility of delirium - AB's per ID rec's - prn analgesia per pain score - Maintenance of sleep-wake cycle, avoid delirium - continue enteral nutritional support at goal rate as tolerated - G.I. & VTE prophylaxis - PT/OT/ROM exercises - continue mobility protocols for pressure ulcer prophylaxis - Monitor hemodynamics closely - continue other care per attending / other consultants - discharge planning ongoing concurrently .... Re-evaluate in am & prn Subjective Date of service: 03/17/22 Principal diagnosis: Acute hypoxemic and hypercapnic Resp Failure; AE-CHF; P robable AGUS/OHS; CHF Interval history: Patient is seen today for: Acute and chronic hypoxemic and hypercapnic Respiratory Failure; AE-CHF; h/o Tracheostomy; Probable AGUS/OHS; Extreme obesity; Acute decompensated chronic combined systolic and diastolic heart fa ilure; DM II Seen and examined at bedside; 24hour events reviewed; nursing and respiratory care staff consulted; no adverse overnight events reported to me; resting peacefully in bed; tolerated BIPAP well overnight; A&O X 3; FiO2 down to 36%; denies N/V/F/C Objective Vital Signs - 12hr 03/17/22 03/17/22 03/17/22 02:00 03:00 04:00 Temperature Pulse Rate 73 71 74 Pulse Rate [ 69 From Monitor] Respiratory 16 16 12 Rate Blood Pressure 131/72 133/88 133/88 O2 Sat by Pulse 99 99 99 Oximetry 03/17/22 03/17/22 03/17/22 04:06 04:10 05:00 Temperature 98.2 F Pulse Rate 69 69 74 Pulse Rate [ From Monitor] Respiratory 19 20 Rate Blood Pressure 133/88 129/84 O2 Sat by Pulse 99 94 Oximetry 03/17/22 03/17/22 03/17/22 05:13 06:00 07:00 Temperature Pulse Rate 77 76 67 Pulse Rate [ From Monitor] Respiratory 18 18 Rate Blood Pressure 129/84 136/84 114/74 O2 Sat by Pulse 98 97 Oximetry 03/17/22 03/17/22 03/17/22 08:00 08:14 09:00 Temperature Pulse Rate 75 70 Pulse Rate [ 69 From Monitor] Respiratory 12 18 Rate Blood Pressure 118/65 127/79 O2 Sat by Pulse 99 97 90 Oximetry 03/17/22 03/17/22 03/17/22 09:08 09:39 10:00 Temperature 98.5 F Pulse Rate 76 78 Pulse Rate [ From Monitor] Respiratory 19 Rate Blood Pressure 127/79 134/77 O2 Sat by Pulse 89 Oximetry 03/17/22 03/17/22 03/17/22 11:00 11:17 12:00 Temperature Pulse Rate 75 75 77 Pulse Rate [ 69 From Monitor] Respiratory 21 21 Rate Blood Pressure 136/80 136/80 131/83 O2 Sat by Pulse 92 88 Oximetry 03/17/22 03/17/22 03/17/22 12:45 12:46 13:00 Temperature Pulse Rate 75 76 73 Pulse Rate [ From Monitor] Respiratory 17 Rate Blood Pressure 131/83 131/83 134/83 O2 Sat by Pulse 98 Oximetry Constitutional: no acute distress, alert, other (atruamatic, normocephalic, large neck, orally intuabted) Eyes: non-icteric ENT: other (BIPAP FFM) Neck: supple, no lymphadenopathy, other (short large neck) Effort: normal Ascultation: Bilateral: diminished breath sounds, rhonchi Percussion: Bilateral: not dull Cardiovascular: regular rate and rhythm, other (S1,S2) Gastrointestinal: normoactive bowel sounds, soft, non-tender, non-distended Integumentary: rash (stasis dermatitis) Extremities: pulses normal, no ischemia or petechiae, edema (3+, scrotal edema, anterior abdominal wall edema) Neurologic: normal mental status, non-focal exam, pupils equal and round, motor strength normal and Psychiatric: mood appropriate, affect normal CBC and BMP: 03/17/22 05:10 03/17/22 05:10 ABG, PT/INR, D-dimer: ABG ABG pH 7.511 pH Units (7.350-7.450) H 03/15/22 08:32 ABG pCO2 42.7 mm Hg 03/15/22 08:32 ABG pO2 68.3 mm Hg (80.0-90.0) L 03/15/22 08:32 ABG O2 Saturation 95.6 % (95.0-99.0) 03/15/22 08:32 Abnormal lab findings: Abnormal Labs 03/13/22 03/13/22 03/13/22 02:30 02:30 07:50 RBC Hgb 11.0 L MCV 80 L MCH 25 L MCHC 31 L RDW 21.0 H [place] % (Auto) 10.1 H Seg Neuts % (Manual) Lymphocytes % (Manual) Lymphocytes # (Manual) ABG pH 7.001 L* ABG pO2 90.8 H ABG HCO3 41.7 H ABG O2 Saturation 90.4 L ABG Base Excess 5.7 H ABG Hemoglobin 12.1 L Oxyhemoglobin 87.7 L Potassium Chloride Carbon Dioxide 33 H BUN 23 H Glucose POC Glucose Calcium 8.1 L NT-Pro-B Natriuret Pep 4736 H Albumin 3.5 L Lipase 12 L 03/13/22 03/13/22 03/14/22 11:10 21:52 02:50 RBC Hgb MCV MCH MCHC RDW [place] % (Auto) Seg Neuts % (Manual) Lymphocytes % (Manual) Lymphocytes # (Manual) ABG pH ABG pO2 56.8 L ABG HCO3 35.2 H ABG O2 Saturation 93.6 L ABG Base Excess 9.6 H ABG Hemoglobin 12.1 L Oxyhemoglobin 91.0 L Potassium Chloride 97.2 L Carbon Dioxide BUN 23 H Glucose 132 H POC Glucose 107 H Calcium 7.6 L NT-Pro-B Natriuret Pep Albumin Lipase 03/14/22 03/14/22 03/14/22 05:24 09:54 12:21 RBC Hgb MCV MCH MCHC RDW [place] % (Auto) Seg Neuts % (Manual) Lymphocytes % (Manual) Lymphocytes # (Manual) ABG pH 7.478 H ABG pO2 76.2 L ABG HCO3 33.5 H ABG O2 Saturation ABG Base Excess 8.9 H ABG Hemoglobin 11.4 L Oxyhemoglobin 94.8 L Potassium Chloride Carbon Dioxide BUN Glucose POC Glucose 145 H 149 H Calcium NT-Pro-B Natriuret Pep Albumin Lipase 03/14/22 03/14/22 03/14/22 16:32 21:50 Unknown RBC Hgb 11.2 L MCV 78 L MCH 25 L MCHC 31 L RDW 20.8 H [place] % (Auto) Seg Neuts % (Manual) 89.0 H Lymphocytes % (Manual) 4.0 L Lymphocytes # (Manual) 0.3 L ABG pH ABG pO2 ABG HCO3 ABG O2 Saturation ABG Base Excess ABG Hemoglobin Oxyhemoglobin Potassium Chloride Carbon Dioxide BUN Glucose POC Glucose 125 H 115 H Calcium NT-Pro-B Natriuret Pep Albumin Lipase 03/15/22 03/15/22 03/15/22 04:17 04:17 08:32 RBC Hgb 11.6 L MCV 79 L MCH 24 L MCHC 30 L RDW 21.1 H [place] % (Auto) Seg Neuts % (Manual) Lymphocytes % (Manual) Lymphocytes # (Manual) ABG pH 7.511 H ABG pO2 68.3 L ABG HCO3 33.4 H ABG O2 Saturation ABG Base Excess 9.5 H ABG Hemoglobin 13.3 L Oxyhemoglobin 93.5 L Potassium 3.3 L Chloride Carbon Dioxide BUN 21 H Glucose POC Glucose Calcium NT-Pro-B Natriuret Pep Albumin Lipase 03/16/22 03/16/22 03/16/22 08:04 08:04 16:10 RBC 5.37 H Hgb MCV 80 L MCH 24 L MCHC 30 L RDW 21.1 H [place] % (Auto) Seg Neuts % (Manual) Lymphocytes % (Manual) Lymphocytes # (Manual) ABG pH ABG pO2 ABG HCO3 ABG O2 Saturation ABG Base Excess ABG Hemoglobin Oxyhemoglobin Potassium Chloride 96.8 L Carbon Dioxide 33 H BUN Glucose POC Glucose 112 H Calcium NT-Pro-B Natriuret Pep Albumin Lipase 03/17/22 03/17/22 05:10 05:10 RBC 5.39 H Hgb MCV 80 L MCH 24 L MCHC 30 L RDW 20.7 H [place] % (Auto) Seg Neuts % (Manual) Lymphocytes % (Manual) Lymphocytes # (Manual) ABG pH ABG pO2 ABG HCO3 ABG O2 Saturation ABG Base Excess ABG Hemoglobin Oxyhemoglobin Potassium Chloride 97.0 L Carbon Dioxide 35 H BUN Glucose 109 H POC Glucose Calcium NT-Pro-B Natriuret Pep Albumin Lipase Allied health notes reviewed: nursing
[2022-03-17] MEDS: hydrALAZINE 10 MG TAB PO SCH ×2 (16:11→22:50)
[2022-03-18] MEDS: SENNOSIDES/DOCUSATE SODIUM 8.6/50 MG TAB PO SCH ×3 (00:26→22:18)
[2022-03-18] MEDS: HEPARIN 5,000 UNIT/1 ML VIAL SUB-Q SCH ×3 (00:26→15:50)
[2022-03-18] MEDS: hydrALAZINE 10 MG TAB PO SCH ×3 (06:12→22:18)
[2022-03-18] MEDS: NITROGLYCERIN 2% OINT 1 GM TP SCH ×3 (06:12→18:47)
[2022-03-18] MEDS: FUROSEMIDE 40 MG/4 ML INJ IV SCH ×2 (06:12→18:47)
[2022-03-18] MEDS: INSULIN LISPRO 100 UNIT/ML SUB-Q SCH ×3 (08:43→22:20)
--- NOTE | 2022-03-18 10:16 | Progress Note ---
Assessment and Plan - Patient Problems (1) Acute respiratory failure with hypoxia and hypercapnia Current Visit: Yes Status: Acute Plan to address problem: Patient with morbid obesity, weighing greater than 400 pounds, obstructive sleep apnea on home CPAP. Presents with acute respiratory failure, has been successfully managed and weaned off the vent. ECG on this presentation is abnormal with inferolateral T wave inversions, but echocardiogram showed normal left ventricular systolic function with ejection fraction 60 to 65%. Patient also reports a negative myocardial perfusion study at [facility] done 2 months ago. I will recommend obtaining [facility] records to review his reported myocardial perfusion study. We should also obtain an ECG for comparative analysis to the current abnormal tracing. Otherwise conservative cardiac management and follow- up. Subjective Date of service: 03/18/22 Principal diagnosis: Acute hypoxemic and hypercapnic Resp Failure; AE-CHF; Probable AGUS/OHS; CHF Interval history: The patient is a 56-year-old man who is morbidly obese, weighing over 400 pounds. He has sleep apnea on home CPAP. He describes no significant cardiac cardiac history, reported that 2 months ago while at [facility] he had a negative pharmacologic stress test with myocardial perfusion imaging. He presented to the emergency room at this time with respiratory failure requiring intubation, has been managed successfully and weaned off the vent, currently on the telemetry floor. There is no chest pain, no cardiac complaints. An echocardiogram done on this presentation reports left ventricular ejection fraction 60 to 65%. EKG is sinus rhythm, right bundle branch block with inferolateral T wave inversions. There are no old EKGs in the chart for comparative analysis. Objective Vital Signs Temp Pulse Pulse Resp BP Pulse Ox 03/18/22 08:29 98.6 F 69 18 107/57 96 03/18/22 08:22 95 03/18/22 04:34 98.6 F 69 20 98/62 97 03/17/22 23:40 79 18 98/62 98 03/17/22 23:19 97.9 F 74 20 110/64 98 03/17/22 21:35 97 03/17/22 20:20 70 03/17/22 19:59 98.8 F 70 20 112/75 94 03/17/22 16:20 131/80 85 03/17/22 16:00 74 69 19 131/80 92 03/17/22 15:00 73 21 121/75 96 03/17/22 14:00 73 21 134/88 92 03/17/22 13:00 73 17 134/83 98 03/17/22 12:46 76 131/83 03/17/22 12:45 75 131/83 03/17/22 12:00 77 69 21 131/83 88 03/17/22 11:17 75 136/80 03/17/22 11:00 75 21 136/80 92 - Physical Examination General: No Apparent Distress, Other (Morbidly obese) HEENT: Positive: PERRL, Normocephaly, Mucus Membranes Moist. Negative: Jaundice Neck: Positive: neck supple, trachea midline. Negative: JVD/HJR Cardiac: Positive: Reg Rate and Rhythm Lungs: Positive: Decreased Breath Sounds Neuro: Positive: Grossly Intact Abdomen: Positive: Soft, Active Bowel Sounds Skin: Positive: Clear Extremities: Present: edema (Trace), Other (peripheral ulcer left leg, hyperpigmentation both lower legs with vascular skin changes) - EKG Sinus rhythms and dysrhythmias: sinus rhythm - Allied health notes Allied health notes reviewed: nursing
[2022-03-18] MEDS: carvediloL 3.125 MG TAB PO SCH ×2 (10:47→22:18)
[2022-03-18] MEDS: FAMOTIDINE 20 MG TAB PO SCH (10:47)
[2022-03-18] MEDS: SPIRONOLACTONE 50 MG TAB PO SCH (10:48)
--- NOTE | 2022-03-18 12:39 | Progress Note ---
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 DM II - lower extremity dopplers re-ordered to evaluate for VTE - continue NIV scheduled qhs with prn daytime use - continue care as below otherwise; - accuchecks with glycemic control per SSI for target blood glucose of < 180 mg/dL; avoid hypoglycemia - supplemental oxygen for target O2 sat's > 90% acutely - aspiration precautions - bronchodilators with pulmonary hygiene per RT - wean per pulmonary driven protocols otherwise - avoid nephrotoxins, renally dose all medications - continue to avoid benzodiazepine's, reduce the possibility of delirium - AB's per ID rec's - prn analgesia per pain score - Maintenance of sleep-wake cycle, avoid delirium - continue enteral nutritional support at goal rate as tolerated - G.I. & VTE prophylaxis - PT/OT/ROM exercises - continue mobility protocols for pressure ulcer prophylaxis - Monitor hemodynamics closely - continue other care per attending / other consultants - discharge planning ongoing concurrently .... Re-evaluate in am & prn Subjective Date of service: 03/18/22 Principal diagnosis: Acute hypoxemic and hypercapnic Resp Failure; AE-CHF; Probable AGUS/OHS; CHF Interval history: Patient is seen today for: Acute and chronic hypoxemic and hypercapnic Respiratory Failure; AE-CHF; h/o Tracheostomy; Probable AGUS/OHS; Extreme obesity; Acute decompensated chronic combined systolic and diastolic heart failure; DM II Seen and examined at bedside; 24hour events reviewed; nursing and respiratory care staff consulted; no adverse overnight events reported to me; resting peacefully in bed; remains on supplemental oxygen at 32% FiO2; denies acute chest pains or palpitations Objective Vital Signs - 12hr 03/18/22 03/18/22 03/18/22 04:34 08:22 08:29 Temperature 98.6 F 98.6 F Pulse Rate 69 69 Respiratory 20 18 Rate Blood Pressure 98/62 107/57 O2 Sat by Pulse 97 95 96 Oximetry Constitutional: no acute distress, alert, other (atruamatic, normocephalic, large neck) Eyes: non-icteric Neck: supple, no lymphadenopathy, other (short large neck) Effort: normal Ascultation: Bilateral: diminished breath sounds, rhonchi (bases) Percussion: Bilateral: not dull Cardiovascular: regular rate and rhythm, other (S1,S2) Gastrointestinal: normoactive bowel sounds, soft, non-tender, non-distended Integumentary: rash (stasis dermatitis) Extremities: pulses normal, no ischemia or petechiae, edema (3+, scrotal edema, anterior abdominal wall edema) Neurologic: normal mental status, non-focal exam, pupils equal and round, motor strength normal and Psychiatric: mood appropriate, affect normal CBC and BMP: 03/17/22 05:10 03/19/22 07:25 ABG, PT/INR, D-dimer: ABG ABG pH 7.511 pH Units (7.350-7.450) H 03/15/22 08:32 ABG pCO2 42.7 mm Hg 03/15/22 08:32 ABG pO2 68.3 mm Hg (80.0-90.0) L 03/15/22 08:32 ABG O2 Saturation 95.6 % (95.0-99.0) 03/15/22 08:32 Abnormal lab findings: Abnormal Labs 03/13/22 03/13/22 03/13/22 02:30 02:30 07:50 RBC Hgb 11.0 L MCV 80 L MCH 25 L MCHC 31 L RDW 21.0 H [place] % (Auto) 10.1 H Seg Neuts % (Manual) Lymphocytes % (Manual) Lymphocytes # (Manual) ABG pH 7.001 L* ABG pO2 90.8 H ABG HCO3 41.7 H ABG O2 Saturation 90.4 L ABG Base Excess 5.7 H ABG Hemoglobin 12.1 L Oxyhemoglobin 87.7 L Potassium Chloride Carbon Dioxide 33 H BUN 23 H Glucose POC Glucose Calcium 8.1 L NT-Pro-B Natriuret Pep 4736 H Albumin 3.5 L Lipase 12 L 03/13/22 03/13/22 03/14/22 11:10 21:52 02:50 RBC Hgb MCV MCH MCHC RDW [place] % (Auto) Seg Neuts % (Manual) Lymphocytes % (Manual) Lymphocytes # (Manual) ABG pH ABG pO2 56.8 L ABG HCO3 35.2 H ABG O2 Saturation 93.6 L ABG Base Excess 9.6 H ABG Hemoglobin 12.1 L Oxyhemoglobin 91.0 L Potassium Chloride 97.2 L Carbon Dioxide BUN 23 H Glucose 132 H POC Glucose 107 H Calcium 7.6 L NT-Pro-B Natriuret Pep Albumin Lipase 03/14/22 03/14/22 03/14/22 05:24 09:54 12:21 RBC Hgb MCV MCH MCHC RDW [place] % (Auto) Seg Neuts % (Manual) Lymphocytes % (Manual) Lymphocytes # (Manual) ABG pH 7.478 H ABG pO2 76.2 L ABG HCO3 33.5 H ABG O2 Saturation ABG Base Excess 8.9 H ABG Hemoglobin 11.4 L Oxyhemoglobin 94.8 L Potassium Chloride Carbon Dioxide BUN Glucose POC Glucose 145 H 149 H Calcium NT-Pro-B Natriuret Pep Albumin Lipase 03/14/22 03/14/22 03/14/22 16:32 21:50 Unknown RBC Hgb 11.2 L MCV 78 L MCH 25 L MCHC 31 L RDW 20.8 H [place] % (Auto) Seg Neuts % (Manual) 89.0 H Lymphocytes % (Manual) 4.0 L Lymphocytes # (Manual) 0.3 L ABG pH ABG pO2 ABG HCO3 ABG O2 Saturation ABG Base Excess ABG Hemoglobin Oxyhemoglobin Potassium Chloride Carbon Dioxide BUN Glucose POC Glucose 125 H 115 H Calcium NT-Pro-B Natriuret Pep Albumin Lipase 03/15/22 03/15/22 03/15/22 04:17 04:17 08:32 RBC Hgb 11.6 L MCV 79 L MCH 24 L MCHC 30 L RDW 21.1 H [place] % (Auto) Seg Neuts % (Manual) Lymphocytes % (Manual) Lymphocytes # (Manual) ABG pH 7.511 H ABG pO2 68.3 L ABG HCO3 33.4 H ABG O2 Saturation ABG Base Excess 9.5 H ABG Hemoglobin 13.3 L Oxyhemoglobin 93.5 L Potassium 3.3 L Chloride Carbon Dioxide BUN 21 H Glucose POC Glucose Calcium NT-Pro-B Natriuret Pep Albumin Lipase 03/16/22 03/16/22 03/16/22 08:04 08:04 16:10 RBC 5.37 H Hgb MCV 80 L MCH 24 L MCHC 30 L RDW 21.1 H [place] % (Auto) Seg Neuts % (Manual) Lymphocytes % (Manual) Lymphocytes # (Manual) ABG pH ABG pO2 ABG HCO3 ABG O2 Saturation ABG Base Excess ABG Hemoglobin Oxyhemoglobin Potassium Chloride 96.8 L Carbon Dioxide 33 H BUN Glucose POC Glucose 112 H Calcium NT-Pro-B Natriuret Pep Albumin Lipase 03/17/22 03/17/22 03/18/22 05:10 05:10 08:27 RBC 5.39 H Hgb MCV 80 L MCH 24 L MCHC 30 L RDW 20.7 H [place] % (Auto) Seg Neuts % (Manual) Lymphocytes % (Manual) Lymphocytes # (Manual) ABG pH ABG pO2 ABG HCO3 ABG O2 Saturation ABG Base Excess ABG Hemoglobin Oxyhemoglobin Potassium Chloride 97.0 L Carbon Dioxide 35 H BUN Glucose 109 H POC Glucose 117 H Calcium NT-Pro-B Natriuret Pep Albumin Lipase Allied health notes reviewed: nursing
[2022-03-18 13:36] LABS: BUN/Creatinine Ratio 28; Blood Urea Nitrogen 22 mg/dL (9-20); Hemolysis Index 11
--- NOTE | 2022-03-18 14:16 | Progress Note ---
Assessment and Plan Assessment and plan: Interval history: This is a 56-year-old male with CHF, DM, HTN, MO presents to the emergency department on 03/13 with complaints of diffuse abdominal pain which started earlier in the day with nausea and intermittent shortness of breath on exertion. In the emergency department patient had an episode of respiratory distress and became hypoxic and was placed on nonrebreather with improvement his oxygen saturations. Work-up in the emergency department included a CXR which showed mild pulmonary vascular congestion and cardiomegaly and lab work significant for elevated creatinine of 1.1. Patient was admitted to the hospitalist service with consults to cardiology. While in the emergency department patient's respiratory distress progressed to acute hypercarbic respiratory failure with decompensated respiratory acidosis while on BiPAP and patient became unresponsive and had to be intubated in the emergency department. CCM was sent consulted and patient transferred to ICU. Hospital course to date: 03/14: Patient remains intubated with FiO2 of 70%, CXR shows cardiomegaly with pulmonary edema. We will continue antibiotics until procalcitonin results. Continue diuresis. Wean respiratory support as tolerated. Fentanyl as needed as needed. Patient has sedated however states that he is comfortable. 03/15: Weaning Fi02 as tolerated. No acute events overnight. 03/16: BiPAP qhs, 5l NC while awake, transfer to [facility]. Cardiology will continue IV lasix so will keep rome in place. Transfer to [facility] 03/17: currently on 3 l/min nc. awake, resting comfortably. Cardiology believes ECHO shows normal EF but visualization difficult. Agree with recommended cardiac MRI OP. Added lisinopril for GDMT HF management. Net fluid balance -4100 cc yes terday. Continue additional diuresis today. Plan for potential d/c tomorrow. 03/18: Currently on 3 L nasal cannula. Continue with IV diuresis while working to wean oxygen requirement. Patient described only using supplemental oxygen at home as needed. Continue to monitor. Plan for potential discharge in 24-72 hours. 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 OHS versus AGUS -CCM consulted, appreciate recommendations -Intubated 03/13 with 7.5 OETT at 24 cm at lip, extubated 03/15 -Bipap qhs -NC during day -Pulmonary hygiene -SPO2 monitoring GI: Morbid obesity -24 hours -5900 mL -PPI -CC diet -BR: Senokat -CT abdomen/pelvis with contrast showed no acute findings, moderate cardiomegaly, diverticulosis without acute inflammation, degenerative changes of the lumbar spine present with straightening of lordosis and moderate loss of int ervertebral disc space at L4-5 and L5 -S1, vacuum disc phenomenon present : NAD -Nephrology consulted, appreciate recommendations -Strict intake and output -Renally dose medications -Avoid nephrotoxic medications -Daily weights -Trend BMP ID: Lower extremity cellulites -Antibiotic therapy with Rocephin -Procal 1.23 -f/u blood culture -Monitor WBC and temperature curve Endo: h/o DM -Avoid hypoglycemia -SSI -Accu-Cheks ACHS Heme: NAD -Trend CBC -heparin subq -Transfuse hemoglobin less than 7 -Monitor for signs of bleeding -SCDs to BLE while in bed #Morbid obesity #Weight loss counseling #Exercise counseling - BMI 58.6 - Counseled patient on the importance of weight loss, incorporating exercise, and dietary changes (lean meats, fresh fruits and vegetables, and water intake). Patient expresses understanding. - Time: +15 min #Advanced care planning -Disease education conducted, care plan discussed, diagnoses discussed, prognosis discussed, and patient acknowledges understanding with care plan -Time: +30 min Disposition Plan: Continue medical management Total Time Spent with Patient (Minutes): 45 minutes History Interval history: No acute events overnight. Hospitalist Physical - Constitutional Vitals: Temp Pulse Resp BP Pulse Ox 98.6 F 75 18 106/56 96 03/18/22 12:39 03/18/22 12:39 03/18/22 12:39 03/18/22 12:39 03/18/22 12:39 General appearance: Present: no acute distress, well-nourished, obese - EENT Eyes: Present: PERRL, EOM intact ENT: hearing intact, clear oral mucosa, dentition normal - Neck Neck: Present: supple, normal ROM - Respiratory Respiratory effort: normal Respiratory: bilateral: diminished (3L nasal cannula) - Cardiovascular Rhythm: regular Heart Sounds: Present: S1 & S2 - Extremities Extremities: no ischemia, pulses intact, pulses symmetrical, No edema, normal temperature, normal color Peripheral Pulses: within normal limits - Abdominal General gastrointestinal: soft, non-tender, non-distended, normal bowel sounds - Integumentary Integumentary: Present: clear, warm, dry - Psychiatric Psychiatric: appropriate mood/affect, intact judgment & insight, memory intact, cooperative - Neurologic Neurologic: CNII-XII intact, moves all extremities - Allied Health Allied health notes reviewed: nursing Results - Labs CBC & Chem 7: 03/17/22 05:10 03/18/22 12:37 Labs: Laboratory Last Values WBC 5.0 K/mm3 (4.5-11.0) 03/17/22 05:10 RBC 5.39 M/mm3 (3.65-5.03) H 03/17/22 05:10 Hgb 12.9 gm/dl (11.8-15.2) 03/17/22 05:10 Hct 42.9 % (35.5-45.6) 03/17/22 05:10 MCV 80 fl (84-94) L 03/17/22 05:10 MCH 24 pg (28-32) L 03/17/22 05:10 MCHC 30 % (32-34) L 03/17/22 05:10 RDW 20.7 % (13.2-15.2) H 03/17/22 05:10 Plt Count 183 K/mm3 (140-440) 03/17/22 05:10 Lymph % (Auto) 24.4 % (13.4-35.0) 03/13/22 02:30 [place] % (Auto) 10.1 % (0.0-7.3) H 03/13/22 02:30 Eos % (Auto) 1.5 % (0.0-4.3) 03/13/22 02:30 Baso % (Auto) 0.4 % (0.0-1.8) 03/13/22 02:30 Lymph # (Auto) 1.6 K/mm3 (1.2-5.4) 03/13/22 02:30 [place] # (Auto) 0.7 K/mm3 (0.0-0.8) 03/13/22 02:30 Eos # (Auto) 0.1 K/mm3 (0.0-0.4) 03/13/22 02:30 Baso # (Auto) 0.0 K/mm3 (0.0-0.1) 03/13/22 02:30 Add Manual Diff Complete 03/14/22 Unknown Total Counted 100 03/14/22 Unknown Seg Neutrophils % [employer] 03/14/22 Unknown Seg Neuts % (Manual) 89.0 % (40.0-70.0) H 03/14/22 Unknown Band Neutrophils % 3.0 % 03/14/22 Unknown Lymphocytes % (Manual) 4.0 % (13.4-35.0) L 03/14/22 Unknown Reactive Lymphs % (Man) 0 % 03/14/22 Unknown Monocytes % (Manual) 3.0 % (0.0-7.3) 03/14/22 Unknown Eosinophils % (Manual) 1.0 % (0.0-4.3) 03/14/22 Unknown Basophils % (Manual) 0 % (0.0-1.8) 03/14/22 Unknown Metamyelocytes % 0 % 03/14/22 Unknown Myelocytes % 0 % 03/14/22 Unknown Promyelocytes % 0 % 03/14/22 Unknown Blast Cells % 0 % 03/14/22 Unknown Nucleated RBC % Not Reportable 03/14/22 Unknown Seg Neutrophils # 4.3 K/mm3 (1.8-7.7) 03/13/22 02:30 Seg Neutrophils # Man 5.9 K/mm3 (1.8-7.7) 03/14/22 Unknown Band Neutrophils # 0.2 K/mm3 03/14/22 Unknown Lymphocytes # (Manual) 0.3 K/mm3 (1.2-5.4) L 03/14/22 Unknown Abs React Lymphs (Man) 0.0 K/mm3 03/14/22 Unknown Monocytes # (Manual) 0.2 K/mm3 (0.0-0.8) 03/14/22 Unknown Eosinophils # (Manual) 0.1 K/mm3 (0.0-0.4) 03/14/22 Unknown Basophils # (Manual) 0.0 K/mm3 (0.0-0.1) 03/14/22 Unknown Metamyelocytes # 0.0 K/mm3 03/14/22 Unknown Myelocytes # 0.0 K/mm3 03/14/22 Unknown Promyelocytes # 0.0 K/mm3 03/14/22 Unknown Blast Cells # 0.0 K/mm3 03/14/22 Unknown WBC Morphology Not Reportable 03/14/22 Unknown Hypersegmented Neuts Not Reportable 03/14/22 Unknown Hyposegmented Neuts Not Reportable 03/14/22 Unknown Hypogranular Neuts Not Reportable 03/14/22 Unknown Smudge Cells Not Reportable 03/14/22 Unknown Toxic Granulation Not Reportable 03/14/22 Unknown Toxic Vacuolation Not Reportable 03/14/22 Unknown Dohle Bodies Not Reportable 03/14/22 Unknown Pelger-Huet Anomaly Not Reportable 03/14/22 Unknown Jill Rods Not Reportable 03/14/22 Unknown Platelet Estimate Consistent w auto 03/14/22 Unknown Clumped Platelets Not Reportable 03/14/22 Unknown Plt Clumps, EDTA Not Reportable 03/14/22 Unknown Large Platelets Not Reportable 03/14/22 Unknown Giant Platelets Not Reportable 03/14/22 Unknown Platelet Satelliting Not Reportable 03/14/22 Unknown Plt Morphology Comment Not Reportable 03/14/22 Unknown RBC Morphology Not Reportable 03/14/22 Unknown Dimorphic RBCs Not Reportable 03/14/22 Unknown Polychromasia Not Reportable 03/14/22 Unknown Hypochromasia Not Reportable 03/14/22 Unknown Poikilocytosis Not Reportable 03/14/22 Unknown Anisocytosis Not Reportable 03/14/22 Unknown Microcytosis Few 03/14/22 Unknown Macrocytosis Not Reportable 03/14/22 Unknown Spherocytes Not Reportable 03/14/22 Unknown Pappenheimer Bodies Not Reportable 03/14/22 Unknown Sickle Cells Not Reportable 03/14/22 Unknown Target Cells Not Reportable 03/14/22 Unknown Tear Drop Cells Not Reportable 03/14/22 Unknown Ovalocytes Not Reportable 03/14/22 Unknown Helmet Cells Not Reportable 03/14/22 Unknown [place] Bodies Not Reportable 03/14/22 Unknown [place] Rings Not Reportable 03/14/22 Unknown [place] Cells Not Reportable 03/14/22 Unknown Bite Cells Not Reportable 03/14/22 Unknown Crenated Cell Not Reportable 03/14/22 Unknown Elliptocytes Not Reportable 03/14/22 Unknown Acanthocytes (Spur) Not Reportable 03/14/22 Unknown Rouleaux Not Reportable 03/14/22 Unknown Hemoglobin C Crystals Not Reportable 03/14/22 Unknown Schistocytes Not Reportable 03/14/22 Unknown Malaria parasites Not Reportable 03/14/22 Unknown Martell Bodies Not Reportable 03/14/22 Unknown Hem Pathologist Commnt No 03/14/22 Unknown ABG pH 7.511 pH Units (7.350-7.450) H 03/15/22 08:32 ABG pCO2 42.7 mm Hg 03/15/22 08:32 ABG pO2 68.3 mm Hg (80.0-90.0) L 03/15/22 08:32 ABG HCO3 33.4 mmol/L (20.0-26.0) H 03/15/22 08:32 ABG O2 Saturation 95.6 % (95.0-99.0) 03/15/22 08:32 ABG O2 Content 17.5 (0.0-44) 03/15/22 08:32 ABG Base Excess 9.5 mmol/L (-2.0-3.0) H 03/15/22 08:32 ABG Hemoglobin 13.3 gm/dl (14.0-18.0) L 03/15/22 08:32 ABG Carboxyhemoglobin 1.7 % (0.0-5.0) 03/15/22 08:32 ABG Methemoglobin 0.5 % (0.0-1.5) 03/15/22 08:32 Oxyhemoglobin 93.5 % (95.0-99.0) L 03/15/22 08:32 FiO2 75 % 03/15/22 08:32 Sodium 137 mmol/L (137-145) 03/18/22 12:37 Potassium 4.2 mmol/L (3.6-5.0) 03/18/22 12:37 Chloride 94.9 mmol/L (98-107) L 03/18/22 12:37 Carbon Dioxide 33 mmol/L (22-30) H 03/18/22 12:37 Anion Gap 13 mmol/L 03/18/22 12:37 BUN 22 mg/dL (9-20) H 03/18/22 12:37 Creatinine 0.8 mg/dL (0.8-1.3) 03/18/22 12:37 Estimated GFR > 60 ml/min 03/18/22 12:37 BUN/Creatinine Ratio 28 % 03/18/22 12:37 Glucose 109 mg/dL (75-100) H 03/18/22 12:37 POC Glucose 105 mg/dL (70-105) 03/18/22 12:19 Calcium 9.0 mg/dL (8.4-10.2) 03/18/22 12:37 Magnesium 2.10 mg/dL (1.7-2.3) 03/15/22 09:14 Total Bilirubin 0.50 mg/dL (0.1-1.2) 03/13/22 02:30 AST 13 units/L (5-40) 03/13/22 02:30 ALT 13 units/L (7-56) 03/13/22 02:30 Alkaline Phosphatase 73 units/L (35-129) 03/13/22 02:30 NT-Pro-B Natriuret Pep 4736 pg/mL (0-900) H 03/13/22 02:30 Total Protein 7.5 g/dL (6.3-8.2) 03/13/22 02:30 Albumin 3.5 g/dL (3.9-5) L 03/13/22 02:30 Albumin/Globulin Ratio 0.9 % 03/13/22 02:30 Lipase 12 units/L (13-60) L 03/13/22 02:30 Procalcitonin 1.23 ng/mL (<0.15) 03/14/22 15:39 Urine Color Yellow (Yellow) 03/13/22 07:20 Urine Turbidity Clear (Clear) 03/13/22 07:20 Urine pH 5.0 (5.0-7.0) 03/13/22 07:20 Ur Specific Ken[place] 1.012 (1.003-1.030) 03/13/22 07:20 Urine Protein 30 mg/dl mg/dL (Negative) 03/13/22 07:20 Urine Glucose (UA) Neg mg/dL (Negative) 03/13/22 07:20 Urine Ketones Neg mg/dL (Negative) 03/13/22 07:20 Urine Blood Neg (Negative) 03/13/22 07:20 Urine Nitrite Neg (Negative) 03/13/22 07:20 Urine Bilirubin Neg (Negative) 03/13/22 07:20 Urine Urobilinogen < 2.0 mg/dL (<2.0) 03/13/22 07:20 Ur Leukocyte Esterase Neg (Negative) 03/13/22 07:20 Urine WBC (Auto) < 1.0 /HPF (0.0-6.0) 03/13/22 07:20 Urine RBC (Auto) < 1.0 /HPF (0.0-6.0) 03/13/22 07:20 Urine Bacteria (Auto) 1+ /HPF (Negative) 03/13/22 07:20 Hyaline Casts 1 /LPF 03/13/22 07:20 Urine Mucus Few /HPF 03/13/22 07:20 [place]/IV: Voiding Method Indwelling Catheter Active Medications - Current Medications Current Medications: Generic Name Dose Route Start Last Admin Trade Name Freq PRN Reason Stop Dose Admin Acetaminophen 650 mg 03/13/22 05:48 Acetaminophen 325 Mg Tab PO Q4H PRN Pain MILD(1-3)/Fever >100.5/DEJESUS Albuterol 2.5 mg 03/14/22 10:00 03/15/22 17:15 Albuterol 2.5 Mg/3 Ml Nebu IH 2.5 mg Q3H PRN Administration Wheezing Carvedilol 3.125 mg 03/17/22 12:00 03/17/22 22:50 Carvedilol 3.125 Mg Tab PO 3.125 mg BID GERRI Administration Dextrose 0 ml 03/13/22 05:48 Dextrose 50% In Water (25gm) 50 Ml Syringe IV Q30MIN PRN Hypoglycemia Protocol Famotidine 20 mg 03/16/22 10:00 03/17/22 09:09 Famotidine 20 Mg Tab PO 20 mg QDAY GERRI Administration Furosemide 40 mg 03/13/22 18:00 03/18/22 06:12 Furosemide 40 Mg/4 Ml Inj IV Not Given 0600,1800 [facility] Heparin Sodium (Porcine) 5,000 unit 03/13/22 08:00 03/18/22 00:26 Heparin 5,000 Unit/1 Ml Vial SUB-Q 5,000 unit Q8H GERRI Administration Hydralazine HCl 10 mg 03/13/22 16:56 03/16/22 09:43 Hydralazine 20 Mg/1 Ml Inj IV 10 mg Q3H PRN Administration Hypertension Hydralazine HCl 10 mg 03/17/22 14:00 03/18/22 06:12 Hydralazine 10 Mg Tab PO Not Given Q8HR [facility] Insulin Human Lispro 0 unit 03/16/22 11:30 03/18/22 08:43 Insulin Lispro 100 Unit/Ml SUB-Q Not Given ACHS [facility] Protocol Lisinopril 20 mg 03/17/22 12:00 03/17/22 12:46 Lisinopril 20 Mg Tab PO 20 mg QDAY [facility] Administration Magnesium Hydroxide 30 ml 03/13/22 05:48 Magnesium Hydroxide (Mom) Oral Liqd Udc PO Q4H PRN Constipation Morphine Sulfate 2 mg 03/13/22 05:48 Morphine 2 Mg/1 Ml Inj IV Q4H PRN Pain, Moderate (4-6) Morphine Sulfate 4 mg 03/13/22 05:48 03/15/22 11:42 Morphine 4 Mg/1 Ml Inj IV 4 mg Q4H PRN Administration Pain , Severe (7-10) Nitroglycerin 1 inch 03/13/22 13:00 03/18/22 06:12 Nitroglycerin 2% Oint 1 Gm TP Not Given TIDNTG [facility] Protocol Ondansetron HCl 4 mg 03/13/22 05:48 Ondansetron 4 Mg/2 Ml Inj IV Q8H PRN Nausea And Vomiting Senna/Docusate Sodium 1 tab 03/16/22 10:00 03/18/22 00:26 Sennosides/Docusate Sodium 8.6/50 Mg Tab PO Not Given Q12H [facility] Sodium Chloride 10 ml 03/13/22 10:00 03/18/22 00:26 Sodium Chloride 0.9% 10 Ml Flush Syringe IV 10 ml BID GERRI Administration Sodium Chloride 10 ml 03/13/22 05:48 03/15/22 05:06 Sodium Chloride 0.9% 10 Ml Flush Syringe IV 10 ml PRN PRN Administration LINE FLUSH Spironolactone 50 mg 03/13/22 15:00 03/17/22 11:17 Spironolactone 50 Mg Tab PO 50 mg QDAY GERRI Administration Nutrition/Malnutrition Assess - Dietary Evaluation Nutrition/Malnutrition Findings: Nutrition Notes Start: 03/14/22 12:45 Freq: Status: Active Protocol: Document 03/16/22 15:27 MASOUD (Rec: 03/16/22 15:38 MASOUD [id number]) Nutrition Notes Initial or Follow up Brief Note Current Diagnosis COPD,Diabetes,Hypertension, Respiratory Failure Other Pertinent Diagnosis Encephalopathy, CHF, L-LE Stasis Dermatitis, Abdominal Pain/Nausea. Current Diet Consistent Carbohydrates Diet (since L 03/16). Height 6 ft Weight 196 kg Golden Body Weight (kg) 80.90 BMI 58.6 Weight change and time frame 2.8 Kg body weight loss reported in 2 days. Weight Status Morbidly Obese Subjective/Other Information RD consult for routine F/U on TF tolerance/continuation. Diet advanced to PO, Bedside Swallow Screen passed, according to RN notes. No reports available on Pt's PO intake of meals at the time , will assess at F/U. RN note on 03/16/22 09:07: 0700 Report completed. Assessment on patient completed. 0852 Reviewed patient with [employer]ER. Bedside swallow completed with pass. Diet to be ordered. 1120 NGT removed per orders. Reviewed rome catheter with FLASK CLE[employer]ER. Pt is on Nasal Cannula, O2 saturation @ 92%, according to Physical Assessment History notes. Percent of energy/protein needs met: Prescribed Consistent Carbohydrates Diet provides for energy/protein needs (2, 061 Kcal/91 g) during LOS. #1 Nutrition Diagnosis Inadequate oral intake Diagnosis Progress(for reassessment Resolved documentation) Is patient on ventilator? No Is Patient Ambulatory and/or Out of Bed No REE-([facility]-confined to bed) 3408.432 Kcal/Kg value to use for calculation 12 Approximate Energy Requirements Using 2352 kcal/Kg Calculation Used for Recommendations Kcal/kg Additional Notes Protein: 0.8-1 g/Kg AdjBW; 112 -140 g/day. Fluids: 1 ml/Kcal, or as per MD. Nutrition Intervention Change Diet Order: Advance to Consistent Carbohydrates Diet as tolerated. Nutrition Support: Discontinued. Goal #1 Adjust the dietary intervention to better serve Pt's needs and clinical conditions during LOS. Goal #2 Maintain body weight within +/ -3% of admission body weight during LOS. Follow-Up By: 03/23/22 Additional Comments Start monitoring food tolerance, %PO intake of meals , and BM.
[2022-03-18] MEDS: ACETAMINOPHEN 325 MG TAB PO PRN (15:48)
--- NOTE | 2022-03-18 16:33 | Vascular Lab Report ---
DUPLEX DOPPLER LOWER EXTREMITY VEINS, BILATERAL INDICATION / CLINICAL INFORMATION: swelling. TECHNIQUE: Duplex doppler imaging was performed through the veins of both lower extremities using marely ous compression and other maneuvers. COMPARISON: None available. FINDINGS: RIGHT COMMON FEMORAL VEIN: Negative. RIGHT FEMORAL VEIN: Negative. RIGHT POPLITEAL VEIN: Negative. RIGHT CALF VEINS: Negative. LEFT COMMON FEMORAL VEIN: Negative. LEFT FEMORAL VEIN: Negative. LEFT POPLITEAL VEIN: Negative. LEFT CALF VEINS: Negative. ADDITIONAL FINDINGS: Superficial varicose veins are noted bilaterally in the lower legs. IMPRESSION: 1. No sonographic evidence for DVT in either lower extremity. Signer Name: Parish Weiner MD Signed: 03/18/2022 4:29 PM Workstation Name: [id number]
[2022-03-18] MEDS: LISINOPRIL 20 MG TAB PO SCH (18:46)
[2022-03-19] MEDS: NITROGLYCERIN 2% OINT 1 GM TP SCH ×2 (05:03→12:49)
[2022-03-19] MEDS: hydrALAZINE 10 MG TAB PO SCH ×3 (05:03→14:30)
[2022-03-19] MEDS: FUROSEMIDE 40 MG/4 ML INJ IV SCH (05:03)
[2022-03-19] MEDS: INSULIN LISPRO 100 UNIT/ML SUB-Q SCH ×2 (07:42→12:54)
[2022-03-19 08:14] LABS: BUN/Creatinine Ratio 24; Blood Urea Nitrogen 22 mg/dL (9-20); Calcium 8.8 mg/dL (8.4-10.2); Hemolysis Index 0
[2022-03-19] MEDS: SPIRONOLACTONE 50 MG TAB PO SCH ×2 (08:43→09:31)
[2022-03-19] MEDS: SENNOSIDES/DOCUSATE SODIUM 8.6/50 MG TAB PO SCH ×2 (08:43→09:31)
[2022-03-19] MEDS: carvediloL 3.125 MG TAB PO SCH ×2 (08:44→09:32)
[2022-03-19] MEDS: LISINOPRIL 20 MG TAB PO SCH ×2 (08:44→09:31)
[2022-03-19] MEDS: FAMOTIDINE 20 MG TAB PO SCH ×2 (08:44→09:31)
[2022-03-19] MEDS: HEPARIN 5,000 UNIT/1 ML VIAL SUB-Q SCH ×2 (09:28)
--- NOTE | 2022-03-19 10:54 | Progress Note ---
Assessment and Plan - Patient Problems (1) CHF (congestive heart failure) Current Visit: Yes Status: Acute (2) Acute respiratory failure with hypoxia and hypercapnia Current Visit: Yes Status: Acute Subjective Date of service: 03/19/22 Principal diagnosis: Acute hypoxemic and hypercapnic Resp Failure; AE-CHF; Probable AGUS/OHS; CHF Interval history: FEELS GOOD,,,AMBULATING Objective Vital Signs Temp Pulse Resp BP BP Pulse Ox 03/19/22 08:57 100 03/19/22 08:44 70 127/85 03/19/22 08:43 70 127/85 03/19/22 08:36 93 03/19/22 07:40 97.6 F 70 20 127/85 100 03/19/22 04:49 68 19 127/81 97 03/19/22 04:15 98.6 F 70 19 127/81 97 03/19/22 02:00 77 03/19/22 00:30 69 20 97 03/19/22 00:22 97.8 F 48 L 20 105/59 95 03/18/22 20:45 98 03/18/22 20:10 98.6 F 73 20 130/89 94 03/18/22 20:00 99 03/18/22 16:17 98.5 F 69 18 106/56 96 03/18/22 15:02 95 03/18/22 14:49 69 03/18/22 12:39 98.6 F 75 18 106/56 96 - Physical Examination General: No Apparent Distress, Other (Morbidly obese) HEENT: Positive: PERRL, Normocephaly, Mucus Membranes Moist. Negative: Jaundice Neck: Positive: neck supple, trachea midline. Negative: JVD/HJR Cardiac: Positive: Reg Rate and Rhythm Lungs: Positive: Decreased Breath Sounds Neuro: Positive: Grossly Intact Abdomen: Positive: Soft, Active Bowel Sounds Skin: Positive: Clear Extremities: Present: edema (Trace), Other (peripheral ulcer left leg, hyperpigmentation both lower legs with vascular skin changes) - Labs and Meds Comprehensive Metabolic Panel 03/18/22 03/19/22 Range/Units 12:37 07:25 Sodium 137 137 (137-145) mmol/L Potassium 4.2 4.3 (3.6-5.0) mmol/L Chloride 94.9 L 94.7 L (98-107) mmol/L Carbon Dioxide 33 H 35 H (22-30) mmol/L BUN 22 H 22 H (9-20) mg/dL Creatinine 0.8 0.9 (0.8-1.3) mg/dL Glucose 109 H 96 (75-100) mg/dL Calcium 9.0 8.8 (8.4-10.2) mg/dL - EKG Sinus rhythms and dysrhythmias: sinus rhythm - Allied health notes Allied health notes reviewed: nursing
[2022-03-19 12:09] VITALS: BP 138/82
[2022-03-19] MEDS: ACETAMINOPHEN 325 MG TAB PO PRN (12:49)
--- NOTE | 2022-03-19 12:58 | Discharge Summary ---
Providers - Providers Date of Admission: 03/13/22 05:49 Date of discharge: 03/19/22 Attending physician: GABRIELLE FROST MD 03/13/22 06:29 Consult to Wound/ET Nurse [CONS] Routine Reason For Exam: wound eval-left lower extremity ulcer 03/13/22 11:10 Consult to Physician [CONS] Routine Comment: Consulting Provider: ANNETTE GREGG Physician Instructions: Reason For Exam: Acute resp failure with hypoxia and hypercarbia 03/14/22 09:48 Consult to Dietitian/Nutrition [CONS] Routine Physician Instructions: Reason For Exam: Reason for Consult: Write/Manage Tube Feeding 03/16/22 08:55 Occupational Therapy Evaluate and Treat [CONS] Urgent Comment: Reason For Exam: Post extubation Physical Therapy Evaluation and Treat [CONS] Urgent Comment: Reason For Exam: Post extubation Primary care physician: JUANA FERRERA Hospitalization Reason for admission: Acute on chronic diastolic heart failure Condition: Fair Pertinent studies: Reviewed. Procedures: None. Hospital course: This is a 56-year-old male with CHF, DM, HTN, MO presents to the emergency department on 03/13 with complaints of diffuse abdominal pain which started earlier in the day with nausea and intermittent shortness of breath on exertion. In the emergency department patient had an episode of respiratory distress and became hypoxic and was placed on nonrebreather with improvement his oxygen saturations. Work-up in the emergency department included a CXR which showed mild pulmonary vascular congestion and cardiomegaly and lab work significant for elevated creatinine of 1.1. Patient was admitted to the hospitalist service with consults to cardiology. While in the emergency department patient's respiratory distress progressed to acute hypercarbic respiratory failure with decompensated respiratory acidosis while on BiPAP and patient became u nresponsive and had to be intubated in the emergency department. [facility] was sent consulted and patient transferred to ICU. Hospital course to date: 03/14: Patient remains intubated with FiO2 of 70%, CXR shows cardiomegaly with pulmonary edema. We will continue antibiotics until procalcitonin results. Continue diuresis. Wean respiratory support as tolerated. Fentanyl as needed as needed. Patient has sedated however states that he is comfortable. 03/15: Weaning Fi02 as tolerated. No acute events overnight. 03/16: BiPAP qhs, 5l NC while awake, transfer to [facility]. Cardiology will continue IV lasix so will keep rome in place. Transfer to [facility] 03/17: currently on 3 l/min nc. awake, resting comfortably. Cardiology believes ECHO shows normal EF but visualization difficult. Agree with recommended cardiac MRI OP. Added lisinopril for GDMT HF management. Net fluid balance -4100 cc yesterday. Continue additional diuresis today. Plan for potential d/c tomorrow. 03/18: Currently on 3 L nasal cannula. Continue with IV diuresis while working to wean oxygen requirement. Patient described only using supplemental oxygen at home as needed. Continue to monitor. Plan for potential discharge in 24-72 hours. Disposition: 01 HOME / SELF CARE / HOMELESS Final Discharge Diagnosis (Prints w/discharge instructions): Acute on chronic diastolic heart failure, unspecified cardiomyopathy, hypertension, obstructive sleep apnea, obesity hypoventilation syndrome, cor pulmonale, morbid obesity, noninsulin-dependent type 2 diabetes mellitus Time spent for discharge: 45 min Core Measure Documentation - Palliative Care Palliative Care/ Comfort Measures: Not Applicable - Core Measures Any of the following diagnoses?: heart failure - Heart Failure Discharge Requirements BELEN/ARB for LVSD if EF <40%: Yes Beta latrell at discharge: Yes Exam - Constitutional Vitals: Temp Pulse Resp BP Pulse Ox 97.6 F 71 18 138/82 91 03/19/22 11:35 03/19/22 12:50 03/19/22 11:35 03/19/22 12:50 03/19/22 11:35 General appearance: Present: no acute distress, obese - EENT Eyes: Present: PERRL, EOM intact ENT: hearing intact, clear oral mucosa, dentition normal - Neck Neck: Present: supple, normal ROM - Respiratory Respiratory effort: normal Respiratory: bilateral: diminished - Cardiovascular Rhythm: regular Heart Sounds: Present: S1 & S2 - Extremities Extremities: no ischemia, pulses intact, pulses symmetrical, normal temperature, normal color Peripheral Pulses: within normal limits - Abdominal General gastrointestinal: Present: soft, non-tender, non-distended, normal bowel sounds Male genitourinary: Present: deferred - Rectal Rectal Exam: deferred - Integumentary Integumentary: Present: clear, warm, dry - Musculoskeletal Musculoskeletal: strength equal bilaterally - Psychiatric Psychiatric: appropriate mood/affect, memory intact, cooperative - Neurologic Neurologic: CNII-XII intact, moves all extremities - Allied Health Allied health notes reviewed: nursing Plan Activity: advance as tolerated Diet: low salt Special Instructions: restrict fluid intake to (2 L/day) Additional Instructions: This is a 56-year-old male with CHF, DM, HTN, MO presents to the emergency department on 03/13 with complaints of diffuse abdominal pain which started earlier in the day with nausea and intermittent shortness of breath on exertion. In the emergency department patient had an episode of respiratory distress and became hypoxic and was placed on nonrebreather with improvement his oxygen saturations. Work-up in the emergency department included a CXR which showed mild pulmonary vascular congestion and cardiomegaly and lab work significant for elevated creatinine of 1.1. Patient was admitted to the hospitalist service with consults to cardiology. While in the emergency department patient's respiratory distress progressed to acute hypercarbic respiratory failure with decompensated respiratory acidosis while on BiPAP and patient became unresponsive and had to be intubated in the emergency department. [facility] was sent consulted and patient transferred to ICU. Hospital course to date: 03/14: Patient remains intubated with FiO2 of 70%, CXR shows cardiomegaly with pulmonary edema. We will continue antibiotics until procalcitonin results. Continue diuresis. Wean respiratory support as tolerated. Fentanyl as needed as needed. Patient has sedated however states that he is comfortable. 03/15: Weaning Fi02 as tolerated. No acute events overnight. 03/16: BiPAP qhs, 5l NC while awake, transfer to IM. Cardiology will continue IV lasix so will keep rome in place. Transfer to [facility]. 03/17: currently on 3 l/min nc. awake, resting comfortably. Cardiology believes ECHO shows normal EF but visualization difficult. Agree with recommended cardiac MRI OP. Added lisinopril for GDMT HF management. Net fluid balance -4100 cc yesterday. Continue additional diuresis today. Plan for potential d/c tomorrow. 03/18: Currently on 3 L nasal cannula. Continue with IV diuresis while working to wean oxygen requirement. Patient described only using supplemental oxygen at home as needed. Continue to monitor. Plan for potential discharge in 24-72 hours. Care Plan Goals: Patient is medically clear for discharge. Assessment: This is a 56-year-old male with CHF, DM, HTN, MO presents to the emergency department on 03/13 with complaints of diffuse abdominal pain which started earlier in the day with nausea and intermittent shortness of breath on exertion. In the emergency department patient had an episode of respiratory distress and became hypoxic and was placed on nonrebreather with improvement his oxygen saturations. Work-up in the emergency department included a CXR which showed mild pulmonary vascular congestion and cardiomegaly and lab work significant for elevated creatinine of 1.1. Patient was admitted to the hospitalist service with consults to cardiology. While in the emergency department patient's respiratory distress progressed to acute hypercarbic respiratory failure with decompensated respiratory acidosis while on BiPAP and patient became unresponsive and had to be intubated in the emergency department. [facility] was sent consulted and patient transferred to ICU. Hospital course to date: 03/14: Patient remains intubated with FiO2 of 70%, CXR shows cardiomegaly with p ulmonary edema. We will continue antibiotics until procalcitonin results. Continue diuresis. Wean respiratory support as tolerated. Fentanyl as needed as needed. Patient has sedated however states that he is comfortable. 03/15: Weaning Fi02 as tolerated. No acute events overnight. 03/16: BiPAP qhs, 5l NC while awake, transfer to [facility]. Cardiology will continue IV lasix so will keep rome in place. Transfer to [facility] 03/17: currently on 3 l/min nc. awake, resting comfortably. Cardiology believes ECHO shows normal EF but visualization difficult. Agree with recommended cardiac MRI OP. Added lisinopril for GDMT HF management. Net fluid balance -4100 cc yesterday. Continue additional diuresis today. Plan for potential d/c tomorrow. 03/18: Currently on 3 L nasal cannula. Continue with IV diuresis while working to wean oxygen requirement. Patient described only using supplemental oxygen at home as needed. Continue to monitor. Plan for potential discharge in 24-72 hours. Follow up with: JUANA FERRERA MD [Primary Care Provider] - 7 Days Forms: Work/School Release Form Prescriptions: AtorvaSTATin [Lipitor] 40 mg PO QHS #30 tab Spironolactone [Aldactone] 50 mg PO QDAY #30 tablet hydrALAZINE [Apresoline TAB] 10 mg PO Q8HR #90 tablet Aspirin [Aspirin BABY CHEW TAB] 81 mg PO QDAY #30 tab carvediloL [Coreg] 3.125 mg PO BID #60 tablet lisinopriL [Zestril TAB] 20 mg PO QDAY #30 tablet
--- NOTE | 2022-03-19 13:20 | Progress Note ---
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 DM II - lower extremity dopplers re-ordered to evaluate for VTE - continue NIV scheduled qhs with prn daytime use - continue care as below otherwise; - accuchecks with glycemic control per SSI for target blood glucose of < 180 mg/dL; avoid hypoglycemia - supplemental oxygen for target O2 sat's > 90% acutely - aspiration precautions - bronchodilators with pulmonary hygiene per RT - wean per pulmonary driven protocols otherwise - avoid nephrotoxins, renally dose all medications - continue to avoid benzodiazepine's, reduce the possibility of delirium - AB's per ID rec's - prn analgesia per pain score - Maintenance of sleep-wake cycle, avoid delirium - continue enteral nutritional support at goal rate as tolerated - G.I. & VTE prophylaxis - PT/OT/ROM exercises - continue mobility protocols for pressure ulcer prophylaxis - Monitor hemodynamics closely - continue other care per attending / other consultants - discharge planning ongoing concurrently .... Re-evaluate in am & prn Subjective Date of service: 03/19/22 Principal diagnosis: Acute hypoxemic and hypercapnic Resp Failure; AE-CHF; Probable AGUS/OHS; CHF Interval history: Patient is seen today for: Acute and chronic hypoxemic and hypercapnic Respiratory Failure; AE-CHF; h/o Tracheostomy; Probable AGUS/OHS; Extreme obesity; Acute decompensated chronic combined systolic and diastolic heart failure; DM II Seen and examined at bedside; 24hour events reviewed; nursing and respiratory care staff consulted; no adverse overnight events reported to me; resting peacefully in bed; remains on supplemental oxygen at 2L flow; slept well on BIPAP; Objective Vital Signs - 12hr 03/19/22 03/19/22 03/19/22 02:00 04:15 04:49 Temperature 98.6 F Pulse Rate 77 70 68 Respiratory 19 19 Rate Blood Pressure 127/81 127/81 O2 Sat by Pulse 97 97 Oximetry 03/19/22 03/19/22 03/19/22 07:40 08:36 08:43 Temperature 97.6 F Pulse Rate 70 70 Respiratory 20 Rate Blood Pressure 127/85 127/85 O2 Sat by Pulse 100 93 Oximetry 03/19/22 03/19/22 03/19/22 08:44 08:57 11:35 Temperature 97.6 F Pulse Rate 70 71 Respiratory 18 Rate Blood Pressure 127/85 138/82 O2 Sat by Pulse 100 91 Oximetry 03/19/22 03/19/22 12:49 12:50 Temperature Pulse Rate 71 71 Respiratory Rate Blood Pressure 138/82 138/82 O2 Sat by Pulse Oximetry Constitutional: no acute distress, alert, other (atruamatic, normocephalic, large neck) Eyes: non-icteric ENT: other (BIPAP FFM) Neck: supple, no lymphadenopathy, other (short large neck) Effort: normal Ascultation: Bilateral: diminished breath sounds, rhonchi (bases) Percussion: Bilateral: not dull Cardiovascular: regular rate and rhythm, other (S1,S2) Gastrointestinal: normoactive bowel sounds, soft, non-tender, non-distended Integumentary: rash (stasis dermatitis) Extremities: pulses normal, no ischemia or petechiae, edema (3+, scrotal edema, anterior abdominal wall edema) Neurologic: normal mental status, non-focal exam, pupils equal and round, motor strength normal and Psychiatric: mood appropriate, affect normal CBC and BMP: 03/17/22 05:10 03/19/22 07:25 ABG, PT/INR, D-dimer: ABG ABG pH 7.511 pH Units (7.350-7.450) H 03/15/22 08:32 ABG pCO2 42.7 mm Hg 03/15/22 08:32 ABG pO2 68.3 mm Hg (80.0-90.0) L 03/15/22 08:32 ABG O2 Saturation 95.6 % (95.0-99.0) 03/15/22 08:32 Abnormal lab findings: Abnormal Labs 03/13/22 03/13/22 03/13/22 02:30 02:30 07:50 RBC Hgb 11.0 L MCV 80 L MCH 25 L MCHC 31 L RDW 21.0 H Starke % (Auto) 10.1 H Seg Neuts % (Manual) Lymphocytes % (Manual) Lymphocytes # (Manual) ABG pH 7.001 L* ABG pO2 90.8 H ABG HCO3 41.7 H ABG O2 Saturation 90.4 L ABG Base Excess 5.7 H ABG Hemoglobin 12.1 L Oxyhemoglobin 87.7 L Potassium Chloride Carbon Dioxide 33 H BUN 23 H Glucose POC Glucose Calcium 8.1 L NT-Pro-B Natriuret Pep 4736 H Albumin 3.5 L Lipase 12 L 03/13/22 03/13/22 03/14/22 11:10 21:52 02:50 RBC Hgb MCV MCH MCHC RDW Starke % (Auto) Seg Neuts % (Manual) Lymphocytes % (Manual) Lymphocytes # (Manual) ABG pH ABG pO2 56.8 L ABG HCO3 35.2 H ABG O2 Saturation 93.6 L ABG Base Excess 9.6 H ABG Hemoglobin 12.1 L Oxyhemoglobin 91.0 L Potassium Chloride 97.2 L Carbon Dioxide BUN 23 H Glucose 132 H POC Glucose 107 H Calcium 7.6 L NT-Pro-B Natriuret Pep Albumin Lipase 03/14/22 03/14/22 03/14/22 05:24 09:54 12:21 RBC Hgb MCV MCH MCHC RDW Starke % (Auto) Seg Neuts % (Manual) Lymphocytes % (Manual) Lymphocytes # (Manual) ABG pH 7.478 H ABG pO2 76.2 L ABG HCO3 33.5 H ABG O2 Saturation ABG Base Excess 8.9 H ABG Hemoglobin 11.4 L Oxyhemoglobin 94.8 L Potassium Chloride Carbon Dioxide BUN Glucose POC Glucose 145 H 149 H Calcium NT-Pro-B Natriuret Pep Albumin Lipase 03/14/22 03/14/22 03/14/22 16:32 21:50 Unknown RBC Hgb 11.2 L MCV 78 L MCH 25 L MCHC 31 L RDW 20.8 H Starke % (Auto) Seg Neuts % (Manual) 89.0 H Lymphocytes % (Manual) 4.0 L Lymphocytes # (Manual) 0.3 L ABG pH ABG pO2 ABG HCO3 ABG O2 Saturation ABG Base Excess ABG Hemoglobin Oxyhemoglobin Potassium Chloride Carbon Dioxide BUN Glucose POC Glucose 125 H 115 H Calcium NT-Pro-B Natriuret Pep Albumin Lipase 03/15/22 03/15/22 03/15/22 04:17 04:17 08:32 RBC Hgb 11.6 L MCV 79 L MCH 24 L MCHC 30 L RDW 21.1 H Starke % (Auto) Seg Neuts % (Manual) Lymphocytes % (Manual) Lymphocytes # (Manual) ABG pH 7.511 H ABG pO2 68.3 L ABG HCO3 33.4 H ABG O2 Saturation ABG Base Excess 9.5 H ABG Hemoglobin 13.3 L Oxyhemoglobin 93.5 L Potassium 3.3 L Chloride Carbon Dioxide BUN 21 H Glucose POC Glucose Calcium NT-Pro-B Natriuret Pep Albumin Lipase 03/16/22 03/16/22 03/16/22 08:04 08:04 16:10 RBC 5.37 H Hgb MCV 80 L MCH 24 L MCHC 30 L RDW 21.1 H Starke % (Auto) Seg Neuts % (Manual) Lymphocytes % (Manual) Lymphocytes # (Manual) ABG pH ABG pO2 ABG HCO3 ABG O2 Saturation ABG Base Excess ABG Hemoglobin Oxyhemoglobin Potassium Chloride 96.8 L Carbon Dioxide 33 H BUN Glucose POC Glucose 112 H Calcium NT-Pro-B Natriuret Pep Albumin Lipase 03/17/22 03/17/22 03/18/22 05:10 05:10 08:27 RBC 5.39 H Hgb MCV 80 L MCH 24 L MCHC 30 L RDW 20.7 H Starke % (Auto) Seg Neuts % (Manual) Lymphocytes % (Manual) Lymphocytes # (Manual) ABG pH ABG pO2 ABG HCO3 ABG O2 Saturation ABG Base Excess ABG Hemoglobin Oxyhemoglobin Potassium Chloride 97.0 L Carbon Dioxide 35 H BUN Glucose 109 H POC Glucose 117 H Calcium NT-Pro-B Natriuret Pep Albumin Lipase 03/18/22 03/18/22 03/19/22 12:37 21:41 07:25 RBC Hgb MCV MCH MCHC RDW Starke % (Auto) Seg Neuts % (Manual) Lymphocytes % (Manual) Lymphocytes # (Manual) ABG pH ABG pO2 ABG HCO3 ABG O2 Saturation ABG Base Excess ABG Hemoglobin Oxyhemoglobin Potassium Chloride 94.9 L 94.7 L Carbon Dioxide 33 H 35 H BUN 22 H 22 H Glucose 109 H POC Glucose 135 H Calcium NT-Pro-B Natriuret Pep Albumin Lipase Allied health notes reviewed: nursing
--- NOTE | 2022-03-22 12:05 | Electrocardiograph Report ---
[facility] Test Date: 2022-03-13 Test Time: 02:37:33 Pat Name: JEFFY GUNTER Department: Room: A467 Gender: M [employer] Operator: LAURA : 1965 Requested By: RADHA OLIVIER Order Number: [id number] Reading MD: Ben Mancera Measurements Intervals [place] Rate: 78 P: 59 SD: 178 QRS: 52 QRSD: 116 T: -43 QT: 428 QTc: 482 Interpretive Statements Sinus rhythm Atrial premature complexes Incomplete right bundle branch block Low voltage, precordial leads T wave inversions consider inferolateral ischemia No previous ECG available for comparison Electronically Signed On 03-22-2022 12:04:54 EDT by Ben Mancera
== END 2022-03-19 14:42 | disposition home or self-care (01) | DRG 208 ==
LOC: ED 01:23 → 4A 05:49 → CC1 11:02 → IMCU 03-16 17:55 → 4A 03-17 17:30
PROVIDERS: ADMIT Internal Medicine Geriatric Medicine; ATTEND Student in an Organized Health Care Education/Training Program
PROC: 5A1945Z Respiratory Ventilation, 24-96 Consecutive Hours (ICD-10-PCS; principal; 2022-03-13)
PROC: 0BH17EZ Insertion of Endotracheal Airway into Trachea, Via Natural or Artificial Opening (ICD-10-PCS; 2022-03-13)
PROC: 4A033R1 Measurement of Arterial Saturation, Peripheral, Percutaneous Approach (ICD-10-PCS; 2022-03-13)
PROC: 5A09357 Assistance with Respiratory Ventilation, Less than 24 Consecutive Hours, Continuous Positive Airway Pressure (ICD-10-PCS; 2022-03-13)
PROC: 5A09357 Assistance with Respiratory Ventilation, Less than 24 Consecutive Hours, Continuous Positive Airway Pressure (ICD-10-PCS; 2022-03-15)
PROC: 0BP1XDZ Removal of Intraluminal Device from Trachea, External Approach (ICD-10-PCS; 2022-03-15)
PROC: 5A09357 Assistance with Respiratory Ventilation, Less than 24 Consecutive Hours, Continuous Positive Airway Pressure (ICD-10-PCS; 2022-03-16)
PROC: 5A09357 Assistance with Respiratory Ventilation, Less than 24 Consecutive Hours, Continuous Positive Airway Pressure (ICD-10-PCS; 2022-03-17)
PROC: 5A09357 Assistance with Respiratory Ventilation, Less than 24 Consecutive Hours, Continuous Positive Airway Pressure (ICD-10-PCS; 2022-03-19)
DX: J96.21 Acute and chronic respiratory failure with hypoxia (principal); I50.43 Acute on chronic combined systolic (congestive) and diastolic (congestive) heart failure; E66.2 Morbid (severe) obesity with alveolar hypoventilation; Z68.43 Body mass index [BMI] 50.0-59.9, adult; J44.1 Chronic obstructive pulmonary disease with (acute) exacerbation; G93.40 Encephalopathy, unspecified; E87.2 Acidosis; L03.116 Cellulitis of left lower limb; L03.115 Cellulitis of right lower limb; I42.0 Dilated cardiomyopathy; I11.0 Hypertensive heart disease with heart failure; J96.22 Acute and chronic respiratory failure with hypercapnia; E87.6 Hypokalemia; I27.81 Cor pulmonale (chronic); I87.2 Venous insufficiency (chronic) (peripheral); E11.9 Type 2 diabetes mellitus without complications; Z71.3 Dietary counseling and surveillance; Z79.899 Other long term (current) drug therapy
CPT/HCPCS: 36415; 36600; 70360; 71045; 74177; 80048; 80053; 81001; 82803; 82962; 83690; 83735; 83880; 84145; 85007; 85025; 85027; 87070; 87205; 93005; 93306; 93970; 94002; 94003; 94640; 94660; 94760; G0378; J3490; C8929; J0360; J0456; J0696; J1644; J1940; J2250; J2270; J2310; J2405; J2920; J2930; J3010; Q9967